=== PATIENT | male | born 1935 | race Caucasian/White ===

== ENCOUNTER 2020-01-19 13:55 | Outpatient (CLI) | payer MEDICARE, SELFPAY ==
--- NOTE | ~2020-01-19 | US_ITS ---
EXAMINATION: US arterial ankle brachial ind DATE: 01/19/2020 14:49 INDICATION: Peripheral arterial occlusive disease. TECHNIQUE: Segmental pressures and plethysmographic and Doppler waveforms of the brachial and lower e xtremity arteries were obtained. COMPARISON: 01/01/2019 FINDINGS: Right and left brachial artery pressures of 130 mm Hg and 115 mm Hg, respectively, are concordant (no rmal difference <= 30 mmHg). The right ankle-brachial index (YOVANNY) is unable to be obtained due to inability to occlude the vessel. The right great toe-brachial index (TBI) is 0.42 (normal >= 0.65). Arterial Doppler waveforms are tr iphasic with brisk systolic upstrokes at both the right posterior tibial and dorsalis pedis arteries. The left YOVANNY is unable to be obtained due to inability to occlude the vessels. The left TBI is 0.40. Arterial Doppler waveforms are triphasic with brisk systolic upstrokes at both the left posterior tib ial and dorsalis pedis arteries. IMPRESSION: 1. 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 Reviewed, dictated and finalized at location A. UNITY RECREATION PROGRAMMER IMPRESSION: 1. 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
== END 2020-01-19 13:56 | disposition home or self-care (01) ==
LOC: CHSIMG 13:56
PROVIDERS: PCP Internal Medicine; Visit Provider Internal Medicine
DX: I73.9 Peripheral vascular disease, unspecified (principal)
CPT/HCPCS: 93922

== ENCOUNTER 2020-01-27 14:07 | Outpatient (CLI) | payer MEDICARE, SELFPAY ==
--- NOTE | ~2020-01-27 | CT_ITS ---
EXAMINATION: CTA neck EXAM DATE: 01/27/2020 15:33 INDICATION: Headache. TECHNIQUE: Spiral CTA of the carotid arteries was performed with intravenous injection 100cc of Omnip aque 350. Axial, coronal, sagittal reformatted images reviewed. Additional reformatted images creat ed on dedicated 3-D workstation. NASCET comparable standard used to assess the degree of arterial st enosis. The dose-length product (DLP) for this examination was 579.59 mGy-cm. The exposure was tail ored according to patient size (auto mA exposure control), and iterative reconstruction (ASIR) was us ed as additional dose reduction technique. There is no prior study for comparison. FINDINGS: There is only minimal amount of carotid enhancement at time of imaging. There is moderate r ight, mild left carotid bulb arterial sclerosis with right carotid 45% stenosis, 0% left carotid sten osis. No cervical lymphadenopathy. Advanced cervical spondylosis. Bilateral carotid siphon arterial s clerosis. Right vertebral artery is dominant. Advanced cervical spondylosis. IMPRESSION: 1. Right carotid bulb 45% stenosis. 2. Left carotid bulb 0% stenosis. . Reviewed, dictated and finalized at location B. GER FEDERAL
--- NOTE | ~2020-01-27 | CT_ITS ---
EXAMINATION: CT brain wo/w con DATE: 01/27/2020 15:36 INDICATION: Trach. History is severe carotid stenosis. TECHNIQUE: Computed tomography (CT) of the head was performed without and with 100 mL Omnipaque-350 i ntravenous contrast. Sagittal and coronal reconstructions were performed. Stevie dose Cullen head Th e dose-length product was 605.33 mGy-cm. COMPARISON: head CT dated 11/13/2016 FINDINGS: Small old lacunar infarct at the body of the right caudate. No acute intracranial hemorrhage, acute i nfarction or abnormal extra axial fluid collection. Symmetric prominence of the sulci and subarachnoi d spaces overlying the convexities consistent with mild to moderate age-appropriate diffuse cerebral volume loss. Ventricles are normal and symmetric with normal variant cavum septum pellucidum. No mass /mass effect. No abnormally enhancing brain lesions. Intracranial calcified cerebral atherosclerosis is noted. Although not performed as a dedicated CT angiogram and contrast opacification is suboptimal , there appears to be either diminutive or absent distal portion of the intracranial left vertebral a rtery. Changes of bilateral intraocular lens replacement. The orbits, paranasal sinuses and mastoid air cells are normal. IMPRESSION: 1. No acute intracranial process or abnormally enhancing brain lesions. 2. 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 Reviewed, dictated and finalized at location A. RLEADER
--- NOTE | ~2020-01-27 | XR_ITS ---
EXAMINATION: XR hip LT min 2V DATE: 01/27/2020 14:44 INDICATION: Left hip pain. TECHNIQUE: 2 views of left hip were obtained. COMPARISON: Left hip radiographs 06/06/2016 FINDINGS: Bone alignment is normal. No fracture. There is mild left hip osteoarthritis. Surgical clip s overlie the pelvis. IMPRESSION: 1. Mild left hip osteoarthritis. Reviewed, dictated and finalized at location A. BURSEMENT CONSULTANT
[2020-01-27 14:34] LABS: Estimated Glomerular Filt Rate 56
== END 2020-01-27 14:08 | disposition home or self-care (01) ==
LOC: CHSIMG 14:10
PROVIDERS: PCP Internal Medicine; Visit Provider Internal Medicine
DX: R51 Headache (principal); M25.552 Pain in left hip
CPT/HCPCS: 70470; 70498; 73502; Q9965

== ENCOUNTER 2020-01-28 12:31 | Emergency (ER) | payer MEDICARE, SELFPAY ==
--- NOTE | ~2020-01-28 | XR_ITS ---
EXAMINATION: XR shoulder LT min 2V EXAM DATE: 01/28/2020 13:15 INDICATION: Left shoulder. Fall. TECHNIQUE: The following left shoulder projections obtained: frontal projection with internal rotatio n, frontal projection with external rotation, Grashey, and scapular Y view (4+ views). Comparison is made to prior examination from 05/11/2018. FINDINGS: No evidence of left shoulder rotator cuff calcific tendinosis. There is mild glenohumera l, moderate acromioclavicular joint primary osteoarthritis. There are no acute fractures or dislocati ons identified. There is no subcutaneous gas. The soft tissue is unremarkable. There are no radio paque foreign bodies. IMPRESSION: 1. XR shoulder LT min 2V exam without acute osseous findings. Reviewed, dictated and finalized at location B. INE FURNACE TENDER
--- NOTE | ~2020-01-28 | XR_ITS ---
EXAMINATION: XR shoulder RT min 2V EXAM DATE: 01/28/2020 13:16 INDICATION: Initial encounter following injury, with pain of the right shoulder. TECHNIQUE: The following right shoulder projections obtained: frontal projection with internal rotati on, frontal projection with external rotation, Grashey, and scapular Y view (4+ views). There is no prior study for comparison. FINDINGS: There is moderate glenohumeral and acromioclavicular joint primary osteoarthritis. There are no acute fractures or dislocations identified. There is no subcutaneous gas. The soft tissue i s unremarkable. There are no radiopaque foreign bodies. IMPRESSION: 1. XR shoulder RT min 2V exam without acute osseous findings. Reviewed, dictated and finalized at location B. ING AND CREASING PRESS OPERATOR
--- NOTE | ~2020-01-28 | CT_ITS ---
EXAMINATION: CT brain wo con, CT cervical spine wo con EXAM DATE: 01/28/2020 13:14 (accession [id number]), 01/28/2020 13:16 (accession [id number]) INDICATION: Fall, posterior skull injury. Bilateral arm numbness. TECHNIQUE: Spiral CT of the head was performed without contrast. Axial, coronal and sagittal images were reviewed. Spiral CT of the cervical spine was performed without contrast. Axial images were rev iewed. Coronal and sagittal reformatted images were also reviewed. The dose-length product (DLP) fo r this examination was 605.33 (accession [id number]), 540.57 (accession [id number]) mGy-cm. The exposure was tailored according to patient size, and iterative reconstruction (ASIR) was used as additional dose reduction technique. Comparison is made to prior examination from 01/27/2017. FINDINGS: HEAD CT: Small old right caudate lacunar infarction. There is no acute intraparenchymal hemorrhage. No evidence of intraparenchymal brain mass lesion. No evidence of acute infarction. There is mild pe riventricular and subcortical hypodensity, nonspecific but probably related to small vessel ischemic disease. There is moderate prominence of the sulci and ventricles related to cerebral atrophy. Th ere is intracranial carotid arteriosclerosis. There is no mass effect or midline shift. There is no obstructive hydrocephalus suspected. There are no extra-axial collections. There are no acute calv arial fractures. Patient has had bilateral ocular lens surgery. Moderate size posterior scalp contu sandra/hematoma. The visualized sinuses and mastoid air cells are well aerated. CERVICAL CT: There are large endplate osteophytes. There is no evidence of acute cervical fracture. The odontoid process is intact. Pre-dens space is normal. Prevertebral soft tissue is normal. Ther e are no soft tissue abnormalities identified. There is no disc space widening or traumatic vertebra l body subluxation suspected. Moderate cervical disc disease. Advanced cervical arthropathy. A deta iled level by level evaluation of spondylosis can be added as addendum if requested. IMPRESSION: 1. No acute intracranial or cervical findings. 2. Moderate posterior scalp contusion/hematoma. 3. Advanced cervical arthropathy. Reviewed, dictated and finalized at location B. NQUENCY COUNSELOR IMPRESSION: 1. No acute intracranial or cervical findings. 2. Moderate posterior scalp contusion/hematoma. 3. Advanced cervical arthropathy.
[2020-01-28 12:35] VITALS: BP 124/71; PULSE 62; RESP 15; TEMP 36.4; O2SAT 99
--- NOTE | 2020-01-28 12:35 | ED.FALL ---
HPI - Fall General Chief Complaint: Fall Stated Complaint: ambulance Time Seen by Provider: 01/28/20 12:35 Source: patient and EMS Mode of arrival: EMS Limitations: no limitations Related Data Allergies Allergy/AdvReac Type Severity Reaction Status Date / Time No Known Allergies Allergy Verified 01/28/20 12:51 Review of Systems ENT: Reports system reviewed and no additional complaints, except as documented Cardiovascular: Cardiovascular: Reports no additional cardiovascular complaints Gastrointestinal: Gastrointestinal: Reports no additional gastrointestinal complaints Musculoskeletal: Comments: Patient concerned that he does not feel like his hands are moving like they should. Neurologic: Reports system reviewed and no additional complaints, except as documented Psychiatric: Psychiatric: Reports no additional psychiatric complaints PMFSH Past Medical History Medical History (Updated 01/28/20 @ 18:19 by Pedro Crespo MD) Atrial fibrillation Coronary artery disease Depression Peripheral neuropathy Spinal stenosis Subdural hematoma Surgical History Surgical History (Updated 01/28/20 @ 18:19 by Pedro Crespo MD) History of appendectomy History of cholecystectomy History of coronary artery stent placement History of knee replacement Social History Social History (Updated 01/28/20 @ 18:19 by Pedro Crespo MD) Smoking status: Never smoker Alcohol intake: never Substance use: never Exam Const: General: healthy appearing, no acute distress and alert Nutritional Appearance: well nourished Orientation/consciousness: patient oriented x3 HENMT: Head: hematoma left occipital Ears: external ears normal and TM abnormal Mouth: Yes lip normal Eyes: Conjunctivae: conjunctivae normal Pupils: Equal, round and reactive pupils present EOM: EOMs intact bilaterally Neck: Neck: normal visual inspection and trachea midline Resp: Effort & Inspection: normal respiratory effort Auscultation: clear to auscultation bilaterally Cardio: Rate: regular rate Rhythm: abnormal rhythm irregularly irregular GI: Auscultation: normal bowel sounds Back/Spine/Pelvis: Cervical Spine: collar present ( removed following normal CT scan.), pain with cervical ROM, Cervical spine tenderness ( posterior posterior neck in the area of C5-C6 C7) and No step off deformity Skin: General skin exam: normal color Rashes: no rashes Neuro: General: patient oriented x3, moves all extremities and no focal motor deficits Speech: normal speech Extrem: General: normal to inspection and no pedal edema Psych: Appearance: grossly normal and well kempt Mental Status: mental status grossly normal Affect: normal affect Attitude: cooperative Thought content: Yes Normal thought content present Course Vital Signs Vital signs: Vital Signs Temperature 36.4 C 01/28/20 12:35 Pulse Rate 62 01/28/20 12:35 Respiratory Rate 15 01/28/20 12:35 Blood Pressure 124/71 01/28/20 12:35 Pulse Oximetry 99 01/28/20 12:35 Temperature 36.4 C 01/28/20 12:35 Pulse Rate 62 01/28/20 12:35 Respiratory Rate 15 01/28/20 12:35 Blood Pressure 142/78 H 01/28/20 15:38 Pulse Oximetry 99 01/28/20 12:35 Discharge Plan Discharge Clinical Impression: Contusion Qualifiers: Encounter type: initial encounter Contusion area: head Contusion of head detail: scalp Qualified Code(s): S00.03XA - Contusion of scalp, initial encounter Neck strain Qualifiers: Encounter type: initial encounter Qualified Code(s): S16.1XXA - Strain of muscle, fascia and tendon at neck level, initial encounter Patient Disposition: Home, Self-Care Condition: Stable Instructions: Cervical Strain (ED), Scalp Contusion in Adults (ED) Additional Instructions: follow-up with primary care physician if not significantly improved. May have to consider MRI of the neck if worsening symptoms in the arms. Use Tylenol as needed. Follow-up/Referral
[2020-01-28 14:39] VITALS: BP 128/84
[2020-01-28 15:38] VITALS: BP 142/78
== END 2020-01-28 15:40 | disposition home or self-care (01) ==
PROVIDERS: Emergency Provider Emergency Medicine; PCP Internal Medicine
DX: S00.03XA Contusion of scalp, initial encounter (principal); S16.1XXA Strain of muscle, fascia and tendon at neck level, initial encounter; I48.91 Unspecified atrial fibrillation; I25.10 Atherosclerotic heart disease of native coronary artery without angina pectoris; W19.XXXA Unspecified fall, initial encounter
CPT/HCPCS: 70450; 72125; 73030; 99282; 99284

== ENCOUNTER 2020-06-13 08:35 | Outpatient (CLI) | payer MEDICARE, SELFPAY ==
[2020-06-13 08:49] LABS: Basophils Absolute Auto 0.03 K/mm3 (0.00-0.10); Basophils Percent Auto 0.6 % (0.0-1.0); Eosinophils Absolute Auto 0.13 K/mm3 (0.02-0.50); Eosinophils Percent Auto 2.5 % (1.0-6.0); Hematocrit 34.3 % (37.0-46.0); Hemoglobin 11.4 g/dL (12.4-15.3); Immature Granulocyte Absolute 0.02 K/mm3 (0.00-0.00); Immature Granulocyte Percent A 0.4 % (0.0-0.0); Lymphocytes Absolute Auto 1.53 K/mm3 (1.10-4.50); Lymphocytes Percent Auto 29.2 % (18.0-42.0); Mean Corpuscular HGB Conc 33.2 g/dL (32.0-36.0); Mean Corpuscular Hemoglobin 33.2 pg (27.0-31.0); Mean Platelet Volume 9.3 fl (8.7-11.0); Monocytes Absolute Auto 0.36 K/mm3 (0.10-0.90); Monocytes Percent Auto 6.9 % (2.0-11.0); Neutrophils Absolute Auto 3.2 K/mm3 (1.7-7.2); Neutrophils Percent Auto 60.4 % (50.0-70.0); Platelet Count Result 110 K/mm3 (150-420); Red Blood Count 3.43 M/mm3 (4.70-6.10); Red Cell Distribution Width 12.6 % (11.6-14.4); White Blood Count 5.2 K/mm3 (4.8-10.8)
[2020-06-13 08:59] LABS: Hemoglobin A1C 6.5 % (<5.7)
[2020-06-13 09:11] LABS: BNP 77 pg/mL (0-100)
[2020-06-13 09:35] LABS: Alanine Aminotransferase 20 U/L (16-63); Albumin Level 3.6 g/dL (3.4-5.0); Alkaline Phosphatase 47 U/L (46-116); Anion Gap 6.3 mmol/L (7-16); Aspartate Amino Transferase 17 U/L (15-37); Bilirubin,Total 0.5 mg/dL (0.00-1.00); Blood Urea Nitrogen 18 mg/dL (7-18); Calcium 9.5 mg/dL (8.5-10.1); Carbon Dioxide 32 mmol/L (21-32); Chloride 101 mmol/L (98-108); Cholesterol 100 mg/dL (0-200); Creatine Kinase 95 U/L (39-308); Estimated Glomerular Filt Rate > 60; Glucose 109 mg/dL (70-99); HDL Direct 48 mg/dL (40-60); LDL Cholesterol Calculated 37 mg/dL (<130); Magnesium 1.4 mg/dL (1.8-2.4); Osmolality Calculated 282 mOsm/kg (285-295); Potassium 4.3 mmol/L (3.5-5.1); Sodium 135 mmol/L (136-145); Total Protein 6.4 g/dL (6.4-8.2); Triglycerides 74 mg/dL (0-150)
[2020-06-13 14:43] LABS: Add Urine Microscopic? YES; Appearance Urine Clear (Clear); Bilirubin Urine Negative (Negative); Blood Urine Negative (Negative); Color Urine Yellow (Yellow); Glucose Urine UA Negative (Negative); Ketones Urine Negative (Negative); Leukocyte Esterase Ur 2+ LEU/UL (Negative); Nitrate Urine Negative (Negative); Protein Urine Negative (Negative); Urobilinogen Urine 0.2 mg/dL (0.2-1.0)
[2020-06-13 14:56] LABS: Bacteria Urine Trace /hpf; RBC Urine None seen /hpf (0-2); Squamous Epithelial Cell Urine None seen /hpf (Few); WBC Urine 16-20 /hpf (0-3)
[2020-06-13 15:51] LABS: Creatinine Urine 62.34 mg/dL (40-278)
[2020-06-13 15:58] LABS: MALB Creatinine Ratio 0.1 mg/g (0-30); Microalbumin Urine Random < 0.1 mg/L
== END 2020-06-13 08:36 | disposition home or self-care (01) ==
LOC: CHSLAB 08:37
PROVIDERS: PCP Internal Medicine; Visit Provider Internal Medicine
DX: E78.5 Hyperlipidemia, unspecified (principal); E11.65 Type 2 diabetes mellitus with hyperglycemia; I10 Essential (primary) hypertension; E83.42 Hypomagnesemia; I50.9 Heart failure, unspecified; R30.9 Painful micturition, unspecified
CPT/HCPCS: 36415; 80053; 80061; 81001; 82043; 82550; 83036; 83735; 83880; 85025; 87086

== ENCOUNTER 2020-12-12 08:50 | Outpatient (CLI) | payer MEDICARE, SELFPAY ==
[2020-12-12 09:08] LABS: Basophils Absolute Auto 0.02 K/mm3 (0.00-0.10); Basophils Percent Auto 0.3 % (0.0-1.0); Eosinophils Absolute Auto 0.11 K/mm3 (0.02-0.50); Eosinophils Percent Auto 1.9 % (1.0-6.0); Hematocrit 34.5 % (37.0-46.0); Hemoglobin 11.4 g/dL (12.4-15.3); Immature Granulocyte Absolute 0.03 K/mm3 (0.00-0.00); Immature Granulocyte Percent A 0.5 % (0.0-0.0); Lymphocytes Absolute Auto 1.62 K/mm3 (1.10-4.50); Mean Corpuscular Hemoglobin 31.8 pg (27.0-31.0); Mean Corpuscular Volume 96.1 fL (78.0-102.0); Mean Platelet Volume 9.4 fl (8.7-11.0); Monocytes Absolute Auto 0.39 K/mm3 (0.10-0.90); Monocytes Percent Auto 6.7 % (2.0-11.0); Neutrophils Absolute Auto 3.6 K/mm3 (1.7-7.2); Neutrophils Percent Auto 62.6 % (50.0-70.0); Platelet Count Result 114 K/mm3 (150-420); Red Blood Count 3.59 M/mm3 (4.70-6.10); Red Cell Distribution Width 13.2 % (11.6-14.4); White Blood Count 5.8 K/mm3 (4.8-10.8)
[2020-12-12 09:09] LABS: Add Urine Microscopic? NO; Appearance Urine Clear (Clear); Bilirubin Urine Negative (Negative); Blood Urine Negative (Negative); Color Urine Yellow (Yellow); Glucose Urine UA Negative (Negative); Ketones Urine Negative (Negative); Leukocyte Esterase Ur Negative (Negative); Nitrate Urine Negative (Negative); Protein Urine Negative (Negative); Urobilinogen Urine 0.2 mg/dL (0.2-1.0)
[2020-12-12 09:41] LABS: Creatinine Urine 23.93 mg/dL (40-278)
[2020-12-12 09:45] LABS: BNP 84.2 pg/mL (0-100)
[2020-12-12 09:58] LABS: MALB Creatinine Ratio 5.4 mg/g (0-30); Microalbumin Urine Random < 1.3 mg/L
[2020-12-12 10:02] LABS: Hemoglobin A1C 6.4 % (<5.7)
[2020-12-12 10:10] LABS: Alanine Aminotransferase 22 U/L (16-63); Albumin Level 3.8 g/dL (3.4-5.0); Alkaline Phosphatase 52 U/L (46-116); Anion Gap 5 mmol/L (8-16); Aspartate Amino Transferase 17 U/L (15-37); Bilirubin,Total 0.6 mg/dL (0.00-1.00); Blood Urea Nitrogen 21 mg/dL (7-18); Calcium 9.3 mg/dL (8.5-10.1); Carbon Dioxide 30 mmol/L (21-32); Chloride 102 mmol/L (98-108); Cholesterol 133 mg/dL (0-200); Creatine Kinase 167 U/L (39-308); Estimated Glomerular Filt Rate > 60; Free T3 2.05 pg/mL (2.18-3.98); Free T4 Free Thyroxine 0.85 ng/dL (0.76-1.46); Glucose 133 mg/dL (70-99); HDL Direct 58 mg/dL (40-60); LDL Cholesterol Calculated 62 mg/dL (<130); Magnesium 1.4 mg/dL (1.8-2.4); Osmolality Calculated 289 mOsm/kg (285-295); Potassium 4.8 mmol/L (3.5-5.1); Sodium 137 mmol/L (136-145); Total Protein 6.7 g/dL (6.4-8.2); Triglycerides 64 mg/dL (0-150)
== END 2020-12-12 08:51 | disposition home or self-care (01) ==
LOC: CHSLAB 08:54
PROVIDERS: PCP Internal Medicine; Visit Provider Internal Medicine
DX: E11.40 Type 2 diabetes mellitus with diabetic neuropathy, unspecified (principal); E78.2 Mixed hyperlipidemia; I10 Essential (primary) hypertension; I50.9 Heart failure, unspecified; N30.00 Acute cystitis without hematuria; I48.19 Other persistent atrial fibrillation
CPT/HCPCS: 36415; 80053; 80061; 81003; 82043; 82550; 83036; 83735; 83880; 84439; 84443; 84481; 85025; 87077; 87086; 87088; 87186

== ENCOUNTER 2021-02-26 15:12 | Outpatient (CLI) | payer MEDICARE, SELFPAY ==
--- NOTE | ~2021-02-26 | XR_ITS ---
EXAMINATION: XR foot RT min 3V DATE: 02/26/2021 15:59 INDICATION: Right lateral foot pain. TECHNIQUE: 4 views of right foot were obtained. COMPARISON: None. FINDINGS: Bone alignment is normal. No acute fracture. There is mild osteoarthritis of first metatars ophalangeal joint and many of the interphalangeal joints and midfoot joints. There are enthesophytes at the posterior and plantar aspects of calcaneal tuberosity. There is ankle soft tissue swelling. IMPRESSION: 1. Mild polyarticular osteoarthritis. Reviewed, dictated and finalized at location A.
== END 2021-02-26 15:13 | disposition home or self-care (01) ==
LOC: CHSIMG 15:15
PROVIDERS: PCP Internal Medicine; Visit Provider Podiatrist
DX: S90.111D Contusion of right great toe without damage to nail, subsequent encounter (principal)
CPT/HCPCS: 73630

== ENCOUNTER 2021-03-20 11:07 | Outpatient (CLI) | payer MEDICARE, SELFPAY ==
[2021-03-20 12:26] LABS: Anion Gap 8 mmol/L (8-16); Blood Urea Nitrogen 33 mg/dL (7-18); Calcium 9.5 mg/dL (8.5-10.1); Carbon Dioxide 29 mmol/L (21-32); Chloride 101 mmol/L (98-108); Estimated Glomerular Filt Rate 52; Glucose 167 mg/dL (70-99); Osmolality Calculated 297 mOsm/kg (285-295); Potassium 4.3 mmol/L (3.5-5.1); Sodium 138 mmol/L (136-145)
== END 2021-03-20 11:08 | disposition home or self-care (01) ==
LOC: CHSLAB 11:10
PROVIDERS: PCP Internal Medicine
DX: R60.0 Localized edema (principal); I10 Essential (primary) hypertension; Z79.899 Other long term (current) drug therapy
CPT/HCPCS: 36415; 80048

== ENCOUNTER 2021-07-06 12:28 | Outpatient (CLI) | payer MEDICARE, SELFPAY ==
--- NOTE | ~2021-07-06 | US_ITS ---
EXAMINATION: US retroperitoneal comp DATE: 07/06/2021 13:25 INDICATION: Urinary retention. TECHNIQUE: Multiple ultrasound grayscale images of the kidneys were obtained. COMPARISON: Ultrasound 04/14/2019 FINDINGS: The right kidney measures 10.1 x 6.2 x 6.0 cm. The left kidney measures 10.7 x 5.8 x 5.5 cm. The kidn eys demonstrate normal parenchymal echogenicity. There are cysts in the kidneys measuring up to 8.8 c m on the left. There is no hydronephrosis. The bladder is normal. IMPRESSION: 1. Normal kidney sizes. No hydronephrosis. Reviewed, dictated and finalized at location A.
== END 2021-07-06 12:29 | disposition home or self-care (01) ==
PROVIDERS: PCP Internal Medicine
DX: R33.9 Retention of urine, unspecified (principal)
CPT/HCPCS: 76770

== ENCOUNTER 2021-08-20 05:36 | Observation (INO) | payer MEDICARE, SELFPAY ==
[2021-08-20] VITALS (7 sets, daily range): BP systolic 90–126; BP diastolic 61–72; PULSE 70–97; RESP 16–20; TEMP 36.5–37.1; O2SAT 93–99; BMI 26.8
--- NOTE | ~2021-08-20 | CT_ITS ---
EXAMINATION: CT facial bones wo con DATE: 08/20/2021 07:02 INDICATION: Face injury. TECHNIQUE: Computed tomography (CT) of the facial bones and maxillofacial region was performed withou t intravenous contrast. Automated exposure control and iterative reconstruction technique were employ ed. The dose-length product was 292.12 mGy-cm. COMPARISON: Neck CT 01/27/2020 FINDINGS: There are likely changes of ocular lens replacement surgeries. There is left cheek soft tis lazaro swelling. There is mild leftward deviation of the nasal septum. There is mild mucosal thickening in the paranasal sinuses. The mastoid air cells are normal. There is severe cervical spondylosis. The re is ankylosis of the uncovertebral joints and facet joints bilaterally at C3-C4. IMPRESSION: 1. No fracture. Reviewed, dictated and finalized at location A. IMPRESSION: 1. No fracture.
--- NOTE | ~2021-08-20 | CT_ITS ---
EXAMINATION: CT cervical spine wo con EXAM DATE: 08/20/2021 16:00 INDICATION: Fall from standing position pt fell this morning with pain towards neck area. hx surg 200 0 . TECHNIQUE: Spiral CT of the cervical spine was performed without contrast. Axial images were reviewe d. Coronal and sagittal reformatted images cervical spine were also reviewed. The dose-length produc t (DLP) for this examination was 369.87 mGy-cm. The exposure was tailored according to patient size (auto mA exposure control), and iterative reconstruction (ASIR) was used as additional dose reduction technique. Comparison is made to prior examination from 06/27/2020. FINDINGS: There is no evidence of acute cervical fracture. The odontoid process is intact. Pre-dens space is normal. Prevertebral soft tissue is normal. There are no soft tissue abnormalities identi fied. There is no disc space widening or traumatic vertebral body subluxation suspected. There is a nterior plate and supporting screws C5-C7, new compared to previous examination. Interbody devices at these levels. Again there is some solid bone bridging of anterior large osteophyte at C4-5 level. Th ere is advanced cervical arthropathy with significant multilevel neural foraminal stenosis. A detail ed level by level evaluation of spondylosis can be added as addendum if requested. IMPRESSION: 1. No acute cervical fracture. Intact C5-7 fusion. 2. Advanced cervical arthropathy. Reviewed, dictated and finalized at location B.
--- NOTE | ~2021-08-20 | CT_ITS ---
EXAMINATION: CT brain wo con DATE: 08/20/2021 07:03 INDICATION: Head injury. TECHNIQUE: Computed tomography (CT) of the head was performed without intravenous contrast. The mA wa s adjusted according to patient size. Iterative reconstruction technique was employed. The dose-lengt h product was 681.00 mGy-cm. 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 There are scattered areas of low a ttenuation in the cerebral white matter, which is within normal limits for the patient's age. There i s no intracranial hemorrhage, acute infarction, or abnormal intracranial mass lesion. The ventricles are normal in size. There are likely changes of ocular lens replacement surgeries. There is mild muco delmy thickening in the paranasal sinuses. There are likely changes of ocular lens replacement surgerie s. The mastoid air cells are normal. There is posterior scalp soft tissue swelling. IMPRESSION: 1. 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 Reviewed, dictated and finalized at location A.
--- NOTE | ~2021-08-20 | XR_ITS ---
EXAMINATION: XR chest 1V portable DATE: 08/20/2021 07:03 INDICATION: Fall. TECHNIQUE: A single frontal view of the chest was obtained. COMPARISON: Chest 2 views 10/20/2019, CT abdomen and pelvis 02/24/2008 FINDINGS: There is chronic mild elevation of left hemidiaphragm. Calcified right lung nodules and stephen cified right hilar lymph nodes are consistent with old granulomatous disease. There are peripheral in terstitial opacities in the lungs bilaterally. No pleural effusion or pneumothorax. The heart size is normal. IMPRESSION: 1. New peripheral interstitial opacities in the lungs bilaterally, which may be mild pulmonary edema or mild atelectasis. Reviewed, dictated and finalized at location A.
--- NOTE | ~2021-08-20 | XR_ITS ---
EXAMINATION: XR shoulder LT min 2V DATE: 08/21/2021 12:47 INDICATION: Left shoulder pain. TECHNIQUE: 5 views of left shoulder were obtained. COMPARISON: Left shoulder radiograph 01/28/2020 FINDINGS: Bone alignment is normal. No fracture. There is mild osteoarthritis of glenohumeral joint a nd severe osteoarthritis of acromioclavicular joint. IMPRESSION: 1. Polyarticular osteoarthritis. Reviewed, dictated and finalized at location A.
--- NOTE | 2021-08-20 06:04 | ED.FALL ---
HPI - Fall General Chief Complaint: Fall Stated Complaint: Fall Time Seen by Provider: 08/20/21 05:40 Source: patient, family, EMS and RN notes reviewed Mode of arrival: EMS Limitations: no limitations and other (pt was confused but explained his ear-piece function at H and P) History of Present Illness MD complaint: fall Onset (ago): hour(s) (1) Fall from: chair Fall witnessed: yes, by family Place fall occurred: home Loss of consciousness: none Prolonged down time: no Symptoms prior to fall: none Context: other (was self-catheterizing and lost his balance.) Location of injury: face Severity: mild Severity scale (1-10): 1 Quality: dull Associated symptoms (after fall): denies Related Data Home Medications Medication Instructions Recorded Confirmed apixaban [Eliquis] 5 mg PO DAILY 08/20/21 08/20/21 furosemide 20 mg PO DAILY 08/20/21 08/20/21 metformin 500 mg PO BID 08/20/21 08/20/21 metoprolol succinate 150 mg PO DAILY 08/20/21 08/20/21 rosuvastatin 10 mg PO DAILY 08/20/21 08/20/21 spironolactone 25 mg PO DAILY 08/20/21 08/20/21 Allergies Allergy/AdvReac Type Severity Reaction Status Date / Time No Known Allergies Allergy Verified 01/28/20 12:51 Review of Systems Review of Systems: All systems reviewed & are unremarkable except as noted in HPI and below PMFSH Past Medical History Medical History Atrial fibrillation Coronary artery disease Depression Peripheral neuropathy Spinal stenosis Subdural hematoma Surgical History Surgical History History of appendectomy History of cholecystectomy History of coronary artery stent placement History of knee replacement Social History Social History Smoking status: Never smoker Alcohol intake: never Substance use: never Gender identity (if verbalized by the patient): Male Sexual Orientation (if Verbalized by the Patient): Straight or Heterosexual Spiritual care concerns: No Exam Const: General: no acute distress and alert HENMT: General nose exam: Normal external nose present and Normal nares present Face and sinus: normal facial exam (left zygoma abrasion with no acute bleeding.) Mouth: Yes moist mucous membranes Eyes: Conjunctivae: conjunctivae normal Pupils: Equal, round and reactive pupils present EOM: EOMs intact bilaterally Neck: Neck: normal visual inspection Chest: Chest palpation & inspection: normal inspection of the chest Resp: Effort & Inspection: normal respiratory effort Auscultation: clear to auscultation bilaterally Cardio: Rate: regular rate Rhythm: regular rhythm GI: GI Palp: Yes Soft to palpation (non-tender.) Percussion: Yes normal to percussion : General: Yes bladder normal to palpation and Yes no CVA tenderness Testes: Testes normal Back/Spine/Pelvis: Back: no CVA tenderness Skin: General skin exam: normal color Rashes: no rashes Neuro: General: patient oriented x3, moves all extremities, no meningeal signs, no focal motor deficits and CN's II-XI intact bilaterally Extrem: General: normal to inspection and no pedal edema Psych: Appearance: grossly normal and well kempt Affect: normal affect Thought content: Yes Normal thought content present Course Course Emergency Course: no evident additional trauma. pt was stable and pain-free. pt was endorsed to Dr Galarza at 0700 Reevaluation(s) Date: 08/20/21 Time: 06:11 Vital Signs Vital signs: Vital Signs Temperature 36.9 C 08/20/21 06:37 Pulse Rate 89 08/20/21 06:37 Respiratory Rate 20 08/20/21 06:37 Blood Pressure 126/65 08/20/21 06:37 Pulse Oximetry 95 08/20/21 06:37 Temperature 36.4 C 08/21/21 04:00 Pulse Rate 79 08/21/21 04:00 Respiratory Rate 16 08/21/21 04:00 Blood Pressure 125/72 08/20/21 20:00 Pulse Oximetry 98 08/21/21 04:00
--- NOTE | 2021-08-20 06:14 | ECG_ITS ---
Measurements Intervals [place] Rate: 128 P: LA: 0 QRS: -39 QRSD: 80 T: 27 QT: 283 QTc: 414 Interpretive Statements ATRIAL FIBRILLATION WITH RAPID VENTRICULAR RESPONSE LEFT AXIS DEVIATION EARLY PRECORDIAL R/S TRANSITION BASELINE ARTIFACT- I, II, III, AVR, AVL, AVF, V6 ABNORMAL ECG Electronically Signed On 08-20-2021 7:29:08 CDT by Markus Nguyễn D.O.
[2021-08-20] MEDS: ACETAMINOPHEN 325 MG TABLET 650 MG PO (06:34)
[2021-08-20 06:35] LABS: Basophils Absolute Auto 0.04 K/mm3 (0.00-0.10); Basophils Percent Auto 0.4 % (0.0-1.0); Eosinophils Absolute Auto 0.14 K/mm3 (0.02-0.50); Eosinophils Percent Auto 1.2 % (1.0-6.0); Hematocrit 33.8 % (37.0-46.0); Hemoglobin 11.3 g/dL (12.4-15.3); Immature Granulocyte Absolute 0.07 K/mm3 (0.00-0.00); Immature Granulocyte Percent A 0.6 % (0.0-0.0); Lymphocytes Percent Auto 3.6 % (18.0-42.0); Mean Corpuscular HGB Conc 33.4 g/dL (32.0-36.0); Mean Corpuscular Hemoglobin 33.2 pg (27.0-31.0); Mean Corpuscular Volume 99.4 fL (78.0-102.0); Mean Platelet Volume 9.3 fl (8.7-11.0); Monocytes Absolute Auto 0.69 K/mm3 (0.10-0.90); Monocytes Percent Auto 6.2 % (2.0-11.0); Neutrophils Absolute Auto 9.9 K/mm3 (1.7-7.2); Platelet Count Result 124 K/mm3 (150-420); Red Cell Distribution Width 12.8 % (11.6-14.4); White Blood Count 11.2 K/mm3 (4.8-10.8)
[2021-08-20 06:50] LABS: INR 1.1; Prothrombin Time 11.4 Seconds (9.50-12.10)
[2021-08-20 07:00] LABS: Alanine Aminotransferase 29 U/L (16-63); Alkaline Phosphatase 58 U/L (46-116); Aspartate Amino Transferase 23 U/L (15-37); Bilirubin,Total 0.7 mg/dL (0.00-1.00); Blood Urea Nitrogen 26 mg/dL (7-18); Calcium 9.3 mg/dL (8.5-10.1); Carbon Dioxide 27 mmol/L (21-32); Estimated Glomerular Filt Rate 56; Glucose 202 mg/dL (70-99); Total Protein 6.3 g/dL (6.4-8.2); Troponin I 12.8 ng/L (0.00-60.4)
--- NOTE | 2021-08-20 07:20 | PC.NURSE ---
report to taylor guadarrama.
[2021-08-20 07:22] LABS: Add Urine Microscopic? NO; Appearance Urine Clear (Clear); Bilirubin Urine Negative (Negative); Blood Urine Negative (Negative); Color Urine Yellow (Yellow); Glucose Urine UA Negative (Negative); Ketones Urine Negative (Negative); Leukocyte Esterase Ur Negative (Negative); Nitrate Urine Negative (Negative); Protein Urine Negative (Negative); Specific Grav Ur 1.015 (1.010-1.020); Urobilinogen Urine 0.2 mg/dL (0.2-1.0)
[2021-08-20] MEDS: SODIUM CHLORIDE 0.9% IV 500 ML 999 ML IV CONT ×2 (07:28→08:47)
[2021-08-20 08:25] LABS: NT Pro B Type Natriuretic Pept 1317 pg/mL (0-450)
[2021-08-20 09:24] LABS: Anion Gap 7 mmol/L (8-16); Chloride 100 mmol/L (98-108); Osmolality Calculated 288 mOsm/kg (285-295); Potassium 4.7 mmol/L (3.5-5.1); Sodium 134 mmol/L (136-145)
--- NOTE | 2021-08-20 10:47 | PM.IMHP ---
H&P: HPI History of Present Illness Date/Time: 08/20/21 10:47 Jhon Ponce is an 86 year old male who is being admitted under observation after having fallen at home. Patient states he was getting ready to self catheterization. He had 1 hand on his walker and was bent over trying to get paper towels from his bottom drawer. It was at this point he fell and the only injuries to his left cheek that arose from him hitting his walker. Patient denies any lightheadedness, dizziness, feeling faint, loss of consciousness, chest pain, and palpitations prior to fall. Patient is on Eliquis and the CT of the head shows old lacunar infarct of left caudate nucleus no evidence of bleed per radiologist report. Patient denies pain at this time. Chief Complaint: Facial injury s/p fall at home Review of Systems Review of Systems: All systems reviewed & are unremarkable except as noted in HPI and below PMFSH Past Medical History Medical History Atrial fibrillation Coronary artery disease Depression Peripheral neuropathy Spinal stenosis Subdural hematoma Surgical History Surgical History History of appendectomy History of cholecystectomy History of coronary artery stent placement History of knee replacement Social History Social History Smoking status: Never smoker Alcohol intake: never Substance use: never Meds Home Medications and Allergies Home Medications Medication Instructions Recorded Confirmed Type apixaban [Eliquis] 5 mg PO DAILY 08/20/21 08/20/21 History furosemide 20 mg PO DAILY 08/20/21 08/20/21 History metformin 500 mg PO BID 08/20/21 08/20/21 History metoprolol succinate 150 mg PO DAILY 08/20/21 08/20/21 History rosuvastatin 10 mg PO DAILY 08/20/21 08/20/21 History spironolactone 25 mg PO DAILY 08/20/21 08/20/21 History Allergies Allergy/AdvReac Type Severity Reaction Status Date / Time No Known Allergies Allergy Verified 01/28/20 12:51 Vital Signs Vital Signs - 24 hr 08/20/21 06:37 08/20/21 08:07 Temperature 98.5 F 98.8 F Pulse Rate 89 97 Respiratory Rate 20 20 Blood Pressure 126/65 90/61 L Pulse Oximetry 95 93 Exam Const: General: cooperative, comfortable, no acute distress, alert, awake and Physically active Nutritional Appearance: average body habitus HENMT: Face and sinus: Facial tenderness on exam of face and sinuses (minimal) Face images: 1. Small wound no active bleeding. Resp: Effort & Inspection: normal respiratory effort Auscultation: clear to auscultation bilaterally Cardio: Rhythm: abnormal rhythm (A fib rate 80-90s) irregularly irregular GI: GI Palp: Yes Soft to palpation and No Tenderness to palpation present (GI) Auscultation: normal bowel sounds Skin: General skin exam: dry skin Wounds: wounds noted (Left cheek small, minimal tenderness, no active bleeding) Nails: other (white chalky toenails) Neuro: General: oriented to person, oriented to place and oriented to time Cranial nerves: Yes CN's II-XII intact bilaterally and Yes Other cranial nerve findings present (a bit EAGLE) Cognition (Neuro): normal cognition Speech: normal speech Extrem: General: edema bilateral (1+ pitting, Lt leg more swelling then right) Psych: Appearance: grossly normal Mental Status: mental status grossly normal Speech and movement: Normal speech and movement present Affect: normal affect Attitude: cooperative Thought process: Normal thought process present H&P: Results Labs Labs: Short CBC 08/20/21 Range/Units 06:31 WBC 11.2 H (4.8-10.8) K/mm3 Hgb 11.3 L (12.4-15.3) g/dL Hct 33.8 L (37.0-46.0) % Plt Count 124 L (150-420) K/mm3 BMP 08/20/21 06:31 Sodium 134 L Potassium 4.7 Chloride 100 Carbon Dioxide 27 BUN 26 H Creatinine 1.22 Glucose 202 H Calcium 9.3
[2021-08-20] MEDS: SODIUM CHLORIDE 0.9% IV 1,000 ML 150 ML IV CONT (11:16)
[2021-08-20 12:09] LABS: Glucose Point of Care 165 mg/dl (65-105)
--- NOTE | 2021-08-20 14:04 | PC.NURSE ---
Pt admitted to 2nd floor for weakness and fall at home. Personal belongings are in a pt bag in his room. Arrived to the floor in stable condition.
[2021-08-20] MEDS: traMADol HCL (*CRX) 50 MG TABLET PO (17:33)
[2021-08-20 18:08] LABS: Glucose Point of Care 146 mg/dl (65-105)
[2021-08-20 21:11] LABS: Glucose Point of Care 181 mg/dl (65-105)
[2021-08-20 21:11] LABS: Glucose Point of Care 172 mg/dl (65-105)
[2021-08-21] VITALS: PULSE 68
[2021-08-21] MEDS: ACETAMINOPHEN 325 MG TABLET 650 MG PO (03:13)
[2021-08-21 04:00] VITALS: PULSE 79; RESP 16; TEMP 36.4; O2SAT 98
[2021-08-21 05:42] LABS: Hematocrit 31.5 % (37.0-46.0); Hemoglobin 10.1 g/dL (12.4-15.3); Mean Corpuscular HGB Conc 32.1 g/dL (32.0-36.0); Mean Corpuscular Hemoglobin 32.6 pg (27.0-31.0); Mean Corpuscular Volume 101.6 fL (78.0-102.0); Mean Platelet Volume 9.7 fl (8.7-11.0); Platelet Count Result 131 K/mm3 (150-420); Red Cell Distribution Width 12.9 % (11.6-14.4); White Blood Count 7.4 K/mm3 (4.8-10.8)
[2021-08-21 06:07] LABS: Alanine Aminotransferase 25 U/L (16-63); Albumin Level 2.6 g/dL (3.4-5.0); Alkaline Phosphatase 47 U/L (46-116); Anion Gap 7 mmol/L (8-16); Aspartate Amino Transferase 16 U/L (15-37); Bilirubin,Total 0.5 mg/dL (0.00-1.00); Blood Urea Nitrogen 20 mg/dL (7-18); Calcium 8.8 mg/dL (8.5-10.1); Carbon Dioxide 28 mmol/L (21-32); Chloride 103 mmol/L (98-108); Estimated CRCL calculation 52 ml/min; Estimated Glomerular Filt Rate > 60; Glucose 120 mg/dL (70-99); Osmolality Calculated 289 mOsm/kg (285-295); Potassium 3.9 mmol/L (3.5-5.1); Sodium 138 mmol/L (136-145); Total Protein 5.6 g/dL (6.4-8.2)
[2021-08-21 06:08] LABS: NT Pro B Type Natriuretic Pept 1524 pg/mL (0-450)
[2021-08-21 07:30] VITALS: BP 114/85; PULSE 80; RESP 18; TEMP 36.4; O2SAT 95
[2021-08-21 08:00] VITALS: PULSE 69
[2021-08-21 08:20] LABS: Glucose Point of Care 140 mg/dl (65-105)
[2021-08-21] MEDS: ROSUVASTATIN 10 MG TABLET PO (08:37)
[2021-08-21 08:38] VITALS: PULSE 80
[2021-08-21] MEDS: FUROSEMIDE 20 MG TABLET PO (08:38)
[2021-08-21] MEDS: SPIRONOLACTONE 25 MG TABLET PO (08:38)
[2021-08-21] MEDS: METOPROLOL SUCCINATE EXT REL 50 MG TABCR 150 MG PO (08:38)
[2021-08-21] MEDS: APIXABAN 2.5 MG TABLET 5 MG PO (08:39)
--- NOTE | 2021-08-21 10:39 | PM.DS ---
DS: Admitting Diagnosis Discharge Date 08/21/2021 <Freddy De PazYARIEL grady - Last Filed: 08/21/21 13:23> Admitting Diagnosis Confusion, Fall <Freddy De PazYARIEL grady - Last Filed: 08/21/21 13:23> DS: Discharge Diagnosis Discharge Diagnosis (1) Weakness: Code(s): R53.1 - Weakness <Freddy De PazYARIEL grady - Last Filed: 08/21/21 13:23> Status: Acute <Freddy GonzalezYARIEL - Last Filed: 08/21/21 13:23> Assessment and Plan: PT requested for evaluation and treatment after fall with facial injury. If PT deems Pt is a candidate for continuation of PT and or OT then the Pt will work with PT/OT for the following goals: Relieve pain, Improve movement or ability, Prevent and/or recover from a fall and injury, Prevent disability, accident, injury, or surgery, Work on balance to prevent a slip or fall, Learn to use assistive devices like a walker or cane as needed. 08/21/2021 Daughter is requesting [facility] for PT/Detention to continue with above goals and to assist Pt with ADLs, straight cath care <Freddy Sadler YARIEL Gonzalez - Last Filed: 08/21/21 13:23> (2) Atrial fibrillation: Qualifiers: Atrial fibrillation type: unspecified Qualified Code(s): I48.91 - Unspecified atrial fibrillation <Freddy Sadler YARIEL Gonzalez - Last Filed: 08/21/21 13:23> Code(s): I48.91 - Unspecified atrial fibrillation <Freddy Sadler YARIEL Gonzalez - Last Filed: 08/21/21 13:23> Status: Acute <Freddy Sadler YARIEL Gonzalez - Last Filed: 08/21/21 13:23> Assessment and Plan: Continue Eliquis, Pt does not have any active bleeding s/p fall at home, Hims Manager, no chest pain, rate is controlled 80-90s 08/21/2021 Rate remains controlled, continue Eliquis, no active bleeding <Freddy FieldsYARIEL Yung - Last Filed: 08/21/21 13:23> (3) Diabetes: Code(s): E11.9 - Type 2 diabetes mellitus without complications <Freddy De PazSIDNEY grady-C - Last Filed: 08/21/21 13:23> Status: Acute <Freddy GonzalezSIDNEY-C - Last Filed: 08/21/21 13:23> Assessment and Plan: Continue Metformin, bedside glucose monitoring ACHS, Hypoglycemic protocol in place, glucose 202 in ER 08/21/2021 Glucose 120-172, continue to monitor, no adjustments or additional medications/interventions needed at this time <Freddy GonzalezSIDNEY-C - Last Filed: 08/21/21 13:23> (4) Hyperlipidemia: Code(s): E78.5 - Hyperlipidemia, unspecified <Freddy GonzalezSIDNEY-C - Last Filed: 08/21/21 13:23> Status: Acute <Freddy GonzalezSIDNEY-C - Last Filed: 08/21/21 13:23> Assessment and Plan: Continue Rosuvastatin <Freddy De PazSIDNEY grady-C - Last Filed: 08/21/21 13:23> (5) Hypertension: Code(s): I10 - Essential (primary) hypertension <Freddy GonzalezSIDNEY-C - Last Filed: 08/21/21 13:23> Status: Acute <Freddy GonzalezSIDNEY-C - Last Filed: 08/21/21 13:23> Assessment and Plan: Continue Metoprolol, Lasix, Spironolactone, monitor VS, make adjustments to medications as needed. BP 120-140/60-80 with a 1 time soft pressure at 90/61, will monitor and adjust medications as needed. 08/21/2021 VSS, continue with current regimen <Freddy De PazSIDNEY grady-C - Last Filed: 08/21/21 13:23> (6) Head injury without concussion or intracranial hemorrhage: Code(s): S09.90XA - Unspecified injury of head, initial encounter <Freddy FieldsTatiana BaldevSIDNEY grady-C - Last Filed: 08/21/21 13:23> Status: Acute <Freddy FieldsYARIEL Yung - Last Filed: 08/21/21 13:23> Assessment and Plan: No LOC, no confusion, CT head does not show bleed per report, small wound left cheek that is not actively bleeding and has a small band-aid in place, no facial fractures, no neurologic deficits noticed though Pt is a little [place]. 08/21/2021 Pt is A&Ox4, no confusion today, daughter is concerned about his cognitive function, will request HH through [facility] with Detention. Pt c/o left s
[2021-08-21 11:45] LABS: Glucose Point of Care 149 mg/dl (65-105)
[2021-08-21 12:00] VITALS: PULSE 78
--- NOTE | 2021-08-21 14:40 | PC.NURSE ---
Patient being discharge home with home health to follow up. All belongings gathered together to be sent home. IV site removed, tip intact, dressing applied to site. All discharge instructions and education reviewed with patient. Patient stated understanding. This nurse accompanied patient to front door via wheelchair. Patient left via private vehicle with daughter.
--- NOTE | 2021-08-23 12:00 | PC.NURSE ---
Pt states he received and understood his instructions. Instructions discussed at length with the daughter.
== END 2021-08-21 14:40 | disposition home health service (06) ==
LOC: CHSED 09:01 → CHS2ND 09:02
PROVIDERS: Admitting Provider Emergency Medicine; Emergency Provider Emergency Medicine; PCP Internal Medicine; Visit Provider Nurse Practitioner Family
DX: R41.0 Disorientation, unspecified (principal); R53.1 Weakness; S00.81XA Abrasion of other part of head, initial encounter; I48.20 Chronic atrial fibrillation, unspecified; I10 Essential (primary) hypertension; I25.10 Atherosclerotic heart disease of native coronary artery without angina pectoris; E11.42 Type 2 diabetes mellitus with diabetic polyneuropathy; E78.5 Hyperlipidemia, unspecified; M48.00 Spinal stenosis, site unspecified; M15.9 Polyosteoarthritis, unspecified; G62.9 Polyneuropathy, unspecified; F32.9 Major depressive disorder, single episode, unspecified; W19.XXXA Unspecified fall, initial encounter; Z90.49 Acquired absence of other specified parts of digestive tract; Z86.73 Personal history of transient ischemic attack (TIA), and cerebral infarction without residual deficits; Z96.659 Presence of unspecified artificial knee joint; Z95.5 Presence of coronary angioplasty implant and graft
CPT/HCPCS: 36415; 70450; 70486; 71045; 72125; 73030; 80053; 81003; 82948; 83880; 84484; 85025; 85027; 85610; 85730; 93005; 96360; 96361; 97161; 99285; A9270; G0378; J7030; J7040

== ENCOUNTER 2021-09-04 10:33 | Outpatient (CLI) | payer MEDICARE, SELFPAY ==
--- NOTE | ~2021-09-04 | XR_ITS ---
XR cervical spine 4-5V DATE: 09/04/2021 11:01 INDICATION: Degenerative disc disease. Surgery in July 2020 TECHNIQUE: AP, open-mouth, lateral, bilateral oblique views COMPARISON: 08/20/2021 CT cervical spine FINDINGS: Status post anterior and interbody surgical cervical spine fusion at C5-7. No fracture or dislocation or locked facet or prevertebral soft tissue swelling is evident. There is very prominent degenerative change at the apophyseal joints throughout the cervical spine an d at the uncovertebral joints in the mid and lower cervical spine. IMPRESSION: Status post anterior and interbody spinal fusion at C5-7 Extensive degenerative changes Reviewed, dictated and finalized at location A.
== END 2021-09-04 10:34 | disposition home or self-care (01) ==
PROVIDERS: PCP Internal Medicine
DX: M51.36 Other intervertebral disc degeneration, lumbar region (principal); Z98.1 Arthrodesis status
CPT/HCPCS: 72050

== ENCOUNTER 2021-10-09 21:50 | Inpatient (IN) | payer MEDICARE, SELFPAY ==
--- NOTE | ~2021-10-09 | CT_ITS ---
EXAMINATION: CT abdomen pelvis wo con EXAM DATE: 10/09/2021 23:38 INDICATION: gi bleeding TECHNIQUE: Spiral CT of the abdomen and pelvis was performed without contrast. Axial, coronal and s agittal images of the abdomen and pelvis were reviewed. The dose-length product (DLP) for this exami nation was 706.51 mGy-cm. The exposure was tailored according to patient size (auto mA exposure cont rol), and iterative reconstruction (ASIR) was used as additional dose reduction technique. There is no prior study for comparison. FINDINGS: The liver, spleen, adrenal glands and pancreas are unremarkable. Gallbladder not identifie d, patient likely has had cholecystectomy. There is no nephrolithiasis or hydronephrosis. There are multiple renal cysts bilaterally, largest on the left side measuring up to 8.7 cm. The prostate is unremarkable. The bladder is unremarkable. There is moderate to severe scattered arteriosclerotic d isease. There may be surgical changes from prior left inguinal hernia repair. There is high density fluid in the rectal vault, could be blood products given history provided. The stool proximal to this has lower density and appears more solid as would be expected. There could be thickening of the rectal wall, could be proctitis or anal cancer. There is nonspecific presacral brando a. There is a right inguinal lymph node which is pathologically enlarged measuring 2.0 x 1.5 cm. No p elvic or retroperitoneal lymphadenopathy. Mild scattered colonic diverticulosis. The appendix is not positively visualized. There is no pericecal inflammatory change to suggest appe ndicitis. The stomach and small bowel are unremarkable. No free intraperitoneal gas. The heart is normal in size. There are no pericardial or pleural effusions. There is mild basilar intralobula r septal thickening, probably mild chronic interstitial lung disease. There is lower thoracic diffuse idiopathic skeletal hyperostosis. There are no osteoblastic or osteolytic lesions identified. IMPRESSION: 1. High density fluid in rectal vault, could be blood. Possible distal rectal/anal wall edema, proct itis or cancer. 2. Single pathologically enlarged right inguinal lymph node, reactive versus metastatic. 3. Other chronic, surgical changes. Reviewed, dictated and finalized at location G. MANAGEMENT SUPERVISOR IMPRESSION: 1. High density fluid in rectal vault, could be blood. Possible distal rectal/ anal wall edema, proctitis or cancer. 2. Single pathologically enlarged right inguinal lymph node, reactive versus m etastatic. 3. Other chronic, surgical changes.
[2021-10-09 21:55] VITALS: BP 114/53; PULSE 80; RESP 18; TEMP 36.4; O2SAT 100
[2021-10-09 22:20] LABS: Basophils Percent Auto 0.5 % (0.2-1.2); Eosinophils Absolute Auto 0.1 K/mm3 (0-0.3); Eosinophils Percent Auto 2.2 % (0-4.4); Hematocrit 31.6 % (42.0-52.0); Hemoglobin 10.4 g/dL (14.0-18.0); Immature Granulocyte Absolute 0.02 K/mm3 (0.00-0.031); Immature Granulocyte Percent A 0.3 % (0-0.5); Lymphocytes Percent Auto 20.5 % (18.3-44.2); Mean Corpuscular HGB Conc 32.9 g/dl (32-36); Mean Corpuscular Hemoglobin 33.3 pg (26-34); Mean Corpuscular Volume 101.3 fl (80-100); Mean Platelet Volume 9.5 fl (7.4-10.4); Monocytes Absolute Auto 0.5 K/mm3 (0.1-0.6); Monocytes Percent Auto 7.1 % (2.6-8.5); Neutrophils Absolute Auto 4.4 K/mm3 (1.3-6.7); Neutrophils Percent Auto 69.4 % (45.5-73.1); Platelet Count Result 138 k/mm3 (150-375); Red Blood Count 3.12 M/mm3 (4.6-6.20); Red Cell Distribution Width 13.3 % (11.5-14.5); White Blood Count 6.3 K/mm3 (4.5-10.0)
[2021-10-09 22:29] LABS: INR 1.3; Prothrombin Time 15.6 Seconds (11.1-14.7)
[2021-10-09 22:30] LABS: Alanine Aminotransferase 16 U/L (4-50); Albumin Level 3.8 g/dL (3.5-5.1); Alkaline Phosphatase 53 U/L (38-126); Anion Gap 9 mmol/L (8-16); Aspartate Amino Transferase 26 U/L (17-59); Bilirubin,Total 0.4 mg/dL (0.2-1.3); Blood Urea Nitrogen 30 mg/dL (9-20); Calcium 9.1 mg/dL (8.4-10.2); Carbon Dioxide 24 mmol/L (22-30); Chloride 105 mmol/L (98-107); Estimated CRCL calculation 44 ml/min; Estimated Glomerular Filt Rate 58; Glucose 189 mg/dL (65-110); Partial Thromboplastin Time 29.7 SECONDS (22.3-36.8); Potassium 3.8 mmol/L (3.4-5.0); Sodium 138 mmol/L (137-145)
[2021-10-09 22:54] VITALS: PULSE 72; RESP 19; O2SAT 100
[2021-10-09 22:58] VITALS: BP 108/62; PULSE 86
[2021-10-09 22:59] VITALS: BP 112/64; PULSE 80
[2021-10-09 23:02] VITALS: BP 117/70; PULSE 84
[2021-10-09 23:17] VITALS: BP 137/69; PULSE 85; RESP 17; O2SAT 96
[2021-10-10] VITALS (9 sets, daily range): BP systolic 117–131; BP diastolic 61–85; PULSE 60–95; RESP 15–18; TEMP 36.1–36.9; O2SAT 94–100; BMI 26.3
--- NOTE | 2021-10-10 00:13 | ED.GENADULT ---
HPI - General Adult General Chief complaint: GI Bleed Stated complaint: Rectal bleeding Time Seen by Provider: 10/09/21 23:01 History of Present Illness HPI narrative: Patient 86-year-old gentleman who presents the emergency department with chief complaint of rectal bleeding. Patient reports that for about the last month he has noticed he had a little blood in his stool but this evening noticed that he started having blood mixed with the stool and had a large bloody bowel movement. Patient reports no syncopal episodes denies chest pain denies shortness of breath. Patient reports that he has had a history of hemorrhoids and reports that he is on Eliquis for atrial fibrillation. Related Data Home Medications Medication Instructions Recorded Confirmed Eliquis 5 mg PO DAILY 08/20/21 08/20/21 furosemide 20 mg PO DAILY 08/20/21 08/20/21 metformin 500 mg PO BID 08/20/21 08/20/21 metoprolol succinate 150 mg PO DAILY 08/20/21 08/20/21 rosuvastatin 10 mg PO DAILY 08/20/21 08/20/21 spironolactone 25 mg PO DAILY 08/20/21 08/20/21 Allergies Allergy/AdvReac Type Severity Reaction Status Date / Time amiodarone Allergy Rash Verified 10/09/21 23:17 iohexol Allergy Unknown Verified 10/09/21 23:17 [From contrast - CT, X-RAY] latex Allergy Unknown Verified 10/09/21 23:17 levofloxacin [From Levaquin] Allergy Unknown Verified 10/09/21 23:17 rosiglitazone [From Avandia] Allergy Unknown Verified 10/09/21 23:17 Sulfa (Sulfonamide Allergy Unknown Verified 10/09/21 23:17 Antibiotics) Review of Systems Review of Systems: A 10 system review of systems was completed on the patient and is negative except for what is stated in the HPI. Nursing and ancillary documentation was reviewed. [facility] Past Medical History Medical History Atrial fibrillation Coronary artery disease Depression Peripheral neuropathy Spinal stenosis Subdural hematoma Surgical History Surgical History History of appendectomy History of cholecystectomy History of coronary artery stent placement History of knee replacement Social History Social History Smoking status: Never smoker Alcohol intake: never Substance use: never Gender identity (if verbalized by the patient): Male Sexual Orientation (if Verbalized by the Patient): Straight or Heterosexual Spiritual care concerns: No Exam Narrative: GENERAL: Well-appearing, well-nourished, and in no acute distress. HEAD: Normocephalic, atraumatic. EYES: PERRLA and EOMI. ENT: Nares clear, no rhinorrhea or epistaxis. Mucous membranes moist. NECK: Supple. CHEST: Clear to auscultation. No respiratory distress. HEART: Regular rate and rhythm. No murmur heard. Normal peripheral pulses. ABDOMEN: Soft, nontender, nondistended, normal active bowel sounds. : Rectal exam as a palpable mass approximately 12 o'clock position. Stool is maroon-colored and guaiac positive EXTREMITIES: Normal range of motion. No edema. SKIN: Warm, dry, no rash. NEURO: No focal deficits. Alert and oriented x3. PSYCH: Normal mood and affect. Course Course Emergency Course: Hemoglobin is 10.4. Patient reports that he had a outpatient hemoglobin done recently that was in the [address] scan of the abdomen pelvis showed thickening of the rectal wall concerning for either proctitis or possible mass. Case was discussed with Dr. Gold of the GI service who will consult on the patient the patient was admitted to the hospitalist service. Vital Signs Vital signs: Vital Signs Temperature 36.4 C 10/09/21 21:55 Pulse Rate 80 10/09/21 21:55 Respiratory Rate 18 10/09/21 21:55 Blood Pressure 114/53 L 10/09/21 21:55 Pulse Oximetry 100 10/09/21 21:55 Temperature 36.4 C 10/09/21 21:55 Pulse Rate 85 10/09/21 23:17 Respirato
--- NOTE | 2021-10-10 00:43 | PM.IMHP ---
H&P: HPI History of Present Illness Date/Time: 10/10/21 00:43 Chief Complaint: Rectal bleed Narrative: This is an 86-year-old male with past medical history significant for atrial fibrillation anticoagulated, rate controlled, seasonal allergies, dyslipidemia, hypertension, congestive heart failure, coronary artery disease, peripheral neuropathy, spinal stenosis, subdural hematoma. Patient presented to the emergency room after he had a large red bright blood per rectum according to patient this has been going on on and off for the last month or so but to night before coming to the emergency room a was the worst episode with the blood mixed with stools, patient denies any syncope or near syncope or dizziness or lightheadedness, shortness of breath ,chest pain, leg swelling, palpitations, chest discomfort ,nausea, vomiting or diarrhea, no fevers ,no rigors ,no chills ,no cough ,no sputum production, denies any changes in stool character, had episode of constipation which resolved after the use of laxatives, his appetite has been good, no weight loss. Preliminary workup was significant for CT of abdomen and pelvis with rectal ball but findings and possible mass. Decision has been made to admit the patient for further assessment, evaluation and treatment. Review of Systems Review of Systems: Rectal bleeding Constitutional: Constitutional: Denies chills, Denies fatigue, Denies fever(s), Denies lethargy, Denies malaise, Denies poor appetite and Denies weakness Eyes: Eyes: Denies change in vision and Denies loss of vision ENT: Denies dysphagia, Denies vertigo, Denies dizziness, Denies nasal congestion, Denies nasal discharge and Denies odynophagia Cardiovascular: Cardiovascular: Denies chest pain with activity, Denies irregular heart rhythm, Denies claudication, Denies leg edema, Denies lightheadedness, Denies radiating jaw, neck or arm pain, Denies palpitations, Denies dyspnea, Denies dyspnea on exertion and Denies orthopnea Respiratory: Respiratory: Denies cough and Denies dyspnea Gastrointestinal: Gastrointestinal: Denies abdominal pain, Reports hematochezia, Denies change in bowel habits, Denies change in stool character, Denies dysphagia, Denies dyspepsia, Denies heartburn, Denies diarrhea, Denies nausea and Denies vomiting Genitourinary: Genitourinary: Reports other (Patient self catheterizes 5 times a day) Musculoskeletal: Musculoskeletal: Denies abnormal gait, Denies deformity, Denies arthralgias, Denies joint swelling and Denies muscle weakness Integumentary/Breasts: Skin/Breast: Denies rash Neurologic: Denies syncope, Denies focal weakness and Denies Sensory deficit (Neuro) Psychiatric: Psychiatric: Reports no additional psychiatric complaints and Reports as per HPI Endocrine: Endocrine: Reports no additional endocrine complaints and Reports as per HPI Hematologic/Lymphatic: Hematologic/Lymphatic: Reports no additional hematologic/lymphatic complaints and Reports as per HPI Allergic/Immunologic: Allergic/Immunologic: Reports no additional allergic/immunologic complaints and Reports as per HPI PMF Past Medical History Medical History (Updated 10/10/21 @ 03:32 by Natasha Fry MD) Atrial fibrillation Coronary artery disease Depression Peripheral neuropathy Spinal stenosis Subdural hematoma Surgical History Surgical History History of appendectomy History of cholecystectomy History of coronary artery stent placement History of knee replacement Family History Family History (Updated 10/10/21 @ 03:14 by Melvina Corral RN) Father Cerebrovascular accident Mother Cerebrovascular accident Mother Diabetes mellitus Sibling Acute myocardial infarction Sibling Lung cancer Social History Social History Smoking status: Never smoker Alcohol intake: never Substance use: never Gender
[2021-10-10 00:45] LABS: Hematocrit 31.4 % (42.0-52.0); Hemoglobin 10.2 g/dL (14.0-18.0)
--- NOTE | 2021-10-10 01:14 | ADMGEN ---
This patient, Jhon Ponce, was admitted to [facility] Surg Room 331-01. Patient/family oriented to hospital policies and general routines including ID bracelet, bed and alarms, visiting hours, pain management, procedures, bathroom and other care routines, personal items, smoking policy, room service/diet, and visiting hours. Information on how to activate the Rapid Response Team has been discussed. Patient/Family are encouraged to report perceived risks to care and to ask questions if they do not understand what they are told or what they should do.
[2021-10-10] MEDS: SODIUM CHLORIDE 0.9% IV 1,000 ML 125 ML IV CONT ×2 (02:45→11:30)
[2021-10-10 06:34] LABS: Hemoglobin 9.5 g/dL (14.0-18.0)
[2021-10-10 09:06] LABS: Glucose Point of Care 120 mg/dl (65-105)
[2021-10-10] MEDS: METOPROLOL SUCCINATE EXT REL 100 MG TABCR PO (09:33)
--- NOTE | 2021-10-10 10:33 | WPDGICN ---
Assessment and Plan Assessment and plan (1) Acute GI bleeding: Code(s): K92.2 - Gastrointestinal hemorrhage, unspecified Status: Acute Assessment and Plan: he has seen blood almost every day for the past few weeks and a couple days ago had a large amount of blood per rectum which was not only bright red but also some darker blood. He states that when he has had previous colonoscopies polyps were removed but he had never had rectal bleeding before. He will be scheduled for colonoscopy to be done tomorrow morning. I discussed the procedure with him including possible risks such as bleeding or perforation or the need for surgery in case of complications. I discussed the bowel prep. He is familiar with that having had several prior colonoscopies in [place] (2) Anemia: Code(s): D64.9 - Anemia, unspecified Status: Acute Assessment and Plan: it seems his blood counts run somewhat low but he has dropped from 10.4-9.5 overnight (3) Atrial fibrillation: Qualifiers: Atrial fibrillation type: unspecified Qualified Code(s): I48.91 - Unspecified atrial fibrillation Code(s): I48.91 - Unspecified atrial fibrillation Status: Acute Assessment and Plan: he has been on Eliquis because of atrial fibrillation. Until this rectal bleeding he had had no bleeding problems while on that GI Consult Note Consult date/time: 10/10/21 10:33 HPI: Jhon Ponce is a 86 year old male who has not seen blood in his stools for the past several weeks. At 1st he was he has small amount of red blood but in the last day or 2 he has past much more blood. It was right red at the beginning but would get darker after a while. He has had no abdominal pain. Denies nausea vomiting or fever. He has not had gastrointestinal bleeding in the past. His last colonoscopy was at [facility] about 4 years ago he had a polyp or 2 removed at that time. he states that occasionally he is constipated but usually not. He was not having diarrhea with his bleeding and has not had a fever Review of Systems Review of Systems: All systems reviewed & are unremarkable except as noted in HPI and below PMFSH Past Medical History Medical History Atrial fibrillation Coronary artery disease Depression Peripheral neuropathy Spinal stenosis Subdural hematoma Surgical History Surgical History History of appendectomy History of cholecystectomy History of coronary artery stent placement History of knee replacement Family History Family History Father Cerebrovascular accident Mother Cerebrovascular accident Mother Diabetes mellitus Sibling Acute myocardial infarction Sibling Lung cancer Social History Social History Smoking status: Never smoker Alcohol intake: former Substance use: never Gender identity (if verbalized by the patient): Male Sexual Orientation (if Verbalized by the Patient): Straight or Heterosexual Spiritual care concerns: No Meds Home Medications and Allergies Home Medications Medication Instructions Recorded Confirmed Type Eliquis 5 mg PO BID 08/20/21 10/10/21 History furosemide 20 mg PO DAILY 08/20/21 10/10/21 History metoprolol succinate 150 mg PO DAILY 08/20/21 10/10/21 History rosuvastatin 10 mg PO HS 08/20/21 10/10/21 History spironolactone 25 mg PO DAILY 08/20/21 10/10/21 History loratadine [Allergy Relief 10 mg PO DAILY 10/10/21 10/10/21 History (loratadine)] Allergies Allergy/AdvReac Type Severity Reaction Status Date / Time amiodarone Allergy Rash Verified 10/09/21 23:17 iohexol Allergy Unknown Verified 10/09/21 23:17 [From contrast - CT, X-RAY] latex Allergy Unknown Verified 10/09/21 23:17 levofloxacin [From
[2021-10-10 12:48] LABS: Hematocrit 29.5 % (42.0-52.0); Hemoglobin 9.7 g/dL (14.0-18.0)
--- NOTE | 2021-10-10 12:48 | PM.IMPN ---
Progress Note: A&P Assessment and Plan (1) Acute GI bleeding: Code(s): K92.2 - Gastrointestinal hemorrhage, unspecified Status: Acute Assessment and Plan: No further symptoms since being admitted -hgb stable but trending down -pt has no cp, PINZON, or lightheadedness with this -gi consulted, plan for a colonoscopy tomorrow (2) Spinal stenosis: Code(s): M48.00 - Spinal stenosis, site unspecified Status: Acute Assessment and Plan: Unchanged Tylenol as needed (3) Peripheral neuropathy: Code(s): G62.9 - Polyneuropathy, unspecified Status: Acute Assessment and Plan: chronic (4) Subdural hematoma: Code(s): S06.5X9A - Traumatic subdural hemorrhage with loss of consciousness of unspecified duration, initial encounter Status: Acute Assessment and Plan: hx of this -CT 08/20/21 without evidence of hematoma but does show old infarct. (5) Coronary artery disease: Code(s): I25.10 - Atherosclerotic heart disease of [place] coronary artery without angina pectoris Status: Acute Assessment and Plan: No CP -eliquis on hold -continue metoprolol (6) Atrial fibrillation: Qualifiers: Atrial fibrillation type: unspecified Qualified Code(s): I48.91 - Unspecified atrial fibrillation Code(s): I48.91 - Unspecified atrial fibrillation Status: Acute Assessment and Plan: Continue metoprolol -hold eliquis (7) History of urinary self-catheterization: Code(s): Z78.9 - Other specified health status Status: Acute Assessment and Plan: Pt usually self caths -he has a oseguera while he is here (8) UTI (urinary tract infection): Code(s): N39.0 - Urinary tract infection, site not specified Status: Acute Assessment and Plan: Pt is currently being treated for UTI per pcp -continue oral cipro Time Spent With Patient Time with patient: 25 - 35 minutes Subjective Date/time seen: 10/10/21 12:48 Interval history: Pt is a 86 y/o male here for rectal bleeding. patient was seen today and states he is feeling okay. He has not had any bowel movements or blood per rectum since being in the hospital. He denies lightheadedness, dizziness, Chest pain, shortness of breath or weakness. he currently has a catheter in states it is because he usually self caths at home but while in the hospital he would wanted a Oseguera catheter. Daughter called and said he is being treated for a UTI with cipro. He has had 3 doses so far. pt states he has neuropathy, has chronic leg swelling, and pain. he usually sleeps with his feet up. Review of Systems Review of Systems: All systems reviewed & are unremarkable except as noted in HPI and below Exam Narrative: General: Well developed well nourished patient in NAD HEENT: normocephalic Neck: supple Neuro: Alert and oriented x4 CV:irregularly irregular Resp:CTA Abd: Soft, non distended. No pain to palpation. Positive bowel sounds Extremities: slight swelling and pain to palpation to the LE (chronic for him) Objective Data Vital Signs Vital Signs: Vital Signs - 24 hr 10/09/21 21:55 10/09/21 22:54 10/09/21 22:58 Temperature 97.6 F Pulse Rate 80 72 86 Respiratory Rate 18 19 Blood Pressure 114/53 L 108/62 Pulse Oximetry 100 100 10/09/21 22:59 10/09/21 23:02 10/09/21 23:17 Temperature Pulse Rate 80 84 85 Respiratory Rate 17 Blood Pressure 112/64 117/70 137/69 Pulse Oximetry 96 10/10/21 00:24 10/10/21 01:02 10/10/21 01:10 Temperature 98.1 F 97.0 F L Pulse Rate 71 68 95 Respiratory Rate 15 15 18 Blood Pressure 126/85 125/69 124/64 Pulse Oximetry 94 100 100 10/10/21 06:00 10/10/21 09:33 Temperature 97.4 F L Pulse Rate 89 76 Respiratory Rate 16 Blood Pressure 118/70 Pulse Oximetry 99 Intake/Output Intake/Output: Intake & Output 10/07/21 10/08/21 10/09/21 10/10/21 2
[2021-10-10] MEDS: polyethylene glycoL 3350 238 GM BOTTLE PO (13:32)
--- NOTE | 2021-10-10 15:47 | PC.NURSE ---
On 10/10/21, the student, Blanche Monge, provided care and completed [facility] hospital documentation on this patient. I have reviewed the student's documentation and agree with the findings.
[2021-10-10] MEDS: BISACODYL 5 MG TABLET EC 10 MG PO ×2 (15:53→21:31)
[2021-10-10] MEDS: CIPROFLOXACIN 500 MG TAB PO ×2 (15:53→21:27)
--- NOTE | 2021-10-10 17:07 | WPDANESEPP ---
Anes - Eval Pre Procedure Procedure: Operation Date: 10/11/21 14:00 Proposed Procedures p Colonoscopy - Hany Gold MD Date/Time: 10/10/21 17:07 Surgeon: Asif Pre Op Diagnosis: GI Bleed Patient Data Age: 86 Gender: M Height: 1.83 m Weight: 88 kg Last Vital Signs Temp 98.1 F 10/10/21 14:50 Pulse 75 10/10/21 14:50 Resp 16 10/10/21 14:50 BP 117/74 10/10/21 14:50 Pulse Ox 100 10/10/21 14:50 Allergies Allergy/AdvReac Type Severity Reaction Status Date / Time amiodarone Allergy Rash Verified 10/09/21 23:17 iohexol Allergy Unknown Verified 10/09/21 23:17 [From contrast - CT, X-RAY] latex Allergy Unknown Verified 10/09/21 23:17 levofloxacin [From Levaquin] Allergy Unknown Verified 10/09/21 23:17 rosiglitazone [From Avandia] Allergy Unknown Verified 10/09/21 23:17 Sulfa (Sulfonamide Allergy Unknown Verified 10/09/21 23:17 Antibiotics) Home Medications Medication Instructions Recorded Confirmed Type Eliquis 5 mg PO BID 08/20/21 10/10/21 History furosemide 20 mg PO DAILY 08/20/21 10/10/21 History metoprolol succinate 150 mg PO DAILY 08/20/21 10/10/21 History rosuvastatin 10 mg PO HS 08/20/21 10/10/21 History spironolactone 25 mg PO DAILY 08/20/21 10/10/21 History ciprofloxacin HCl [Cipro] 500 mg PO Q12H 10/10/21 10/10/21 History loratadine [Allergy Relief 10 mg PO DAILY 10/10/21 10/10/21 History (loratadine)] Laboratory Tests 10/09/21 10/09/21 10/09/21 22:12 22:12 22:12 WBC 6.3 K/mm3 K/mm3 (4.5-10.0) RBC 3.12 M/mm3 L M/mm3 (4.6-6.20) Hgb 10.4 g/dL L g/dL (14.0-18.0) Hct 31.6 % L % (42.0-52.0) MCV 101.3 fl H fl (80-100) MCH 33.3 pg pg (26-34) MCHC 32.9 g/dl g/dl (32-36) RDW 13.3 % % (11.5-14.5) Plt Count 138 k/mm3 L k/mm3 (150-375) MPV 9.5 fl fl (7.4-10.4) Immature Gran % (Auto) 0.3 % % (0-0.5) Neut % (Auto) 69.4 % % (45.5-73.1) Lymph % (Auto) 20.5 % % (18.3-44.2) [place]aney % (Auto) 7.1 % % (2.6-8.5) Eos % (Auto) 2.2 % % (0-4.4) Baso % (Auto) 0.5 % % (0.2-1.2) Lymph # (Auto) 1.30 K/mm3 K/mm3 (0.9-3.2) [place] # (Auto) 0.5 K/mm3 K/mm3 (0.1-0.6) Eos # (Auto) 0.1 K/mm3 K/mm3 (0-0.3) Baso # (Auto) 0.0 K/mm3 K/mm3 (0.0-0.1) Abs Immat Gran (auto) 0.02 K/mm3 K/mm3 (0.00-0.031) Absolute Neuts (auto) 4.4 K/mm3 K/mm3 (1.3-6.7) Absolute Nucleated RBC 0.0 K/mm3 K/mm3 (0.0-0.012) Nucleated RBC % 0.0 % % (0.0-0.2) PT 15.6 Seconds H Seconds (11.1-14.7) INR 1.3 APTT 29.7 SECONDS SECONDS (22.3-36.8) Sodium 138 mmol/L mmol/L (137-145) Potassium 3.8 mmol/L mmol/L (3.4-5.0) Chloride 105 mmol/L mmol/L (98-107) Carbon Dioxide 24 mmol/L mmol/L (22-30) Anion Gap 9 mmol/L mmol/L (8-16) BUN 30 mg/dL H mg/dL (9-20) Creatinine 1.20 mg/dL mg/dL (0.7-1.3) Estim Creat Clear Calc 44 ml/min ml/min Estimated GFR 58 L (59 - ) Glucose 189 mg/dL H mg/dL (65-110) POC Capillary Glucose Calcium 9.1 mg/dL mg/dL (8.4-10.2) Total Bilirubin 0.4 mg/dL mg/dL (0.2-1.3) AST 26 U/L U/L (17-59) ALT 16 U/L U/L (4-50) Alkaline Phosphatase 53 U/L U/L (38-126) Total Protein 7.0 g/dL g/dL (6.3-8.2) Albumin 3.8 g/dL g/dL (3.5-5.1) Blood Type Antibody Screen 10/09/21 10/10/21 10/10/21 22:12 00:37 05:26 WBC RBC Hgb 10.2 g/dL L g/dL 9.5 g/dL L g/dL (14.0-18.0) (14.0-18.0) Hct 31.4 % L % 29.0 % L % (42.0-52.0) (42.0-52.0) MCV MCH MCHC RDW Plt Count MPV
[2021-10-10 19:24] LABS: Hematocrit 34.4 % (42.0-52.0); Hemoglobin 11.3 g/dL (14.0-18.0)
[2021-10-11] VITALS (10 sets, daily range): BP systolic 90–125; BP diastolic 36–70; PULSE 64–91; RESP 16–33; TEMP 36–36.3; O2SAT 99–100
[2021-10-11 07:01] LABS: Hematocrit 30.5 % (42.0-52.0); Hemoglobin 9.9 g/dL (14.0-18.0)
[2021-10-11 07:14] LABS: Anion Gap 6 mmol/L (8-16); Blood Urea Nitrogen 15 mg/dL (9-20); Carbon Dioxide 23 mmol/L (22-30); Chloride 109 mmol/L (98-107); Estimated CRCL calculation 58 ml/min; Estimated Glomerular Filt Rate > 60; Glucose 119 mg/dL (65-110); Potassium 3.4 mmol/L (3.4-5.0); Sodium 138 mmol/L (137-145)
--- NOTE | 2021-10-11 08:42 | WPDANESEFPP ---
Anes - Eval Final PreProcedure Day of Procedure 10/11/21 08:42 Patient weight: overweight Heart: regular rate and rhythm Lungs: clear to auscultation and normal air movement Airway: Mallampati scale class II Neurological: alert and oriented Last oral intake: >/= 8 hours ASA classification: III Emergent: no Anesthetic plan: proceed Anesthesia type and monitoring: general GIVS Results Review: All pre-operative results and documents have been reviewed as part of the pre-operative evaluation. Informed Consent: The patient's anesthetic plan and its attendant risks and benefits were discussed with the patient/family/POA. Questions were solicited and answers provided to the satisfaction of the patient/family/POA.
[2021-10-11] MEDS: METOPROLOL SUCCINATE EXT REL 100 MG TABCR PO (09:45)
[2021-10-11] MEDS: CIPROFLOXACIN 500 MG TAB PO ×2 (09:45→20:30)
[2021-10-11] MEDS: SODIUM CHLORIDE 0.9% IV 1,000 ML 50 ML IV CONT (09:49)
[2021-10-11] MEDS: LACTATED RINGERS 1,000 ML 150 ML IV CONT (12:59)
--- NOTE | 2021-10-11 15:44 | PM.IMPN ---
Progress Note: A&P Assessment and Plan (1) Rectal mass: Code(s): K62.89 - Other specified diseases of anus and rectum Status: Acute Assessment and Plan: Colonoscopy shows a malignant-appearing anal mass which is likely the cause of his bleeding -Dr. Gold spoke with his tubular splitting machine tender about his anticoagulation and they want him to try to continue this if his bleeding is controlled -will restart Eliquis tomorrow as well as iron -he will need to follow up with a colorectal surgeon (2) Acute GI bleeding: Code(s): K92.2 - Gastrointestinal hemorrhage, unspecified Status: Acute Assessment and Plan: Due to above -hgb stable but trending down -pt has no cp, PINZON, or lightheadedness with this (3) Spinal stenosis: Code(s): M48.00 - Spinal stenosis, site unspecified Status: Acute Assessment and Plan: Unchanged Tylenol as needed (4) Peripheral neuropathy: Code(s): G62.9 - Polyneuropathy, unspecified Status: Acute Assessment and Plan: chronic (5) Subdural hematoma: Code(s): S06.5X9A - Traumatic subdural hemorrhage with loss of consciousness of unspecified duration, initial encounter Status: Acute Assessment and Plan: hx of this -CT 08/20/21 without evidence of hematoma but does show old infarct. (6) Coronary artery disease: Code(s): I25.10 - Atherosclerotic heart disease of [place] coronary artery without angina pectoris Status: Acute Assessment and Plan: No CP -continue metoprolol -will restart his diuretics as he has 1+ pitting edema to the lower extremities (7) Atrial fibrillation: Qualifiers: Atrial fibrillation type: unspecified Qualified Code(s): I48.91 - Unspecified atrial fibrillation Code(s): I48.91 - Unspecified atrial fibrillation Status: Acute Assessment and Plan: Continue metoprolol -Eliquis restarted tomorrow (8) History of urinary self-catheterization: Code(s): Z78.9 - Other specified health status Status: Acute Assessment and Plan: Pt usually self caths -he has a oseguera while he is here (9) UTI (urinary tract infection): Code(s): N39.0 - Urinary tract infection, site not specified Status: Acute Assessment and Plan: Pt is currently being treated for UTI per pcp -continue oral cipro Subjective Date/time seen: 10/11/21 15:44 Interval history: Pt is a 86 y/o male here for rectal bleeding/mass. Patient was seen today and states he feels okay. He has no lightheadedness, dizziness, chest pain or shortness of breath. He has noticed that his legs are swelling a little bit more and is likely due to missing his diuretics and that he usually keeps his legs very elevated at night. Exam Narrative: General: Well developed well nourished patient in NAD HEENT: normocephalic Neck: supple Neuro: Alert and oriented x4 CV:irregularly irregular Resp:CTA Abd: Soft, non distended. No pain to palpation. Positive bowel sounds Extremities: 1+ pitting edema up to the knees. No pain to palpation or erythema. Objective Data Vital Signs Vital Signs: Vital Signs - 24 hr 10/10/21 20:00 10/10/21 21:22 10/10/21 22:00 Temperature 98.4 F Pulse Rate 60 75 60 Respiratory Rate 16 18 16 Blood Pressure 131/61 Pulse Oximetry 100 99 100 10/11/21 06:00 10/11/21 09:45 10/11/21 12:54 Temperature 97.1 F L 97.4 F L Pulse Rate 91 64 77 Respiratory Rate 18 18 Blood Pressure 125/57 L 125/70 Pulse Oximetry 100 10/11/21 13:55 10/11/21 14:05 10/11/21 14:15 Temperature Pulse Rate 70 79 74 Respiratory Rate 33 H 31 H 28 H Blood Pressure 90/36 L 98/50 L 101/45 L Pulse Oximetry 100 100 100 10/11/21 14:25 Temperature Pulse Rate 71 Respiratory Rate 20 Blood Pressure 105/46 L Pulse Oximetry 100 Intake/Output Intake/Output: Intake & Output 10/08/21 10/09/21 10/10/21
[2021-10-11] MEDS: FUROSEMIDE 40 MG TABLET PO (16:35)
[2021-10-11] MEDS: SPIRONOLACTONE 25 MG TABLET PO (18:23)
[2021-10-11] MEDS: APIXABAN 5 MG TABLET PO (20:30)
[2021-10-12 05:55] VITALS: BP 102/55; PULSE 79; RESP 18; TEMP 36.6; O2SAT 97
[2021-10-12 06:23] LABS: Hematocrit 30.9 % (42.0-52.0); Hemoglobin 10.1 g/dL (14.0-18.0)
[2021-10-12 06:27] LABS: Anion Gap 7 mmol/L (8-16); Blood Urea Nitrogen 14 mg/dL (9-20); Calcium 9.2 mg/dL (8.4-10.2); Carbon Dioxide 24 mmol/L (22-30); Chloride 109 mmol/L (98-107); Estimated CRCL calculation 58 ml/min; Estimated Glomerular Filt Rate > 60; Glucose 150 mg/dL (65-110); Potassium 3.4 mmol/L (3.4-5.0); Sodium 140 mmol/L (137-145)
--- NOTE | 2021-10-12 07:04 | WPDGIPROGNO ---
Progress Note: A&P Assessment and Plan (1) Rectal mass: Code(s): K62.89 - Other specified diseases of anus and rectum Status: Acute Assessment and Plan: I called and spoke with his internal combustion engine assembler in [place]. He he would prefer that the patient stay on Eliquis post he does not start bleeding again. There is a colorectal surgeon in [facility]. I gave the patient the name of Dr. Viktor Wills, . The patient states that since his last colonoscopy he has had a tendency to have seepage of stool. He has developed a habit of putting a small what of toilet tissue into his anus, which she calls a bullet and wonders if perhaps this has caused some erosion and the lesion that we are seen. Certainly that is a possibility as my 1st impression was that this was a ulceration with edema. However when I took biopsies it was rather firm and friable. At any rate he will need to see a colorectal surgeon for treatment (2) Acute GI bleeding: Code(s): K92.2 - Gastrointestinal hemorrhage, unspecified Status: Acute Assessment and Plan: his counts are stable. From my perspective he can be discharged Subjective Date/time seen: 10/12/21 07:04 He has not seen any blood in his stools since the colonoscopy. He ate dinner last night and had a bowel movement early this morning with just soft brown stool Review of Systems Review of Systems: All systems reviewed & are unremarkable except as noted in HPI and below Exam Const: General: cooperative and no acute distress Nutritional Appearance: average body habitus GI: Inspection: normal to inspection GI Palp: No abdominal tenderness Auscultation: normal bowel sounds Objective Data Vital Signs Vital Signs: Vital Signs - 24 hr 10/11/21 09:45 10/11/21 12:54 10/11/21 13:55 Temperature 36.3 C L Pulse Rate 64 77 70 Respiratory Rate 18 33 H Blood Pressure 125/70 90/36 L Pulse Oximetry 100 10/11/21 14:05 10/11/21 14:15 10/11/21 14:25 Temperature Pulse Rate 79 74 71 Respiratory Rate 31 H 28 H 20 Blood Pressure 98/50 L 101/45 L 105/46 L Pulse Oximetry 100 100 100 10/11/21 14:40 10/11/21 21:51 10/11/21 21:56 Temperature 36.0 C L 36.3 C L Pulse Rate 76 69 Respiratory Rate 16 18 Blood Pressure 124/67 98/52 L Pulse Oximetry 99 100 99 10/12/21 05:55 Temperature 36.6 C Pulse Rate 79 Respiratory Rate 18 Blood Pressure 102/55 L Pulse Oximetry 97 Intake/Output Intake/Output: Intake & Output 10/09/21 10/10/21 10/11/21 10/12/21 23:59 23:59 23:59 23:59 Intake Total 3680 2371 750 Output Total 1100 1600 1600 Balance 2580 771 -850 Meds/Results Medications: Active Medications Generic Name Dose Route Start Last Admin Trade Name Freq PRN Reason Stop Dose Admin Apixaban 5 mg 10/11/21 21:00 10/11/21 20:30 Apixaban 5 Mg Tablet PO 5 mg Q12HR MALVIN Administration Ciprofloxacin 500 mg 10/10/21 12:45 10/11/21 20:30 Ciprofloxacin 500 Mg Tab PO 500 mg Q12HR MALVIN Administration Ferrous Sulfate 324 mg 10/12/21 08:00 Ferrous Sulfate 324 Mg Tablet PO DAILY@0800 MALVIN Furosemide 20 mg 10/12/21 09:00 Furosemide 20 Mg Tablet PO DAILY MALVIN Metoprolol Succinate 100 mg 10/10/21 09:00 10/11/21 09:45 Metoprolol Succinate Ext Rel 100 Mg Tabcr PO 100 mg DAILY MALVIN Administration Ondansetron HCl 4 mg 10/10/21 00:15 Ondansetron Inj 4 Mg/2 Ml Vial IV PUSH Q4H PRN Nausea Spironolactone 25 mg 10/11/21 15:05 10/11/21 18:23 Spironolactone 25 Mg Tablet PO 25 mg DAILY MALVIN Administration Radiology Results: ITS Impressions Abdomen/Pelvis CT 10/09/21 23:54 IMPRESSION: 1. High density fluid in rectal vault, could be blood. Possible distal rectal/anal wall edema, proctitis or cancer. 2. Single pathologically enlarged right inguinal lymph node, reactive versus metastatic. 3. Other chronic, surgical changes. Labs Labs: Laborator
[2021-10-12 07:31] LABS: Hemoglobin A1C 6.3 % (<5.7)
[2021-10-12 08:29] VITALS: PULSE 78
[2021-10-12] MEDS: METOPROLOL SUCCINATE EXT REL 100 MG TABCR PO (08:29)
[2021-10-12] MEDS: CIPROFLOXACIN 500 MG TAB PO (08:29)
[2021-10-12] MEDS: APIXABAN 5 MG TABLET PO (08:30)
[2021-10-12] MEDS: FERROUS SULFATE 324 MG TABLET PO (08:30)
[2021-10-12] MEDS: SPIRONOLACTONE 25 MG TABLET PO (08:30)
--- NOTE | 2021-10-12 11:47 | PM.DS ---
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 I spoke with the patient and daughter about the plan of care. A little blood on the stool is okay but he continues to have a large amount of blood loss, this will need to be discontinued. (3) Spinal stenosis: Code(s): M48.00 - Spinal stenosis, site unspecified Status: Acute Assessment and Plan: Unchanged (4) Peripheral neuropathy: Code(s): G62.9 - Polyneuropathy, unspecified Status: Acute Assessment and Plan: chronic (5) Subdural hematoma: Code(s): S06.5X9A - Traumatic subdural hemorrhage with loss of consciousness of unspecified duration, initial encounter Status: Acute Assessment and Plan: hx of this per EMR -CT 08/20/21 without evidence of hematoma but does show old infarct. (6) Coronary artery disease: Code(s): I25.10 - Atherosclerotic heart disease of [place] coronary artery without angina pectoris Status: Acute Assessment and Plan: No CP -continue metoprolol, Lasix and spironolactone -patient's blood pressure has been on the lower side which patient states is normal. Daughter does not want adjustments in the medications until they talk to their crusher.. Since he is asymptomatic, I agree with this. (7) Atrial fibrillation: Qualifiers: Atrial fibrillation type: unspecified Qualified Code(s): I48.91 - Unspecified atrial fibrillation Code(s): I48.91 - Unspecified atrial fibrillation Status: Acute Assessment and Plan: Continue metoprolol -continue Eliquis -plan for repeat H&H in 1 week (8) History of urinary self-catheterization: Code(s): Z78.9 - Other specified health status Status: Acute Assessment and Plan: Pt usually self caths -he had a oseguera while he was here (9) UTI (urinary tract infection): Code(s): N39.0 - Urinary tract infection, site not specified Status: Acute Assessment and Plan: Pt is currently being treated for UTI per pcp -continue oral cipro at discharge DS: Summary Hospital Course Hospital Course: DOS 10/12/21 Patient is an 86-year-old male with a history AFib who presented emergency room for rectal bleeding. Vitals in the ER were temperature 36.4? C, pulse 80, respiratory rate 18, blood pressure 114/53, pulse ox 100 room air. Initial hemoglobin 10.4, hematocrit 31.6. INR 1.3. CT of the abdomen pelvis showed high-density fluid in the rectal vault which is likely blood but also shows edema which could be proctitis or cancer. There is a single pathologically enlarged right inguinal lymph node which could be reactive versus metastatic. Patient was admitted to the hospitalist service and underwent a colonoscopy which revealed a malignant-appearing mass, rectal polyps, and diverticulosis without perforation or abscess. The mass was biopsied age which revealed invasive squamous cell carcinoma. GI spoke with the patient's crusher who wanted to continue the Eliquis as long as the patient does not have significant bleeding. His hemoglobin remained stable and was 10.1 at discharge without any transfusions. He was asymptomatic and denied chest pain, dyspnea on exertion or lightheadedness. He was to
[2021-10-12] MEDS: FUROSEMIDE 20 MG TABLET PO (12:27)
--- NOTE | 2021-10-15 05:54 | WPDCDIQUERY2 ---
CDI Query Clarification Request 10/11 path report final diagnosis: anal mass bx: invasive squamous cell carcinoma and rectal polyp bx: invasive squamous cell carcinoma Please include pathology findings/diagnosis in discharge summary. Thanks
== END 2021-10-12 14:05 | disposition home health service (06) | DRG 375 ==
LOC: ANHED 10-10 00:15 → ANH3MEDSUR 10-10 00:52
PROVIDERS: Emergency Medicine; Internal Medicine Gastroenterology; Physician Assistant; Admitting Provider Internal Medicine; Emergency Provider Emergency Medicine; PCP Internal Medicine; Visit Provider Internal Medicine
PROC: 0DJD8ZZ Inspection of Lower Intestinal Tract, Via Natural or Artificial Opening Endoscopic (ICD-10-PCS; CPT 45378; principal; 2021-10-11 14:00)
DX: C20 Malignant neoplasm of rectum (principal); N39.0 Urinary tract infection, site not specified; C21.1 Malignant neoplasm of anal canal; K62.5 Hemorrhage of anus and rectum; Z23 Encounter for immunization; D12.8 Benign neoplasm of rectum; K57.30 Diverticulosis of large intestine without perforation or abscess without bleeding; M48.00 Spinal stenosis, site unspecified; G62.9 Polyneuropathy, unspecified; I25.10 Atherosclerotic heart disease of native coronary artery without angina pectoris; I48.91 Unspecified atrial fibrillation; I95.9 Hypotension, unspecified; F32.A Depression, unspecified; Z96.659 Presence of unspecified artificial knee joint; Z79.01 Long term (current) use of anticoagulants; Z90.49 Acquired absence of other specified parts of digestive tract; Z95.5 Presence of coronary angioplasty implant and graft
CPT/HCPCS: 36415; 74176; 80048; 80053; 82948; 83036; 85014; 85018; 85025; 85610; 85730; 86850; 86900; 86901; 88305; 90471; 90653; 96360; 96361; 97161; 97165; 99285; A9270; G0008; G0378; J2704; J7030; J7120

== ENCOUNTER 2021-10-19 12:16 | Outpatient (CLI) | payer MEDICARE, SELFPAY ==
[2021-10-19 12:32] LABS: Hematocrit 33.8 % (37.0-46.0); Hemoglobin 10.9 g/dL (12.4-15.3)
== END 2021-10-19 12:17 | disposition home or self-care (01) ==
LOC: CHSLAB 12:18
PROVIDERS: PCP Internal Medicine; Visit Provider Physician Assistant
DX: K92.2 Gastrointestinal hemorrhage, unspecified (principal)
CPT/HCPCS: 36415; 85014; 85018

== ENCOUNTER 2021-11-14 18:02 | Outpatient (CLI) | payer MEDICARE, SELFPAY ==
--- NOTE | ~2021-11-14 | XR_ITS ---
EXAMINATION: XR chest 2V 11/14/2021 18:36 INDICATION: Cough PROCEDURE: PA and lateral views of the chest COMPARISON: Comparison to multiple prior studies sequentially, with oldest reviewed study dated 05/13. FINDINGS: The lungs are clear. There is chronic elevation of the left diaphragm. There is atheroscler osis and ectasia of the aorta. The cardiomediastinal silhouette is within normal limits. There are n o pleural effusions. There is no pneumothorax suspected. IMPRESSION: 1: NO ACUTE CARDIOPULMONARY DISEASE. Reviewed, dictated and finalized at location A. K CHECKERER
== END 2021-11-14 18:03 | disposition home or self-care (01) ==
LOC: CHSIMG 18:03
PROVIDERS: PCP Internal Medicine; Visit Provider Internal Medicine
DX: R05.9 Cough, unspecified (principal)
CPT/HCPCS: 71046

== ENCOUNTER 2022-02-18 14:18 | Outpatient (CLI) | payer MEDICARE, SELFPAY ==
--- NOTE | ~2022-02-18 | XR_ITS ---
EXAMINATION: XR chest 2V 02/18/2022 15:18 INDICATION: Neck pain PROCEDURE: Chest pain COMPARISON: 2 view chest FINDINGS: The lungs are clear. The cardiomediastinal silhouette is within normal limits. There are no pleural effusions. There is no pneumothorax suspected. Chronic elevation of the left diaphragm. Chronic right basilar atelectasis/scarring. IMPRESSION: 1: NO ACUTE CARDIOPULMONARY DISEASE. Reviewed, dictated and finalized at location A.
--- NOTE | ~2022-02-18 | XR_ITS ---
EXAMINATION:XR_[id number]_CR DATE: 02/18/2022 15:17 INDICATION: Neck pain TECHNIQUE: AP, lateral and open-mouth and submental odontoid views of the cervical spine are provided . COMPARISON: Radiograph dated 09/04/[address] dated 08/20/2021 FINDINGS: C5-C7 anterior spinal fusion with anterior plate and screw fixation. There is solid osseous fusion ac ross the C5-C6 disc space. No significant residual lucency at the posterior two thirds of the C6-C7 d isc space with mild cystic change along the posterior inferior endplate of C6. Alignment is normal. O dontoid is intact. Normal atlantoaxial interval. Vertebral body heights are normal. Mild disc height loss with osseous bridging at the periphery of the C3-C4 disc space. Prominent nearly bridging anter ior osteophyte at C4-C5. 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 Prev ertebral soft tissues are normal. IMPRESSION: 1. C5-C7 anterior spinal fusion with anterior plate-screw fixation. 2. Moderate cervical spondylosis. Reviewed, dictated and finalized at location A.
[2022-02-18 15:00] LABS: Basophils Absolute Auto 0.03 K/mm3 (0.00-0.10); Basophils Percent Auto 0.4 % (0.0-1.0); Eosinophils Absolute Auto 0.18 K/mm3 (0.02-0.50); Eosinophils Percent Auto 2.4 % (1.0-6.0); Hematocrit 33.9 % (37.0-46.0); Immature Granulocyte Absolute 0.04 K/mm3 (0.00-0.00); Immature Granulocyte Percent A 0.5 % (0.0-0.0); Lymphocytes Percent Auto 18.5 % (18.0-42.0); Mean Corpuscular HGB Conc 32.4 g/dL (32.0-36.0); Mean Corpuscular Hemoglobin 32.6 pg (27.0-31.0); Mean Corpuscular Volume 100.6 fL (78.0-102.0); Mean Platelet Volume 9.5 fl (8.7-11.0); Monocytes Absolute Auto 0.47 K/mm3 (0.10-0.90); Monocytes Percent Auto 6.2 % (2.0-11.0); Neutrophils Absolute Auto 5.4 K/mm3 (1.7-7.2); Platelet Count Result 151 K/mm3 (150-420); Red Blood Count 3.37 M/mm3 (4.70-6.10); Red Cell Distribution Width 14.1 % (11.6-14.4); White Blood Count 7.6 K/mm3 (4.8-10.8)
[2022-02-18 15:17] LABS: Add Urine Microscopic? YES; Appearance Urine Clear (Clear); Bilirubin Urine Negative (Negative); Blood Urine Negative (Negative); Color Urine Light Yellow (Yellow); Glucose Urine UA Negative (Negative); Ketones Urine Negative (Negative); Leukocyte Esterase Ur Trace LEU/UL (Negative); Nitrate Urine Negative (Negative); Protein Urine Negative (Negative); Specific Grav Ur <= 1.005 (1.010-1.020); Urobilinogen Urine 0.2 mg/dL (0.2-1.0); pH Urine 5.5 (5.0-8.0)
[2022-02-18 15:33] LABS: Bacteria Urine None seen /hpf; RBC Urine 0-2 /hpf (0-2); Squamous Epithelial Cell Urine None seen /hpf (Few); WBC Urine 0-3 /hpf (0-3)
[2022-02-18 15:35] LABS: Hemoglobin A1C 7.5 % (<5.7)
[2022-02-18 16:00] LABS: Alanine Aminotransferase 14 U/L (16-63); Albumin Level 3.4 g/dL (3.4-5.0); Alkaline Phosphatase 62 U/L (46-116); Anion Gap 8 mmol/L (8-16); Aspartate Amino Transferase 18 U/L (15-37); Bilirubin,Total 0.4 mg/dL (0.00-1.00); Blood Urea Nitrogen 18 mg/dL (7-18); Calcium 8.9 mg/dL (8.5-10.1); Carbon Dioxide 28 mmol/L (21-32); Chloride 101 mmol/L (98-108); Estimated Glomerular Filt Rate 55; Free T3 1.97 pg/mL (2.18-3.98); Free T4 Free Thyroxine 0.85 ng/dL (0.76-1.46); Glucose 156 mg/dL (70-99); NT Pro B Type Natriuretic Pept 1350 pg/mL (0-450); Osmolality Calculated 288 mOsm/kg (285-295); Potassium 3.8 mmol/L (3.5-5.1); Sodium 137 mmol/L (136-145); Thyroid Stimulating Hormone 2.65 uIU/mL (0.36-3.74); Total Protein 6.4 g/dL (6.4-8.2)
== END 2022-02-18 14:19 | disposition home or self-care (01) ==
LOC: CHSIMG 14:21
PROVIDERS: PCP Internal Medicine; Visit Provider Internal Medicine
DX: E11.9 Type 2 diabetes mellitus without complications (principal); I10 Essential (primary) hypertension; D64.9 Anemia, unspecified; D69.3 Immune thrombocytopenic purpura; M54.2 Cervicalgia; I50.9 Heart failure, unspecified
CPT/HCPCS: 36415; 71046; 72040; 80053; 81001; 83036; 83880; 84439; 84443; 84481; 85025

== ENCOUNTER 2022-07-02 14:23 | Outpatient (CLI) | payer MEDICARE, SELFPAY ==
--- NOTE | ~2022-07-02 | XR_ITS ---
EXAM: XR ribs BI 3V w CXR 2V DATE: 07/02/2022 15:35 HISTORY: chronic falls, post chest pain, hx atrial fibrillation . COMPARISON: X-ray chest 02/18/2022. FINDINGS: Senescent change in the lungs. Persistent left hemidiaphragm elevation. Decreased mineraliz ation. No fracture or dislocation. No lytic or blastic lesion. Degenerative changes in the shoulders and thoracolumbar spine. No erosion or periosteal change. Soft tissues within normal limits. IMPRESSION: No acute osseous finding in the ribs. Reviewed, dictated and finalized at location K.
[2022-07-02 14:48] LABS: Basophils Absolute Auto 0.03 K/mm3 (0.00-0.10); Basophils Percent Auto 0.4 % (0.0-1.0); Eosinophils Absolute Auto 0.15 K/mm3 (0.02-0.50); Eosinophils Percent Auto 2.1 % (1.0-6.0); Hematocrit 34.8 % (37.0-46.0); Hemoglobin 11.1 g/dL (12.4-15.3); Immature Granulocyte Absolute 0.03 K/mm3 (0.00-0.00); Immature Granulocyte Percent A 0.4 % (0.0-0.0); Lymphocytes Absolute Auto 1.06 K/mm3 (1.10-4.50); Mean Corpuscular HGB Conc 31.9 g/dL (32.0-36.0); Mean Corpuscular Hemoglobin 33.2 pg (27.0-31.0); Mean Corpuscular Volume 104.2 fL (78.0-102.0); Mean Platelet Volume 9.7 fl (8.7-11.0); Monocytes Absolute Auto 0.45 K/mm3 (0.10-0.90); Monocytes Percent Auto 6.4 % (2.0-11.0); Neutrophils Absolute Auto 5.4 K/mm3 (1.7-7.2); Neutrophils Percent Auto 75.7 % (50.0-70.0); Platelet Count Result 148 K/mm3 (150-420); Red Blood Count 3.34 M/mm3 (4.70-6.10); Red Cell Distribution Width 13.2 % (11.6-14.4); White Blood Count 7.1 K/mm3 (4.8-10.8)
[2022-07-02 14:59] LABS: Add Urine Microscopic? YES; Appearance Urine Clear (Clear); Bilirubin Urine Negative (Negative); Blood Urine Negative (Negative); Color Urine Light Yellow (Yellow); Glucose Urine UA Negative (Negative); Ketones Urine Negative (Negative); Leukocyte Esterase Ur 1+ (Negative); Nitrate Urine Negative (Negative); Protein Urine Negative (Negative); Specific Grav Ur <= 1.005 (1.010-1.020); Urobilinogen Urine 0.2 mg/dL (0.2-1.0); pH Urine 5.5 (5.0-8.0)
[2022-07-02 15:02] LABS: Hemoglobin A1C 7.1 % (<5.7)
[2022-07-02 15:26] LABS: Bacteria Urine Trace /hpf; RBC Urine 0-2 /hpf (0-2); Squamous Epithelial Cell Urine Rare /hpf (Few)
[2022-07-02 16:02] LABS: Alanine Aminotransferase 14 U/L (16-63); Albumin Level 3.4 g/dL (3.4-5.0); Alkaline Phosphatase 69 U/L (46-116); Anion Gap 7 mmol/L (8-16); Aspartate Amino Transferase 16 U/L (15-37); Bilirubin,Total 0.5 mg/dL (0.00-1.00); Blood Urea Nitrogen 26 mg/dL (7-18); Calcium 8.9 mg/dL (8.5-10.1); Carbon Dioxide 28 mmol/L (21-32); Chloride 106 mmol/L (98-108); Estimated Glomerular Filt Rate 55; Ferritin 308 ng/mL (26-388); Free T3 1.85 pg/mL (2.18-3.98); Free T4 Free Thyroxine 0.91 ng/dL (0.76-1.46); Glucose 126 mg/dL (70-99); Iron 59 ug/dL (65-175); Osmolality Calculated 298 mOsm/kg (285-295); Sodium 141 mmol/L (136-145); Thyroid Stimulating Hormone 2.83 uIU/mL (0.36-3.74); Total Protein 6.2 g/dL (6.4-8.2)
== END 2022-07-02 14:24 | disposition home or self-care (01) ==
LOC: CHSLAB 14:27
PROVIDERS: PCP Internal Medicine; Visit Provider Internal Medicine
DX: I48.19 Other persistent atrial fibrillation (principal); C34.90 Malignant neoplasm of unspecified part of unspecified bronchus or lung; N39.0 Urinary tract infection, site not specified; A41.9 Sepsis, unspecified organism; D64.9 Anemia, unspecified; E11.9 Type 2 diabetes mellitus without complications
CPT/HCPCS: 36415; 71046; 71110; 80053; 81001; 82728; 83036; 83540; 84439; 84443; 84481; 85025; 87077; 87086; 87088; 87186

== ENCOUNTER 2022-08-16 17:05 | Inpatient (IN) | payer MEDICARE, SELFPAY ==
--- NOTE | 2022-08-16 17:43 | PC.NURSE ---
Patient admitted to room 204 per wheelchair, is alert and oriented and aware of room surroundings.
[2022-08-16 17:45] VITALS: BMI 25.3
[2022-08-16 18:04] VITALS: BP 115/58; PULSE 94; RESP 20; TEMP 36.6; O2SAT 98
--- NOTE | 2022-08-16 19:17 | PC.NURSE ---
Contact Sony Rosa NP for clarification on diet order and to notify of pharmacy clarification orders needed.
[2022-08-16] MEDS: ROSUVASTATIN 10 MG TABLET PO (21:31)
[2022-08-16] MEDS: ACETAMINOPHEN 500 MG TABLET PO (21:31)
[2022-08-16 21:37] LABS: Glucose Point of Care 188 mg/dl (65-105)
--- NOTE | 2022-08-16 23:14 | PC.NURSE ---
Sleeping with head of bed up 20 degrees. Bed alarm on. No distress noted.
[2022-08-16 23:49] VITALS: BP 112/63; PULSE 84; RESP 18; TEMP 36.6; O2SAT 95
--- NOTE | 2022-08-17 06:11 | PC.NURSE ---
Addendum entered by Odette Terry RN 08/17/22 06:33: Patient states he has a rash all over his body; during turning, skin of lower extremities and lower torso visualized and inspected no signs of rash noted except redness on sacrum and buttocks. Original Note: Patient states he thinks thickener is causing his rash and wants to quit using it. Explained need to use thickner to aid in swallowing. Patient states he would like a swallowing study to confirm need for it because his throat surgeon said nothing was wrong with his throat and he does not understand why he needs it. Also complains of itching and generalized rash that he has had and wants an other the counter cream he has used in the past for the same. Assisted by 2 to reposition in bed and buttocks and sacral areas visualized and cleansed with wipes and barrier cream reapplied. Patient states area is production machine tender to touch. Redness to sacral area and buttocks remains. Patient then asked if nurse could get him Nystatin powder to put on area. States worked well on his stoma and would like some for his bottom. Continues to turn side to side. Pillow placed behind back and between legs. Head of Bed up 15 degrees. Isamar leadership development manager informed of patient multiple concerns.
--- NOTE | 2022-08-17 06:36 | PC.NURSE ---
Called to room by patient, states he can not locate his cell phone. Reminded patient phone is plugged up on bedside table. Nurse gave patient his phone. Patient states he is calling his daughter and getting her ass out of bed because he needs this taken care of . Reminded patient hospitalist will be here at around 8am and this nurse informed Isamar Masters RN of patient concerns and left note in chart regarding his concerns. Isamar Masters RN informed. This nurse reviewed patient transfer records and unable to find note about rash or any over the counter product patient used. Isamar Masters RN informed.
--- NOTE | 2022-08-17 07:05 | PC.NURSE ---
Sweatshirt removed with assist of two. Slight Rash noted left anterior chest wall. No rash noted to back or arms. Patient states rash is all over. He spoke with daughter regarding her laundry soap and she would look into it. Asked for cream the doctor at ordered at [place]. Explained to patient DC orders did not include cream and hospitalist will address this when they arrive. Report to Hector at bedside.
[2022-08-17 07:26] VITALS: BP 90/53; PULSE 82; RESP 16; TEMP 36.4; O2SAT 96
[2022-08-17 07:54] LABS: Glucose Point of Care 139 mg/dl (65-105)
[2022-08-17] MEDS: INSULIN GLARGINE (*BKC) 100 UNITS/ML 15 UNITS SUB-Q (08:08)
[2022-08-17 08:09] LABS: Hematocrit 30.4 % (37.0-46.0); Hemoglobin 9.8 g/dL (12.4-15.3); Immature Platelet Fraction Pct 2.2 % (1.0-7.0); Mean Corpuscular HGB Conc 32.2 g/dL (32.0-36.0); Mean Corpuscular Hemoglobin 31.9 pg (27.0-31.0); Mean Platelet Volume 9.7 fl (8.7-11.0); Platelet Count Result 105 K/mm3 (150-420); Red Blood Count 3.07 M/mm3 (4.70-6.10); White Blood Count 5.2 K/mm3 (4.8-10.8)
--- NOTE | 2022-08-17 08:10 | PC.NURSE ---
Lung sounds CTA with diminished sounds in RLL.
[2022-08-17] MEDS: PANTOPRAZOLE 40 MG TABLET PO ×2 (08:11→20:58)
[2022-08-17] MEDS: NITROFURANTOIN MONOHYD MACROCR 100 MG CAP PO (08:12)
[2022-08-17] MEDS: FINASTERIDE 5 MG TABLET PO (08:12)
[2022-08-17] MEDS: CHOLECALCIFEROL 400 UNITS TABLET (VIT D) PO (08:12)
[2022-08-17] MEDS: ACETAMINOPHEN 500 MG TABLET PO ×2 (08:12→20:58)
[2022-08-17] MEDS: APIXABAN 2.5 MG TABLET 5 MG PO ×2 (08:14→20:57)
[2022-08-17] MEDS: LORATADINE 10 MG TABLET PO (08:14)
[2022-08-17 08:15] VITALS: PULSE 86
[2022-08-17] MEDS: metFORMIN HCL 500 MG TABLET PO (08:15)
[2022-08-17] MEDS: DIGOXIN TAB 125 MCG TABLET PO (08:15)
[2022-08-17 08:22] VITALS: PULSE 86
[2022-08-17 08:24] LABS: Anion Gap 5 mmol/L (8-16); Blood Urea Nitrogen 14 mg/dL (7-18); Calcium 9.1 mg/dL (8.5-10.1); Carbon Dioxide 28 mmol/L (21-32); Chloride 102 mmol/L (98-108); Estimated CRCL calculation 55 ml/min; Estimated Glomerular Filt Rate > 60; Glucose 136 mg/dL (70-99); Osmolality Calculated 282 mOsm/kg (285-295); Potassium 3.8 mmol/L (3.5-5.1); Sodium 135 mmol/L (136-145)
--- NOTE | 2022-08-17 08:33 | PM.IMHP ---
H&P: HPI History of Present Illness Date/Time: 08/17/22 08:33 Chief Complaint: Weakness, atrial fibrillation, hypotension, pain Narrative: This is a 81-year-old male with the presents to our swing bed as he has been admitted and discharged from [facility] with sepsis he had a day stay there and has been previously hospitalized several different hospitals over the past 90 days. Patient was admitted on 05/24/2022 to 05/28/2020 to [facility] due to weakness and abdominal pain was found to be in septic shock requiring vasopressor, was transferred to [facility] for management. Patient was then discharged due to improvement of to rehab physical therapy and to complete his antibiotics which she completed and was discharged home. Patient was then admitted on 07 08-07 22 to [facility] and was found to be in septic shock again from acute cystitis patient self catheterizes self which may be the source of some of the infection patient's echo where was found that he had right ventricle systolic function was normal and a EF of 68%. Patient has a ascending aorta was 4.3 cm there was a mild mitral valve regurgitation mild mitral stenosis. Patient at that time tested positive for C. difficile he was seen by the radiation oncology there and received treatment and completed and went home on 07/31/2022 patient also had a EGD there with a dilation for dysphagia. 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 patient also has diabetes thrombocytopenia coronary artery disease status post PCI to RCA, LAD, PDA, prostate cancer status posttreatment condition urinary retention and self-catheterization, CHF hypertension, dyslipidemia patient sees Dr. Morley. Patient has the antigen for C. difficile but is not positive for C. difficile with no symptoms. At this time sepsis has been resolved UTI has been resolved he has several outpatient appointments where he will follow-up with we will swing him and see him with physical therapy occupational therapy and evaluated by speech therapy we will monitor patient's H&H as well. Patient has complaints of rash that he has had for a long while more than 2 to 3 weeks. Review of Systems Review of Systems: Weakness, rehab All systems reviewed & are unremarkable except as noted in HPI and below PMFSH Past Medical History Medical History Acute GI bleeding Anemia Atrial fibrillation Coronary artery disease Depression Diabetes Hyperlipidemia Hypertension Peripheral neuropathy Spinal stenosis Subdural hematoma UTI (urinary tract infection) Surgical History Surgical History History of appendectomy History of cholecystectomy History of coronary artery stent placement History of knee replacement Family History Family History Father Cerebrovascular accident Mother Cerebrovascular accident Mother Diabetes mellitus Sibling Acute myocardial infarction Sibling Lung cancer Social History Social History Smoking status: Never smoker Second hand tobacco smoke exposure: No Alcohol intake: never Substance use: never Substance use type: does not use Ge
--- NOTE | 2022-08-17 08:45 | PC.NURSE ---
Patient c/o itching all over his body. Faint rash present on trunk, both front and back, but is transient. Patient refuses to use thickener for liquids stating that he believes that is what he is allergic to .
[2022-08-17 11:54] LABS: Glucose Point of Care 166 mg/dl (65-105)
--- NOTE | 2022-08-17 12:01 | PC.NURSE ---
Cooler Operator provided education regarding thickened liquids and patient has agreed to use thickner to prevent aspiration.
--- NOTE | 2022-08-17 12:55 | PC.NURSE ---
message left erickson stahl change attendant re: patient wanting something for rash and itching
[2022-08-17 16:00] VITALS: BP 95/56; PULSE 78; RESP 16; TEMP 36.2; O2SAT 97
[2022-08-17 16:41] LABS: Glucose Point of Care 123 mg/dl (65-105)
[2022-08-17 19:48] VITALS: PULSE 78; RESP 16; O2SAT 97
[2022-08-17] MEDS: ROSUVASTATIN 10 MG TABLET PO (20:58)
[2022-08-17 21:12] LABS: Glucose Point of Care 143 mg/dl (65-105)
--- NOTE | 2022-08-17 22:59 | PC.NURSE ---
Order Editor called to pt room, pt c/o burning at stoma site, states it has been burning since 10pm, colostomy bag noted to have liquid BM and gas, bag emptied, 200mL brown liquid stool obtained. Pt requesting Nystatin powder be applied, instructed pt that an order is required for that medication, will update hospitalist in the AM, pt displeased, wanting FIREWORKS ASSEMBLY SUPERVISOR updated now, instructed pt that he is in stable condition, no change noted to stoma site. Pt states understanding.
[2022-08-18] VITALS: BP 96/54; PULSE 97; RESP 16; TEMP 36.3; O2SAT 98
[2022-08-18 07:44] LABS: Glucose Point of Care 119 mg/dl (65-105)
[2022-08-18 07:59] VITALS: BP 102/56; PULSE 83; RESP 16; TEMP 36.3; O2SAT 96
[2022-08-18] MEDS: INSULIN GLARGINE (*BKC) 100 UNITS/ML 15 UNITS SUB-Q (08:12)
[2022-08-18 08:14] VITALS: PULSE 83
[2022-08-18] MEDS: DIGOXIN TAB 125 MCG TABLET PO (08:14)
[2022-08-18] MEDS: PANTOPRAZOLE 40 MG TABLET PO ×2 (08:14→20:26)
[2022-08-18] MEDS: FINASTERIDE 5 MG TABLET PO (08:15)
[2022-08-18] MEDS: APIXABAN 2.5 MG TABLET 5 MG PO ×2 (08:15→20:26)
[2022-08-18] MEDS: metFORMIN HCL 500 MG TABLET PO (08:15)
[2022-08-18] MEDS: NITROFURANTOIN MONOHYD MACROCR 100 MG CAP PO (08:16)
[2022-08-18] MEDS: CHOLECALCIFEROL 400 UNITS TABLET (VIT D) PO (08:16)
[2022-08-18] MEDS: LORATADINE 10 MG TABLET PO (08:16)
[2022-08-18] MEDS: ACETAMINOPHEN 500 MG TABLET PO ×2 (08:24→20:26)
[2022-08-18 11:52] LABS: Glucose Point of Care 148 mg/dl (65-105)
[2022-08-18 13:48] LABS: Glucose Point of Care 150 mg/dl (65-105)
--- NOTE | 2022-08-18 13:51 | PC.NURSE ---
patient in bed. called to room by his nurse. hr manually palpated goes from 80-120's. stock sheets cleaner inspector called and told of findings with patient's c/o feeling heart racing. and his nurse holding metoprolol this am due to bp 86/52 in bed and once up 102/56 and hr 80. told to give metoprolol now
--- NOTE | 2022-08-18 13:58 | PC.NURSE ---
Patient visibly shaking while sign writer letterer or painter was checking in on him. Case Resolution Specialist assessed VS and found BS 150, BP 146/96, P 128 manual apical, R 18 and T 97.9. Case Resolution Specialist notified charge nurse, who notified HYBRID DERIVATIVES TRADER and was given orders to administer PO Metoprolol 25 mg .
[2022-08-18 14:01] VITALS: PULSE 83
--- NOTE | 2022-08-18 14:05 | PC.NURSE ---
Willower administered metoprolol succinate ER 25 mg per JET HANDLER order, will continue to monitor patient.
--- NOTE | 2022-08-18 14:37 | PC.NURSE ---
Patient's HR in the 90s and irregular. Patient no longer shaking and states that he is feeling better.
--- NOTE | 2022-08-18 15:04 | PC.NURSE ---
Patient resting comfortably. BP 126/57 P 109 and irregular. Denies pain.
[2022-08-18 16:00] VITALS: BP 121/70; PULSE 106; RESP 16; TEMP 37.1; O2SAT 95
[2022-08-18 16:44] LABS: Glucose Point of Care 136 mg/dl (65-105)
[2022-08-18 20:00] VITALS: PULSE 106; RESP 16; O2SAT 95
[2022-08-18] MEDS: ROSUVASTATIN 10 MG TABLET PO (20:26)
[2022-08-18 20:34] LABS: Glucose Point of Care 184 mg/dl (65-105)
--- NOTE | 2022-08-18 21:02 | PC.NURSE ---
Increased confusion noted, communications writer had been in room to set pt up for snack, refilled water on left side table, within less than 10 min pt called for more water, pt had moved water to right side table and could not find it. Pt A&Ox4, water placed back on left side table for pt convenience. VS stable, no distress noted.
[2022-08-19] VITALS: BP 112/56; PULSE 96; RESP 16; TEMP 37; O2SAT 96
--- NOTE | 2022-08-19 01:53 | PC.NURSE ---
resting comfortably in bed, Heart rate remains irregular at rate 95-115, SPO2 at 96% on room air, no distress noted, no complaints voiced.
--- NOTE | 2022-08-19 03:28 | PC.NURSE ---
Pt confusion continues, pt called speech writer to room, requested speech writer place gauze on his wrist, pt unable to say why he requests this, gauze placed on wrist, pt reorientated to time, pt denies complaints at this time, no distress noted.
[2022-08-19 05:19] LABS: Basophils Absolute Auto 0.04 K/mm3 (0.00-0.10); Basophils Percent Auto 0.3 % (0.0-1.0); Eosinophils Absolute Auto 0.34 K/mm3 (0.02-0.50); Eosinophils Percent Auto 2.6 % (1.0-6.0); Hematocrit 29.2 % (37.0-46.0); Hemoglobin 9.8 g/dL (12.4-15.3); Immature Granulocyte Absolute 0.08 K/mm3 (0.00-0.00); Immature Granulocyte Percent A 0.6 % (0.0-0.0); Lymphocytes Absolute Auto 1.02 K/mm3 (1.10-4.50); Lymphocytes Percent Auto 7.8 % (18.0-42.0); Mean Corpuscular HGB Conc 33.6 g/dL (32.0-36.0); Mean Corpuscular Hemoglobin 32.6 pg (27.0-31.0); Mean Platelet Volume 9.6 fl (8.7-11.0); Neutrophils Absolute Auto 11.2 K/mm3 (1.7-7.2); Neutrophils Percent Auto 85.7 % (50.0-70.0); Platelet Count Result 105 K/mm3 (150-420); Red Blood Count 3.01 M/mm3 (4.70-6.10); Red Cell Distribution Width 13.9 % (11.6-14.4); White Blood Count 13.1 K/mm3 (4.8-10.8)
[2022-08-19 05:37] LABS: Alanine Aminotransferase 10 U/L (16-63); Albumin Level 2.4 g/dL (3.4-5.0); Alkaline Phosphatase 65 U/L (46-116); Anion Gap 6 mmol/L (8-16); Aspartate Amino Transferase < 10 U/L (15-37); Bilirubin,Total 0.4 mg/dL (0.00-1.00); Blood Urea Nitrogen 16 mg/dL (7-18); Calcium 8.7 mg/dL (8.5-10.1); Carbon Dioxide 24 mmol/L (21-32); Chloride 98 mmol/L (98-108); Estimated CRCL calculation 44 ml/min; Estimated Glomerular Filt Rate 59; Glucose 174 mg/dL (70-99); Osmolality Calculated 271 mOsm/kg (285-295); Potassium 4.1 mmol/L (3.5-5.1); Sodium 128 mmol/L (136-145); Total Protein 5.1 g/dL (6.4-8.2)
[2022-08-19 08:00] VITALS: BP 99/50; PULSE 79; RESP 14; TEMP 36.5; O2SAT 95
[2022-08-19 08:11] LABS: Add Urine Microscopic? NO; Appearance Urine Clear (Clear); Bilirubin Urine Negative (Negative); Blood Urine Negative (Negative); Color Urine Yellow (Yellow); Glucose Urine UA Negative (Negative); Ketones Urine Negative (Negative); Leukocyte Esterase Ur Negative (Negative); Nitrate Urine Negative (Negative); Protein Urine Negative (Negative); Specific Grav Ur 1.015 (1.010-1.020); Urobilinogen Urine 0.2 mg/dL (0.2-1.0); pH Urine 5.5 (5.0-8.0)
--- NOTE | 2022-08-19 08:28 | IDPHARM ---
[facility] was consulted by Viviana Rosa regarding infectious diseases for Jhon Ponce. Jhon Ponce is a 87 year old M with concerns regarding sepsis and previous infectious history. Background The patient is currently receiving nitrofurantoin. The patient's PMH includes having multiple episodes of shock and septic shock in last few weeks per provider. Additionally, the patients WBC has increased from 5.2 to 13.1 and has an SCr of 1.17 mg/dL. Assessment/Recommendation/Discussion Discussed with the provider that potentially this may be leading towards an infection given the rise of WBC. Additionally, given the patient's age, perhaps serum creatinine does not provide the most accurate description of patient's creatinine clearance and may report a falsely elevated creatinine clearance. This may indicate that the nitrofurantoin does not penetrate the bladder in desired concentrations which may lead to not to be able to suppress this patient's susceptible pathogen(s). Discussed with provider that, given his allergies and pathogen resistance profiles, upon their evaluation, the patient may benefit from IV ertapenem renally adjusted to 500 mg q8h. Thank you for the interesting consult. Jose Juan Silverio, PharmD Infectious Disease/Antimicrobial Stewardship Pharmacist 08/19/22; [id number]
[2022-08-19] MEDS: PANTOPRAZOLE 40 MG TABLET PO ×2 (09:29→20:35)
[2022-08-19] MEDS: APIXABAN 2.5 MG TABLET 5 MG PO ×2 (09:29→20:35)
[2022-08-19 09:30] VITALS: PULSE 77
[2022-08-19] MEDS: metFORMIN HCL 500 MG TABLET PO (09:30)
[2022-08-19] MEDS: CHOLECALCIFEROL 400 UNITS TABLET (VIT D) PO (09:30)
[2022-08-19] MEDS: METOPROLOL SUCCINATE EXT REL 25 MG TABCR PO (09:30)
[2022-08-19] MEDS: FINASTERIDE 5 MG TABLET PO (09:30)
[2022-08-19] MEDS: LORATADINE 10 MG TABLET PO (09:30)
[2022-08-19] MEDS: DIGOXIN TAB 125 MCG TABLET PO (09:30)
[2022-08-19] MEDS: INSULIN GLARGINE (*BKC) 100 UNITS/ML 15 UNITS SUB-Q (09:31)
[2022-08-19] MEDS: NITROFURANTOIN MONOHYD MACROCR 100 MG CAP PO (09:31)
--- NOTE | 2022-08-19 11:16 | PM.EVENT ---
Event Note Event Note Event Note: Call placed to infectious disease doctor pharmacist this morning as patient over the past few days has been doing been displaying some hypotension had episodes of tachycardia although he does have atrial fibrillation is had his beta-meghna held for the past couple days due to low blood pressure. Discussion had with the nurses to reevaluate patient at a later time as he will need to have the beta-meghna is Heart able to tolerate days without it for rate control. Patient also has had some confusion concern is that patient may be septic again he has been in ICU 3 times over the past 90 days at this time we will draw blood cultures urine has been sent off and I will start patient on imipenem 500 mg every 8 hours. We will continue to monitor discussion also had with patient's daughter for about 20 minutes and I assessed the patient as she is concerned that patient is becoming septic he is displaying the signs and symptoms he did previously. Patient buttock is breaking down and is sore. antifungal has been started today with some clear barrier spray .
[2022-08-19 11:44] LABS: Glucose Point of Care 178 mg/dl (65-105)
--- NOTE | 2022-08-19 13:19 | PC.NURSE ---
Pt has fungal infection on his butt. Osvaldo color, blanches easily. He does have 3 tiny open areas. Zinc oxide DC'D. We are using Aloe [place] antifungal and spray barrier BID and prn. These items are at the bedside.
[2022-08-19 17:00] VITALS: BP 123/55; PULSE 98; RESP 18; TEMP 36.1; O2SAT 98
[2022-08-19 17:09] LABS: Glucose Point of Care 131 mg/dl (65-105)
[2022-08-19 19:43] VITALS: PULSE 98; RESP 18; O2SAT 98
[2022-08-19] MEDS: MELATONIN 5 MG TABLET PO (20:35)
[2022-08-19] MEDS: ROSUVASTATIN 10 MG TABLET PO (20:35)
[2022-08-19] MEDS: ACETAMINOPHEN 500 MG TABLET PO (20:36)
[2022-08-19 20:40] LABS: Glucose Point of Care 191 mg/dl (65-105)
--- NOTE | 2022-08-19 23:35 | PC.NURSE ---
Pt requesting 2 lidocaine patches for left shoulder and upper back area d/t soreness, states he has had this medication before and it was effective, charge nurse updated, will request order with HOSIERY OPERATOR when on unit.
[2022-08-19 23:57] VITALS: BP 103/57; PULSE 97; RESP 16; TEMP 36.3; O2SAT 98
[2022-08-20 07:57] VITALS: BP 99/58; PULSE 78; RESP 14; TEMP 36.2; O2SAT 97
[2022-08-20 07:59] LABS: Glucose Point of Care 151 mg/dl (65-105)
--- NOTE | 2022-08-20 08:37 | PM.EVENT ---
Event Note Event Note Event Note: Patient is complaining of some pain and i have added Lidocaine patches as he is having pain there but blood pressure is low and I do not want to lower any more. I also added a probiotic to patient while he is on antibiotics
[2022-08-20] MEDS: INSULIN GLARGINE (*BKC) 100 UNITS/ML 15 UNITS SUB-Q (08:55)
[2022-08-20] MEDS: CHOLECALCIFEROL 400 UNITS TABLET (VIT D) PO (08:56)
[2022-08-20 08:57] VITALS: PULSE 106
[2022-08-20] MEDS: LORATADINE 10 MG TABLET PO (08:57)
[2022-08-20] MEDS: PANTOPRAZOLE 40 MG TABLET PO ×2 (08:57→20:03)
[2022-08-20] MEDS: APIXABAN 2.5 MG TABLET 5 MG PO ×2 (08:57→20:01)
[2022-08-20] MEDS: metFORMIN HCL 500 MG TABLET PO (08:57)
[2022-08-20] MEDS: DIGOXIN TAB 125 MCG TABLET PO (08:57)
[2022-08-20] MEDS: SACCHAROMYCES BOULARDII 250 MG CAPSULE PO ×2 (08:57→18:19)
[2022-08-20] MEDS: FINASTERIDE 5 MG TABLET PO (08:58)
[2022-08-20] MEDS: SODIUM CHLORIDE 0.9% IV 1,000 ML 75 ML IV CONT ×2 (09:34→22:47)
[2022-08-20] MEDS: LIDOCAINE 5% PATCH 2 PATCH TRANSDERM (09:42)
[2022-08-20 11:40] VITALS: BP 106/51; PULSE 76; RESP 14; TEMP 36.2; O2SAT 98
[2022-08-20 11:46] LABS: Glucose Point of Care 199 mg/dl (65-105)
[2022-08-20 11:57] VITALS: PULSE 76
[2022-08-20] MEDS: METOPROLOL SUCCINATE EXT REL 25 MG TABCR PO (11:57)
--- NOTE | 2022-08-20 12:04 | PC.NURSE ---
Metoprolol held at 0900 because of low blood pressure, 80/40 and pulse of 116. VS at 1130 as follows 106/51, 76, 97.2 and 14. Metoprolol given at 1130.
[2022-08-20 16:28] LABS: Glucose Point of Care 170 mg/dl (65-105)
[2022-08-20 16:40] VITALS: BP 94/50; PULSE 77; RESP 18; TEMP 36.3; O2SAT 99
--- NOTE | 2022-08-20 19:45 | PC.NURSE ---
Pt assisted w/emptying and rinsing out ostomy bag. Pt tolerated well and performed the intervention mostly independently.
[2022-08-20] MEDS: ACETAMINOPHEN 500 MG TABLET PO (20:01)
[2022-08-20] MEDS: MELATONIN 5 MG TABLET PO (20:03)
[2022-08-20] MEDS: ROSUVASTATIN 10 MG TABLET PO (20:03)
[2022-08-20 20:20] LABS: Glucose Point of Care 165 mg/dl (65-105)
--- NOTE | 2022-08-20 21:24 | PC.NURSE ---
Pt assisted w/expelling air from ostomy bag. Pt was given gloves to maintain hygiene w/handling ostomy bag. Call light w/in reach; side railsx3; night light on; and bed in lowest position for pt safety.
--- NOTE | 2022-08-20 22:24 | PC.NURSE ---
Pt assisted w/straight catheter procedure. Pt was given sterile gloves due to wanting to perform the intervention independently. Pt performed fairly and nearly broke sterile field several times, but was given instruction to prevent this from occurring. Pt's tip of penis cleansed w/betadine swab and pt inserted pre-lubricated catheter brought from home. Pt had 300 mL of yellow urine that had some cloudiness in appearance. Once procedure was completed pt was given a hygiene wipe to clean the lloyd-area. Pillows adjusted for comfort and pt verbalized appreciation of the assistance provided and reiterated his prior knowledge of the procedure process from home. Call light w/in reach;side railsx3; night light and bed alarm on; and bed in lowest position for pt safety.
[2022-08-20 23:01] VITALS: BP 95/48; PULSE 73; RESP 15; TEMP 36.2; O2SAT 95
--- NOTE | 2022-08-21 00:36 | PC.NURSE ---
Pt assisted w/emptying and rising out ostomy bag. Pt needed only minimal assist. Stool was light brown in color. Pt given gloves to maintain hygiene when rinsing out ostomy bag. Once intervention completed this RN and Rajeev RN from ED moved the pt closer to the HOB. HOB put in position for pt comfort. Heels elevated w/2 pillows and pillow b/w knees per pt request. Call light placed w/in reach; side railsx3; bed alarm and night light on; and bed in lowest position for pt safety.
[2022-08-21 05:08] LABS: Hematocrit 26.1 % (37.0-46.0); Hemoglobin 8.7 g/dL (12.4-15.3); Immature Platelet Fraction Pct 2.4 % (1.0-7.0); Mean Corpuscular HGB Conc 33.3 g/dL (32.0-36.0); Mean Corpuscular Hemoglobin 32.7 pg (27.0-31.0); Mean Corpuscular Volume 98.1 fL (78.0-102.0); Mean Platelet Volume 9.6 fl (8.7-11.0); Platelet Count Result 103 K/mm3 (150-420); Red Blood Count 2.66 M/mm3 (4.70-6.10); White Blood Count 4.9 K/mm3 (4.8-10.8)
[2022-08-21 05:36] LABS: Alanine Aminotransferase 8 U/L (16-63); Albumin Level 2.2 g/dL (3.4-5.0); Alkaline Phosphatase 60 U/L (46-116); Anion Gap 3 mmol/L (8-16); Aspartate Amino Transferase 10 U/L (15-37); Bilirubin,Total 0.3 mg/dL (0.00-1.00); Blood Urea Nitrogen 14 mg/dL (7-18); Calcium 8.3 mg/dL (8.5-10.1); Carbon Dioxide 28 mmol/L (21-32); Chloride 101 mmol/L (98-108); Estimated CRCL calculation 55 ml/min; Estimated Glomerular Filt Rate > 60; Potassium 3.9 mmol/L (3.5-5.1); Sodium 132 mmol/L (136-145); Total Protein 4.9 g/dL (6.4-8.2)
[2022-08-21 05:37] LABS: Digoxin 1.1 ng/mL (0.9-2.0)
[2022-08-21 05:42] LABS: Glucose 142 mg/dL (70-99); Osmolality Calculated 276 mOsm/kg (285-295)
--- NOTE | 2022-08-21 06:49 | PC.NURSE ---
Stage II pressure ulcer found on pt's R buttock near the coccyx. Photos taken and being uploaded w/dimensions. Area wiped clean w/hygiene wipe and aloe vera antifungal cream applied to area. Then barrier spray was applied to area and surrounding skin, and finally a foam mepilex applied to area that is initialed; dated; and timed. Pt educated on why photos are taken and process of how the RN's will track wound progression.
[2022-08-21 08:00] VITALS: BP 117/62; PULSE 89; RESP 14; TEMP 36.2; O2SAT 99
[2022-08-21] MEDS: LIDOCAINE 5% PATCH 2 PATCH TRANSDERM (09:19)
[2022-08-21] MEDS: SACCHAROMYCES BOULARDII 250 MG CAPSULE PO ×2 (09:19→17:43)
[2022-08-21] MEDS: CHOLECALCIFEROL 400 UNITS TABLET (VIT D) PO (09:20)
[2022-08-21] MEDS: metFORMIN HCL 500 MG TABLET PO (09:20)
[2022-08-21] MEDS: APIXABAN 2.5 MG TABLET 5 MG PO ×2 (09:20→20:56)
[2022-08-21] MEDS: LORATADINE 10 MG TABLET PO (09:20)
[2022-08-21] MEDS: FINASTERIDE 5 MG TABLET PO (09:21)
[2022-08-21] MEDS: PANTOPRAZOLE 40 MG TABLET PO ×2 (09:22→20:55)
--- NOTE | 2022-08-21 09:24 | PC.NURSE ---
messages left for juvenal zamora in st for bedside swalloweval
[2022-08-21] MEDS: INSULIN GLARGINE (*BKC) 100 UNITS/ML 15 UNITS SUB-Q (09:35)
--- NOTE | 2022-08-21 09:50 | P.PN_ITS ---
Progress Note: A&P Assessment and Plan (1) Rectal cancer: Code(s): C20 - Malignant neoplasm of rectum Status: Acute Assessment and Plan: * secondary to rectal Ca * monitor for S/S of bleeding, hgb 9.8>9.8>8.7 * patient has appointment today (2) Diabetes: Code(s): E11.9 - Type 2 diabetes mellitus without complications Status: Acute Assessment and Plan: * Blood sugar stable * continue Accu-Cheks with sliding scale and hypoglycemic protocol * Will adjust medication as needed * A1C 6.4 on 07/08/2022 (3) Hypertension: Code(s): I10 - Essential (primary) hypertension Status: Acute Assessment and Plan: * Patient currently hypotensive * Previous provider spoke with [employer] bowling centre manager who recommends that patient take beta-meghna and digoxin later in the day when his blood pressure is not hypotensive. Patient will take metoprolol at 5:00 PM and digoxin at 12:00 noon. We will closely monitor patient. * Patient quickly goes into A. fib without his beta-meghna * Her previous provider patient [employer] manager recommended that we give patient normal saline at 75 mL for 24 hours. Completed (4) Anemia: Code(s): D64.9 - Anemia, unspecified Status: Acute Assessment and Plan: * Acute on chronic anemia * possible secondary to rectal bleeding due to rectal cancer * Trend H&H will transfuse <7.0 * Closely monitor hemoglobin and hematocrit (5) History of urinary self-catheterization: Code(s): Z78.9 - Other specified health status Status: Acute Assessment and Plan: * Will have nurse monitor patient while he self cath to ensure he is using a sterile technique (6) Weakness: Code(s): R53.1 - Weakness Status: Acute Assessment and Plan: ? Exhibit tolerance during physical activity as evidenced by a normal fluctuation of vital signs during physical activity. ? Patient will be ability to perform required activities of daily living. ? Provide appropriate nutrition for healing and strength. ? Use appropriate to prevent falls. ? Continue physical therapy/occupational therapy. (7) Atrial fibrillation: Qualifiers: Atrial fibrillation type: unspecified Qualified Code(s): I48.91 - Unspecified atrial fibrillation Code(s): I48.91 - Unspecified atrial fibrillation Status: Acute Assessment and Plan: * Rate controlled * continue home apixaban * continue beta meghna * hold if SBP is 90 or less (8) Depression: Code(s): F32.9 - Major depressive disorder, single episode, unspecified Status: Acute Assessment and Plan: * continue home medication (9) Acquired thrombocytopenia: Code(s): D69.6 - Thrombocytopenia, unspecified Status: Acute Assessment and Plan: * PLt 105> 103 * possible secondary to CA (10) UTI (urinary tract infection): Code(s): N39.0 - Urinary tract infection, site not specified Status: Acute Assessment and Plan: * Chronic * Patient has had multiple hospitalizations due to urosepsis * Patient will discharge home with antibiotic for preventative measure * Patient currently on imipenemX7 days Possible reoccurring UTI * UA culture from 08/18/2022 without growth * wbc 13.1>4.9 * Spoke with pharmacy we will continueImipenem x7 days then Transition to fosfomycin For 1 week 3 times a week,Afterward patient was discharged on amoxicillin 500 mg every 12 hours. * (11)
--- NOTE | 2022-08-21 09:50 | WPDPN ---
Progress Note: A&P Assessment and Plan (1) Rectal cancer: Code(s): C20 - Malignant neoplasm of rectum Status: Acute Assessment and Plan: secondary to rectal Ca monitor for S/S of bleeding, hgb 9.8>9.8>8.7 patient has appointment today (2) Diabetes: Code(s): E11.9 - Type 2 diabetes mellitus without complications Status: Acute Assessment and Plan: Blood sugar stable continue Accu-Cheks with sliding scale and hypoglycemic protocol Will adjust medication as needed A1C 6.4 on 07/08/2022 (3) Hypertension: Code(s): I10 - Essential (primary) hypertension Status: Acute Assessment and Plan: Patient currently hypotensive Previous provider spoke with data coordinator who recommends that patient take beta-meghna and digoxin later in the day when his blood pressure is not hypotensive. Patient will take metoprolol at 5:00 PM and digoxin at 12:00 noon. We will closely monitor patient. Patient quickly goes into A. fib without his beta-meghna Her previous provider patient data coordinator recommended that we give patient normal saline at 75 mL for 24 hours. Completed (4) Anemia: Code(s): D64.9 - Anemia, unspecified Status: Acute Assessment and Plan: Acute on chronic anemia possible secondary to rectal bleeding due to rectal cancer Trend H&H will transfuse <7.0 Closely monitor hemoglobin and hematocrit (5) History of urinary self-catheterization: Code(s): Z78.9 - Other specified health status Status: Acute Assessment and Plan: Will have nurse monitor patient while he self cath to ensure he is using a sterile technique (6) Weakness: Code(s): R53.1 - Weakness Status: Acute Assessment and Plan: ? Exhibit tolerance during physical activity as evidenced by a normal fluctuation of vital signs during physical activity. ? Patient will be ability to perform required activities of daily living. ? Provide appropriate nutrition for healing and strength. ? Use appropriate to prevent falls. ? Continue physical therapy/occupational therapy. (7) Atrial fibrillation: Qualifiers: Atrial fibrillation type: unspecified Qualified Code(s): I48.91 - Unspecified atrial fibrillation Code(s): I48.91 - Unspecified atrial fibrillation Status: Acute Assessment and Plan: Rate controlled continue home apixaban continue beta meghna hold if SBP is 90 or less (8) Depression: Code(s): F32.9 - Major depressive disorder, single episode, unspecified Status: Acute Assessment and Plan: continue home medication (9) Acquired thrombocytopenia: Code(s): D69.6 - Thrombocytopenia, unspecified Status: Acute Assessment and Plan: PLt 105> 103 possible secondary to CA (10) UTI (urinary tract infection): Code(s): N39.0 - Urinary tract infection, site not specified Status: Acute Assessment and Plan: Chronic Patient has had multiple hospitalizations due to urosepsis Patient will discharge home with antibiotic for preventative measure Patient currently on imipenemX7 days Possible reoccurring UTI UA culture from 08/18/2022 without growth wbc 13.1>4.9 Spoke with pharmacy we will continueImipenem x7 days then Transition to fosfomycin For 1 week 3 times a week,Afterward patient was discharged on amoxicillin 500 mg every 12 hours. (11) Dysphagia: Code(s): R13.10 - Dysphagia, unspecified Status: Acute Assessment and Plan: EGD with Dilatation for dysphagia completed within the last three month. Exact date unknown. Speech therapy consulted for bedside swallow eval Patient currently on nectar thickened liquids (12) Rectal bleeding: Code(s): K62.5 - Hemorrhage of anus and rectum Status: Acute Assessment and Plan: Secondary to anal squamous cell carcinoma status post immunotherapy and radiation therapy therap
[2022-08-21 11:44] LABS: Glucose Point of Care 163 mg/dl (65-105)
[2022-08-21 12:28] VITALS: PULSE 80
[2022-08-21] MEDS: DIGOXIN TAB 125 MCG TABLET PO (12:28)
--- NOTE | 2022-08-21 14:33 | PC.NURSE ---
Pt is no longer on fluid restriction or IV fluids. He does continue to drink the necter thick liquids. Pt had an esophageal proceedure done 2 weeks ago to widen the esophageal passage. Swallow study has been ordered for pt.
[2022-08-21 16:50] VITALS: BP 124/62; PULSE 92; RESP 17; TEMP 36.5; O2SAT 99
--- NOTE | 2022-08-21 16:50 | PC.NURSE ---
Pt returned from 's appointment with daughter via wheelchair. Pt clothing changed and assisted into bed.
[2022-08-21] MEDS: METOPROLOL SUCCINATE EXT REL 25 MG TABCR PO (17:43)
[2022-08-21 17:47] LABS: Glucose Point of Care 223 mg/dl (65-105)
[2022-08-21] MEDS: MELATONIN 5 MG TABLET PO (20:56)
[2022-08-21] MEDS: ROSUVASTATIN 10 MG TABLET PO (20:56)
[2022-08-21] MEDS: traZODone HCL 25 MG TABLET PO (20:56)
[2022-08-21 21:00] LABS: Glucose Point of Care 218 mg/dl (65-105)
[2022-08-22] VITALS: BP 122/56; PULSE 70; RESP 18; TEMP 35.8; O2SAT 96
[2022-08-22 05:14] LABS: Hematocrit 26.9 % (37.0-46.0); Hemoglobin 8.9 g/dL (12.4-15.3); Mean Corpuscular HGB Conc 33.1 g/dL (32.0-36.0); Mean Corpuscular Hemoglobin 31.9 pg (27.0-31.0); Mean Corpuscular Volume 96.4 fL (78.0-102.0); Mean Platelet Volume 9.7 fl (8.7-11.0); Platelet Count Result 114 K/mm3 (150-420); Red Blood Count 2.79 M/mm3 (4.70-6.10); Red Cell Distribution Width 13.9 % (11.6-14.4); White Blood Count 5.2 K/mm3 (4.8-10.8)
[2022-08-22 05:23] LABS: Anion Gap 5 mmol/L (8-16); Blood Urea Nitrogen 11 mg/dL (7-18); Calcium 8.6 mg/dL (8.5-10.1); Carbon Dioxide 26 mmol/L (21-32); Chloride 99 mmol/L (98-108); Estimated CRCL calculation 61 ml/min; Estimated Glomerular Filt Rate > 60; Glucose 129 mg/dL (70-99); Osmolality Calculated 271 mOsm/kg (285-295); Potassium 3.7 mmol/L (3.5-5.1); Sodium 130 mmol/L (136-145)
[2022-08-22 07:35] LABS: Glucose Point of Care 123 mg/dl (65-105)
[2022-08-22 07:53] VITALS: BP 123/61; PULSE 72; RESP 16; TEMP 36.4; O2SAT 95
[2022-08-22] MEDS: INSULIN GLARGINE (*BKC) 100 UNITS/ML 15 UNITS SUB-Q (08:31)
[2022-08-22] MEDS: metFORMIN HCL 500 MG TABLET PO (08:33)
[2022-08-22] MEDS: APIXABAN 2.5 MG TABLET 5 MG PO ×2 (08:33→20:58)
[2022-08-22] MEDS: SACCHAROMYCES BOULARDII 250 MG CAPSULE PO ×2 (08:33→17:01)
[2022-08-22] MEDS: ACETAMINOPHEN 325 MG TABLET 650 MG PO (08:34)
[2022-08-22] MEDS: LORATADINE 10 MG TABLET PO (08:35)
[2022-08-22] MEDS: FINASTERIDE 5 MG TABLET PO (08:36)
[2022-08-22] MEDS: PANTOPRAZOLE 40 MG TABLET PO ×2 (08:36→20:58)
[2022-08-22] MEDS: LIDOCAINE 5% PATCH 2 PATCH TRANSDERM (08:36)
[2022-08-22] MEDS: CHOLECALCIFEROL 400 UNITS TABLET (VIT D) PO (08:36)
[2022-08-22 11:43] VITALS: PULSE 78
[2022-08-22] MEDS: DIGOXIN TAB 125 MCG TABLET PO (11:43)
[2022-08-22 11:58] LABS: Glucose Point of Care 211 mg/dl (65-105)
[2022-08-22 16:00] VITALS: BP 123/71; PULSE 60; RESP 16; TEMP 36.2; O2SAT 99
[2022-08-22 16:38] LABS: Glucose Point of Care 97 mg/dl (65-105)
[2022-08-22 17:00] VITALS: PULSE 60
[2022-08-22] MEDS: METOPROLOL SUCCINATE EXT REL 25 MG TABCR PO (17:00)
--- NOTE | 2022-08-22 18:32 | PC.NURSE ---
Patient has 3 very small open areas on his R upper buttock measuring from top wound down, 0.8 x 0.5, 0.5 x 0.2 and 0.2 x 0.1. Areas were cleansed and a 3 day foam mepilex placed for comfort and protection.
--- NOTE | 2022-08-22 20:27 | PC.NURSE ---
Patient iv abt scanned and started at correct time but MAR will not allow ending to be cfharted for 1 hour althoug it is ordered to run for 20 minutes.
[2022-08-22] MEDS: traZODone HCL 25 MG TABLET PO (20:58)
[2022-08-22] MEDS: MELATONIN 5 MG TABLET PO (20:58)
[2022-08-22] MEDS: ROSUVASTATIN 10 MG TABLET PO (20:58)
[2022-08-22 21:04] LABS: Glucose Point of Care 128 mg/dl (65-105)
[2022-08-22 23:53] VITALS: BP 114/55; PULSE 76; RESP 18; TEMP 35.6; O2SAT 97
[2022-08-23 05:08] LABS: Hematocrit 25.8 % (37.0-46.0); Hemoglobin 8.6 g/dL (12.4-15.3); Mean Corpuscular HGB Conc 33.3 g/dL (32.0-36.0); Mean Corpuscular Hemoglobin 32.3 pg (27.0-31.0); Mean Platelet Volume 9.6 fl (8.7-11.0); Platelet Count Result 110 K/mm3 (150-420); Red Blood Count 2.66 M/mm3 (4.70-6.10); White Blood Count 5.1 K/mm3 (4.8-10.8)
[2022-08-23 05:21] LABS: Anion Gap 4 mmol/L (8-16); Blood Urea Nitrogen 11 mg/dL (7-18); Calcium 8.8 mg/dL (8.5-10.1); Carbon Dioxide 28 mmol/L (21-32); Chloride 99 mmol/L (98-108); Estimated CRCL calculation 63 ml/min; Estimated Glomerular Filt Rate > 60; Glucose 136 mg/dL (70-99); Osmolality Calculated 273 mOsm/kg (285-295); Potassium 3.9 mmol/L (3.5-5.1); Sodium 131 mmol/L (136-145)
[2022-08-23 07:43] LABS: Glucose Point of Care 114 mg/dl (65-105)
[2022-08-23 07:46] VITALS: BP 113/53; PULSE 78; RESP 18; TEMP 36.6; O2SAT 98
[2022-08-23] MEDS: LORATADINE 10 MG TABLET PO (09:12)
[2022-08-23] MEDS: APIXABAN 2.5 MG TABLET 5 MG PO ×2 (09:12→20:29)
[2022-08-23] MEDS: FINASTERIDE 5 MG TABLET PO (09:12)
[2022-08-23] MEDS: PANTOPRAZOLE 40 MG TABLET PO ×2 (09:12→20:29)
[2022-08-23] MEDS: INSULIN GLARGINE (*BKC) 100 UNITS/ML 15 UNITS SUB-Q (09:12)
[2022-08-23] MEDS: SACCHAROMYCES BOULARDII 250 MG CAPSULE PO ×2 (09:12→17:02)
[2022-08-23] MEDS: metFORMIN HCL 500 MG TABLET PO (09:12)
[2022-08-23] MEDS: CHOLECALCIFEROL 400 UNITS TABLET (VIT D) PO (09:12)
[2022-08-23] MEDS: LIDOCAINE 5% PATCH 2 PATCH TRANSDERM (09:13)
[2022-08-23 11:40] VITALS: PULSE 68
[2022-08-23] MEDS: DIGOXIN TAB 125 MCG TABLET PO (11:40)
[2022-08-23 11:49] LABS: Glucose Point of Care 175 mg/dl (65-105)
[2022-08-23 16:00] VITALS: BP 111/59; PULSE 88; RESP 16; TEMP 36.4; O2SAT 99
[2022-08-23 16:56] LABS: Glucose Point of Care 138 mg/dl (65-105)
[2022-08-23 17:01] VITALS: PULSE 88
[2022-08-23] MEDS: METOPROLOL SUCCINATE EXT REL 25 MG TABCR PO (17:01)
[2022-08-23] MEDS: traMADol HCL (*CRX) 25 MG TABLET PO (19:47)
[2022-08-23] MEDS: MELATONIN 5 MG TABLET PO (20:29)
[2022-08-23] MEDS: ROSUVASTATIN 10 MG TABLET PO (20:29)
[2022-08-23] MEDS: traZODone HCL 25 MG TABLET PO (20:30)
[2022-08-23 20:31] LABS: Glucose Point of Care 158 mg/dl (65-105)
--- NOTE | 2022-08-23 23:18 | PC.NURSE ---
Pt assisted w/straight cath process. Pt voided 300 mL of clear, pale yellow urine. Pt was educated on trying to not break sterile field w/intervention and verbalized understanding and returned demonstration. Pt requested a sterile urine sample be taken to see if UTI is still present. This RN vocalized this request to Christina JENSENN (charge nurse.) Pt raised up in bed and cooperated w/process. Pt's feet elevated w/2 pillows per request and a pillow placed b/w knees. Bed placed in lowest position; side railsx3; night light on; and call light w/in reach for pt safety.
[2022-08-23 23:22] VITALS: BP 91/44; PULSE 80; RESP 19; TEMP 36.2; O2SAT 97
[2022-08-24 05:06] LABS: Hematocrit 25.5 % (37.0-46.0); Hemoglobin 8.3 g/dL (12.4-15.3); Mean Corpuscular HGB Conc 32.5 g/dL (32.0-36.0); Mean Corpuscular Hemoglobin 31.8 pg (27.0-31.0); Mean Corpuscular Volume 97.7 fL (78.0-102.0); Mean Platelet Volume 9.5 fl (8.7-11.0); Platelet Count Result 102 K/mm3 (150-420); Red Blood Count 2.61 M/mm3 (4.70-6.10); Red Cell Distribution Width 14.1 % (11.6-14.4); White Blood Count 4.9 K/mm3 (4.8-10.8)
[2022-08-24 05:19] LABS: Anion Gap 3 mmol/L (8-16); Blood Urea Nitrogen 11 mg/dL (7-18); Calcium 8.8 mg/dL (8.5-10.1); Carbon Dioxide 28 mmol/L (21-32); Chloride 100 mmol/L (98-108); Estimated CRCL calculation 57 ml/min; Estimated Glomerular Filt Rate > 60; Glucose 153 mg/dL (70-99); Osmolality Calculated 274 mOsm/kg (285-295); Sodium 131 mmol/L (136-145)
[2022-08-24] MEDS: ACETAMINOPHEN 325 MG TABLET 650 MG PO ×2 (07:05→21:27)
[2022-08-24 07:37] VITALS: BP 95/46; PULSE 72; RESP 18; TEMP 36.4; O2SAT 97
[2022-08-24] MEDS: APIXABAN 2.5 MG TABLET 5 MG PO ×2 (09:14→21:26)
[2022-08-24] MEDS: LIDOCAINE 5% PATCH 2 PATCH TRANSDERM (09:15)
[2022-08-24] MEDS: FINASTERIDE 5 MG TABLET PO (09:15)
[2022-08-24] MEDS: PANTOPRAZOLE 40 MG TABLET PO ×2 (09:15→21:27)
[2022-08-24] MEDS: LORATADINE 10 MG TABLET PO (09:15)
[2022-08-24] MEDS: metFORMIN HCL 500 MG TABLET PO (09:15)
[2022-08-24] MEDS: CHOLECALCIFEROL 400 UNITS TABLET (VIT D) PO (09:16)
[2022-08-24] MEDS: SACCHAROMYCES BOULARDII 250 MG CAPSULE PO ×2 (09:16→16:58)
[2022-08-24] MEDS: INSULIN GLARGINE (*BKC) 100 UNITS/ML 15 UNITS SUB-Q (09:27)
[2022-08-24 11:57] LABS: Glucose Point of Care 162 mg/dl (65-105)
[2022-08-24 13:06] VITALS: PULSE 78
[2022-08-24] MEDS: DIGOXIN TAB 125 MCG TABLET PO (13:06)
[2022-08-24 16:45] VITALS: BP 111/47; PULSE 96; RESP 18; TEMP 36.2; O2SAT 97
[2022-08-24 16:58] VITALS: PULSE 96
[2022-08-24] MEDS: METOPROLOL SUCCINATE EXT REL 25 MG TABCR PO (16:58)
[2022-08-24 17:03] LABS: Glucose Point of Care 147 mg/dl (65-105)
[2022-08-24 20:27] LABS: Glucose Point of Care 147 mg/dl (65-105)
[2022-08-24] MEDS: traZODone HCL 25 MG TABLET PO (21:26)
[2022-08-24] MEDS: MELATONIN 5 MG TABLET PO (21:26)
[2022-08-24] MEDS: ROSUVASTATIN 10 MG TABLET PO (21:27)
[2022-08-24 23:03] VITALS: BP 100/50; PULSE 86; RESP 16; TEMP 36.2; O2SAT 95
[2022-08-25 06:37] LABS: Hematocrit 28.5 % (37.0-46.0); Hemoglobin 9.3 g/dL (12.4-15.3); Immature Platelet Fraction Pct 2.2 % (1.0-7.0); Mean Corpuscular HGB Conc 32.6 g/dL (32.0-36.0); Mean Corpuscular Volume 97.9 fL (78.0-102.0); Mean Platelet Volume 9.6 fl (8.7-11.0); Platelet Count Result 126 K/mm3 (150-420); Red Blood Count 2.91 M/mm3 (4.70-6.10)
[2022-08-25 06:43] LABS: Anion Gap 2 mmol/L (8-16); Blood Urea Nitrogen 11 mg/dL (7-18); Calcium 8.7 mg/dL (8.5-10.1); Carbon Dioxide 30 mmol/L (21-32); Chloride 100 mmol/L (98-108); Estimated CRCL calculation 61 ml/min; Estimated Glomerular Filt Rate > 60; Glucose 114 mg/dL (70-99); Osmolality Calculated 274 mOsm/kg (285-295); Potassium 4.1 mmol/L (3.5-5.1); Sodium 132 mmol/L (136-145)
[2022-08-25 07:48] LABS: Glucose Point of Care 119 mg/dl (65-105)
[2022-08-25 07:56] VITALS: BP 101/51; PULSE 64; RESP 14; TEMP 36.4; O2SAT 94
[2022-08-25] MEDS: APIXABAN 2.5 MG TABLET 5 MG PO ×2 (09:25→20:26)
[2022-08-25] MEDS: metFORMIN HCL 500 MG TABLET PO (09:27)
[2022-08-25] MEDS: FINASTERIDE 5 MG TABLET PO (09:27)
[2022-08-25] MEDS: SACCHAROMYCES BOULARDII 250 MG CAPSULE PO ×2 (09:27→17:46)
[2022-08-25] MEDS: LIDOCAINE 5% PATCH 2 PATCH TRANSDERM (09:27)
[2022-08-25] MEDS: LORATADINE 10 MG TABLET PO (09:27)
[2022-08-25] MEDS: SODIUM CHLORIDE 500 MG TABLET PO (09:27)
[2022-08-25] MEDS: PANTOPRAZOLE 40 MG TABLET PO ×2 (09:28→20:26)
[2022-08-25] MEDS: CHOLECALCIFEROL 400 UNITS TABLET (VIT D) PO (09:28)
[2022-08-25] MEDS: INSULIN GLARGINE (*BKC) 100 UNITS/ML 15 UNITS SUB-Q (09:35)
[2022-08-25 11:55] LABS: Glucose Point of Care 159 mg/dl (65-105)
[2022-08-25 13:10] VITALS: PULSE 80
[2022-08-25] MEDS: DIGOXIN TAB 125 MCG TABLET PO (13:10)
[2022-08-25 16:45] VITALS: BP 116/63; PULSE 89; RESP 18; TEMP 36.2; O2SAT 96
[2022-08-25 16:51] LABS: Glucose Point of Care 179 mg/dl (65-105)
[2022-08-25 17:46] VITALS: PULSE 89
[2022-08-25] MEDS: METOPROLOL SUCCINATE EXT REL 25 MG TABCR PO (17:46)
[2022-08-25] MEDS: MELATONIN 5 MG TABLET PO (20:26)
[2022-08-25] MEDS: traZODone HCL 25 MG TABLET PO (20:26)
[2022-08-25] MEDS: ROSUVASTATIN 10 MG TABLET PO (20:26)
[2022-08-25 20:34] LABS: Glucose Point of Care 203 mg/dl (65-105)
[2022-08-25 23:24] VITALS: BP 105/61; PULSE 68; RESP 17; TEMP 36.4; O2SAT 96
[2022-08-26] MEDS: ACETAMINOPHEN 325 MG TABLET 650 MG PO ×2 (04:42→20:28)
[2022-08-26 05:22] LABS: Hematocrit 26.6 % (37.0-46.0); Hemoglobin 8.7 g/dL (12.4-15.3); Mean Corpuscular HGB Conc 32.7 g/dL (32.0-36.0); Mean Corpuscular Hemoglobin 31.9 pg (27.0-31.0); Mean Corpuscular Volume 97.4 fL (78.0-102.0); Mean Platelet Volume 9.3 fl (8.7-11.0); Platelet Count Result 116 K/mm3 (150-420); Red Blood Count 2.73 M/mm3 (4.70-6.10); Red Cell Distribution Width 14.1 % (11.6-14.4); White Blood Count 5.2 K/mm3 (4.8-10.8)
[2022-08-26 05:32] LABS: Anion Gap 5 mmol/L (8-16); Blood Urea Nitrogen 12 mg/dL (7-18); Calcium 8.6 mg/dL (8.5-10.1); Carbon Dioxide 27 mmol/L (21-32); Chloride 99 mmol/L (98-108); Estimated CRCL calculation 56 ml/min; Estimated Glomerular Filt Rate > 60; Glucose 141 mg/dL (70-99); Osmolality Calculated 273 mOsm/kg (285-295); Sodium 131 mmol/L (136-145)
[2022-08-26 07:47] LABS: Glucose Point of Care 120 mg/dl (65-105)
[2022-08-26 07:50] VITALS: BP 98/55; PULSE 82; RESP 16; TEMP 36.4; O2SAT 99
[2022-08-26] MEDS: LIDOCAINE 5% PATCH 2 PATCH TRANSDERM (08:19)
[2022-08-26] MEDS: INSULIN GLARGINE (*BKC) 100 UNITS/ML 15 UNITS SUB-Q (08:20)
[2022-08-26] MEDS: PANTOPRAZOLE 40 MG TABLET PO ×2 (08:22→20:30)
[2022-08-26] MEDS: SACCHAROMYCES BOULARDII 250 MG CAPSULE PO ×2 (08:22→17:07)
[2022-08-26] MEDS: CHOLECALCIFEROL 400 UNITS TABLET (VIT D) PO (08:22)
[2022-08-26] MEDS: APIXABAN 2.5 MG TABLET 5 MG PO ×2 (08:23→20:30)
[2022-08-26] MEDS: FINASTERIDE 5 MG TABLET PO (08:23)
[2022-08-26] MEDS: LORATADINE 10 MG TABLET PO (08:23)
[2022-08-26] MEDS: metFORMIN HCL 500 MG TABLET PO (08:23)
[2022-08-26] MEDS: SODIUM CHLORIDE 500 MG TABLET PO (08:24)
--- NOTE | 2022-08-26 09:17 | PC.NURSE ---
Patient straight cathed self with stand by assist. 350 ml clear yellow urine out.
--- NOTE | 2022-08-26 09:32 | PM.EVENT ---
Event Note Event Note Event Note: Patient oncologist recommend that he follows up with wound care for his sacral breakdown and infectious disease due to reoccurring UTI and sepsis
--- NOTE | 2022-08-26 11:15 | PC.NURSE ---
Wound clinic here to see patient and ordered zinc and foam mepilex for buttocks. Discussed with patient the importance of turning and positioning. Per wound clinic nurses, do not use antifungal cream or barrier spray at this time.
[2022-08-26 11:43] LABS: Glucose Point of Care 130 mg/dl (65-105)
[2022-08-26 11:59] VITALS: PULSE 82
[2022-08-26] MEDS: DIGOXIN TAB 125 MCG TABLET PO (11:59)
--- NOTE | 2022-08-26 14:20 | PC.NURSE ---
Ostomy collection bag changed due to small leak. Patient tolerated well.
[2022-08-26 16:00] VITALS: BP 103/48; PULSE 72; RESP 16; TEMP 36.1; O2SAT 96
[2022-08-26 17:07] VITALS: PULSE 72
[2022-08-26] MEDS: METOPROLOL SUCCINATE EXT REL 25 MG TABCR PO (17:07)
[2022-08-26 17:11] LABS: Glucose Point of Care 128 mg/dl (65-105)
[2022-08-26] MEDS: ROSUVASTATIN 10 MG TABLET PO (20:29)
[2022-08-26] MEDS: MELATONIN 5 MG TABLET PO (20:30)
[2022-08-26] MEDS: traZODone HCL 25 MG TABLET PO (20:30)
[2022-08-26 20:42] LABS: Glucose Point of Care 148 mg/dl (65-105)
[2022-08-27] VITALS: BP 112/51; PULSE 79; RESP 18; TEMP 36.5; O2SAT 95
[2022-08-27 07:38] LABS: Glucose Point of Care 137 mg/dl (65-105)
[2022-08-27 08:00] VITALS: BP 109/52; PULSE 74; RESP 16; TEMP 36.5; O2SAT 96
[2022-08-27] MEDS: INSULIN GLARGINE (*BKC) 100 UNITS/ML 15 UNITS SUB-Q (08:37)
[2022-08-27] MEDS: LIDOCAINE 5% PATCH 2 PATCH TRANSDERM (08:38)
[2022-08-27] MEDS: LORATADINE 10 MG TABLET PO (08:40)
[2022-08-27] MEDS: SODIUM CHLORIDE 500 MG TABLET PO (08:40)
[2022-08-27] MEDS: APIXABAN 2.5 MG TABLET 5 MG PO ×2 (08:41→20:31)
[2022-08-27] MEDS: SACCHAROMYCES BOULARDII 250 MG CAPSULE PO ×2 (08:41→17:12)
[2022-08-27] MEDS: metFORMIN HCL 500 MG TABLET PO (08:41)
[2022-08-27] MEDS: ACETAMINOPHEN 325 MG TABLET 650 MG PO (08:42)
[2022-08-27] MEDS: PANTOPRAZOLE 40 MG TABLET PO ×2 (08:42→20:31)
[2022-08-27] MEDS: FINASTERIDE 5 MG TABLET PO (08:42)
[2022-08-27] MEDS: CHOLECALCIFEROL 400 UNITS TABLET (VIT D) PO (08:42)
--- NOTE | 2022-08-27 10:15 | PC.NURSE ---
Assisted patient with straight cath with 350 ml dark yellow, clear urine out. Patient tolerated well.
[2022-08-27 11:54] LABS: Glucose Point of Care 137 mg/dl (65-105)
[2022-08-27 12:23] VITALS: PULSE 80
[2022-08-27] MEDS: DIGOXIN TAB 125 MCG TABLET PO (12:23)
--- NOTE | 2022-08-27 12:25 | PC.NURSE ---
Quail Farmer discovered patient sliding to the front of his recliner with his buttocks almost on the footrest with the recliner in the reclined position. 2 staff assisted patient back into his seat. Patient could not explain how he got into the position he was in.
--- NOTE | 2022-08-27 13:31 | PC.NURSE ---
Patient's daughter brought in from home, lymphedema boots that patient has used at home since January. Patient currently in bed with boots on and activated.
--- NOTE | 2022-08-27 14:15 | PC.NURSE ---
Lymphedema treatment completed, with little noted change to edema in BLE. Patient in bed on R side at this time.
[2022-08-27 16:00] VITALS: BP 98/48; PULSE 73; RESP 16; TEMP 36.6; O2SAT 97
[2022-08-27 16:39] LABS: Glucose Point of Care 138 mg/dl (65-105)
--- NOTE | 2022-08-27 17:08 | PC.NURSE ---
Development Eng assisted patient to straight cath. 400 ml clear yellow urine out. Patient tolerated well.
[2022-08-27 17:12] VITALS: PULSE 78
[2022-08-27] MEDS: METOPROLOL SUCCINATE EXT REL 25 MG TABCR PO (17:12)
[2022-08-27] MEDS: MELATONIN 5 MG TABLET PO (20:31)
[2022-08-27] MEDS: traZODone HCL 25 MG TABLET PO (20:31)
[2022-08-27] MEDS: ROSUVASTATIN 10 MG TABLET PO (20:31)
[2022-08-27 20:43] LABS: Glucose Point of Care 165 mg/dl (65-105)
[2022-08-28] VITALS: BP 97/41; PULSE 71; RESP 16; TEMP 35.9; O2SAT 96
[2022-08-28 07:37] LABS: Glucose Point of Care 126 mg/dl (65-105)
[2022-08-28 08:00] VITALS: BP 106/58; PULSE 82; RESP 18; TEMP 36.3; O2SAT 98
--- NOTE | 2022-08-28 09:12 | P.PNCROSS_ITS ---
Event Note Event Note Event Note: I was informed that patient st. cath himself three times in the middle of the n ight and wanted to st. cath a 4th time as he has been feeling like he has to urinate. I had a conversation with patient and we will place a indwelling catheter at this time as there is always a chance for infection but continously st. cathing 5-7x a day in introducing way more than I am comfortable with .
[2022-08-28] MEDS: SODIUM CHLORIDE 500 MG TABLET PO (09:22)
[2022-08-28] MEDS: PANTOPRAZOLE 40 MG TABLET PO ×2 (09:22→20:10)
[2022-08-28] MEDS: CHOLECALCIFEROL 400 UNITS TABLET (VIT D) PO (09:22)
[2022-08-28] MEDS: SACCHAROMYCES BOULARDII 250 MG CAPSULE PO ×2 (09:22→17:31)
[2022-08-28] MEDS: APIXABAN 2.5 MG TABLET 5 MG PO ×2 (09:23→20:10)
[2022-08-28] MEDS: metFORMIN HCL 500 MG TABLET PO (09:23)
[2022-08-28] MEDS: FINASTERIDE 5 MG TABLET PO (09:23)
[2022-08-28] MEDS: LORATADINE 10 MG TABLET PO (09:24)
[2022-08-28] MEDS: LIDOCAINE 5% PATCH 2 PATCH TRANSDERM (09:24)
[2022-08-28] MEDS: INSULIN GLARGINE (*BKC) 100 UNITS/ML 15 UNITS SUB-Q (09:29)
[2022-08-28 11:23] VITALS: PULSE 82
[2022-08-28] MEDS: DIGOXIN TAB 125 MCG TABLET PO (11:23)
[2022-08-28 11:28] LABS: Glucose Point of Care 189 mg/dl (65-105)
[2022-08-28] MEDS: FOSFOMYCIN TROMETHAMINE 3 GM PACKET PO (11:35)
--- NOTE | 2022-08-28 15:41 | PC.NURSE ---
Patient refused Power catheter at this time. Stated therapy said they were returning at 3:30 and he did not want to miss therapy. Patient straight cathed self and obtained 475 mls of clear yellow urine.
[2022-08-28 15:44] VITALS: BP 118/64; PULSE 90; RESP 18; TEMP 36.7; O2SAT 98
--- NOTE | 2022-08-28 16:52 | PC.NURSE ---
Power catheter initiated. return of 50 mls of light yellow urine. tolerated procedure well
--- NOTE | 2022-08-28 17:01 | PC.NURSE ---
Patient's daughter noted right forearm is reddened. Removed coban on right wrist around catheter site.
[2022-08-28 17:06] LABS: Glucose Point of Care 179 mg/dl (65-105)
[2022-08-28 17:31] VITALS: PULSE 90
[2022-08-28] MEDS: METOPROLOL SUCCINATE EXT REL 25 MG TABCR PO (17:31)
--- NOTE | 2022-08-28 18:42 | PC.NURSE ---
Lymphedema boots put on per daughters instructions
[2022-08-28] MEDS: ROSUVASTATIN 10 MG TABLET PO (20:10)
[2022-08-28] MEDS: traZODone HCL 25 MG TABLET PO (20:11)
[2022-08-28] MEDS: MELATONIN 5 MG TABLET PO (20:11)
[2022-08-28 20:13] LABS: Glucose Point of Care 158 mg/dl (65-105)
[2022-08-28] MEDS: ACETAMINOPHEN 325 MG TABLET 650 MG PO (20:19)
[2022-08-29] VITALS: BP 112/57; PULSE 62; RESP 20; TEMP 36.4; O2SAT 94
[2022-08-29 07:55] VITALS: BP 106/59; PULSE 80; RESP 18; TEMP 36.2; O2SAT 96
[2022-08-29 08:26] LABS: Glucose Point of Care 133 mg/dl (65-105)
[2022-08-29] MEDS: APIXABAN 2.5 MG TABLET 5 MG PO ×2 (09:40→21:19)
[2022-08-29] MEDS: FINASTERIDE 5 MG TABLET PO (09:40)
[2022-08-29] MEDS: metFORMIN HCL 500 MG TABLET PO (09:40)
[2022-08-29] MEDS: INSULIN GLARGINE (*BKC) 100 UNITS/ML 15 UNITS SUB-Q (09:40)
[2022-08-29] MEDS: PANTOPRAZOLE 40 MG TABLET PO ×2 (09:40→21:20)
[2022-08-29] MEDS: CHOLECALCIFEROL 400 UNITS TABLET (VIT D) PO (09:40)
[2022-08-29] MEDS: LIDOCAINE 5% PATCH 2 PATCH TRANSDERM (09:40)
[2022-08-29] MEDS: LORATADINE 10 MG TABLET PO (09:40)
[2022-08-29] MEDS: SODIUM CHLORIDE 500 MG TABLET PO (09:41)
[2022-08-29] MEDS: SACCHAROMYCES BOULARDII 250 MG CAPSULE PO ×2 (09:41→17:02)
[2022-08-29 11:49] LABS: Glucose Point of Care 172 mg/dl (65-105)
[2022-08-29 13:22] VITALS: PULSE 68
[2022-08-29] MEDS: DIGOXIN TAB 125 MCG TABLET PO (13:22)
[2022-08-29 16:45] VITALS: BP 106/59; PULSE 80; RESP 18; TEMP 36.2; O2SAT 96
[2022-08-29 17:01] LABS: Glucose Point of Care 111 mg/dl (65-105)
[2022-08-29 17:02] VITALS: PULSE 80
[2022-08-29] MEDS: METOPROLOL SUCCINATE EXT REL 25 MG TABCR PO (17:02)
[2022-08-29] MEDS: traZODone HCL 25 MG TABLET PO (21:19)
[2022-08-29] MEDS: MELATONIN 5 MG TABLET PO (21:20)
[2022-08-29] MEDS: ROSUVASTATIN 10 MG TABLET PO (21:20)
[2022-08-29] MEDS: ACETAMINOPHEN 325 MG TABLET 650 MG PO (21:29)
[2022-08-29 21:32] LABS: Glucose Point of Care 121 mg/dl (65-105)
[2022-08-30] VITALS: BP 109/44; PULSE 80; RESP 16; TEMP 36.5; O2SAT 95
[2022-08-30] MEDS: ACETAMINOPHEN 325 MG TABLET 650 MG PO (05:13)
[2022-08-30 07:40] VITALS: BP 103/54; PULSE 71; RESP 18; TEMP 36.3; O2SAT 95
[2022-08-30 08:12] LABS: Glucose Point of Care 124 mg/dl (65-105)
[2022-08-30] MEDS: LIDOCAINE 5% PATCH 2 PATCH TRANSDERM (09:18)
[2022-08-30] MEDS: LORATADINE 10 MG TABLET PO (09:19)
[2022-08-30] MEDS: APIXABAN 2.5 MG TABLET 5 MG PO ×2 (09:19→21:35)
[2022-08-30] MEDS: SACCHAROMYCES BOULARDII 250 MG CAPSULE PO ×2 (09:19→17:08)
[2022-08-30] MEDS: INSULIN GLARGINE (*BKC) 100 UNITS/ML 15 UNITS SUB-Q (09:19)
[2022-08-30] MEDS: CHOLECALCIFEROL 400 UNITS TABLET (VIT D) PO (09:19)
[2022-08-30] MEDS: SODIUM CHLORIDE 500 MG TABLET PO (09:19)
[2022-08-30] MEDS: metFORMIN HCL 500 MG TABLET PO (09:19)
[2022-08-30] MEDS: FINASTERIDE 5 MG TABLET PO (09:19)
[2022-08-30] MEDS: PANTOPRAZOLE 40 MG TABLET PO ×2 (09:19→21:35)
[2022-08-30] MEDS: FOSFOMYCIN TROMETHAMINE 3 GM PACKET PO (12:00)
[2022-08-30 12:04] VITALS: PULSE 70
[2022-08-30] MEDS: DIGOXIN TAB 125 MCG TABLET PO (12:04)
[2022-08-30 12:38] LABS: Glucose Point of Care 149 mg/dl (65-105)
[2022-08-30 16:35] VITALS: BP 110/60; PULSE 74; RESP 18; TEMP 36.3; O2SAT 95
[2022-08-30 17:08] VITALS: PULSE 75
[2022-08-30] MEDS: METOPROLOL SUCCINATE EXT REL 25 MG TABCR PO (17:08)
[2022-08-30 17:10] LABS: Glucose Point of Care 132 mg/dl (65-105)
--- NOTE | 2022-08-30 20:00 | PC.NURSE ---
Inflatable leg compression boots applied and set at low pressure per pt request. Pt is A&O x3 and assists c his care. Pt drained colostomy bag of its contents and cleaned bag. Call avila at pt side.
[2022-08-30] MEDS: ROSUVASTATIN 10 MG TABLET PO (21:34)
[2022-08-30] MEDS: MELATONIN 5 MG TABLET PO (21:34)
[2022-08-30] MEDS: traZODone HCL 25 MG TABLET PO (21:34)
[2022-08-30 21:44] LABS: Glucose Point of Care 185 mg/dl (65-105)
--- NOTE | 2022-08-30 22:09 | PC.NURSE ---
Assisted pt in draining colostomy bag, pt repositioned and lights dimmed, call avila in pt reach.
[2022-08-31] VITALS: BP 100/52; PULSE 86; RESP 20; TEMP 36.3; O2SAT 95
[2022-08-31 08:00] VITALS: BP 98/48; PULSE 71; RESP 16; TEMP 36.6; O2SAT 94
[2022-08-31 08:18] LABS: Glucose Point of Care 116 mg/dl (65-105)
[2022-08-31] MEDS: INSULIN GLARGINE (*BKC) 100 UNITS/ML 15 UNITS SUB-Q (08:41)
[2022-08-31] MEDS: LIDOCAINE 5% PATCH 2 PATCH TRANSDERM (08:43)
[2022-08-31] MEDS: SACCHAROMYCES BOULARDII 250 MG CAPSULE PO ×2 (08:46→17:10)
[2022-08-31] MEDS: SODIUM CHLORIDE 500 MG TABLET PO (08:46)
[2022-08-31] MEDS: APIXABAN 2.5 MG TABLET 5 MG PO ×2 (08:46→20:26)
[2022-08-31] MEDS: LORATADINE 10 MG TABLET PO (08:47)
[2022-08-31] MEDS: FINASTERIDE 5 MG TABLET PO (08:47)
[2022-08-31] MEDS: PANTOPRAZOLE 40 MG TABLET PO ×2 (08:48→20:27)
[2022-08-31] MEDS: metFORMIN HCL 500 MG TABLET PO (08:48)
[2022-08-31] MEDS: CHOLECALCIFEROL 400 UNITS TABLET (VIT D) PO (08:48)
[2022-08-31 11:52] LABS: Glucose Point of Care 184 mg/dl (65-105)
[2022-08-31 12:12] VITALS: PULSE 71
[2022-08-31] MEDS: DIGOXIN TAB 125 MCG TABLET PO (12:12)
[2022-08-31 16:00] VITALS: BP 116/64; PULSE 80; RESP 16; TEMP 36.7; O2SAT 97
[2022-08-31 16:47] LABS: Glucose Point of Care 151 mg/dl (65-105)
[2022-08-31 17:10] VITALS: PULSE 80
[2022-08-31] MEDS: METOPROLOL SUCCINATE EXT REL 25 MG TABCR PO (17:10)
[2022-08-31] MEDS: MELATONIN 5 MG TABLET PO (20:27)
[2022-08-31] MEDS: traZODone HCL 25 MG TABLET PO (20:27)
[2022-08-31] MEDS: ROSUVASTATIN 10 MG TABLET PO (20:28)
[2022-08-31 20:31] LABS: Glucose Point of Care 167 mg/dl (65-105)
[2022-09-01] VITALS: BP 128/63; PULSE 80; RESP 20; TEMP 36.2; O2SAT 99
[2022-09-01 07:41] LABS: Glucose Point of Care 130 mg/dl (65-105)
[2022-09-01 08:00] VITALS: BP 125/55; PULSE 74; RESP 16; TEMP 36.7; O2SAT 96
[2022-09-01] MEDS: INSULIN GLARGINE (*BKC) 100 UNITS/ML 15 UNITS SUB-Q (08:41)
[2022-09-01] MEDS: LIDOCAINE 5% PATCH 2 PATCH TRANSDERM (08:42)
[2022-09-01] MEDS: APIXABAN 2.5 MG TABLET 5 MG PO ×2 (08:45→20:28)
[2022-09-01] MEDS: metFORMIN HCL 500 MG TABLET PO (08:45)
[2022-09-01] MEDS: CHOLECALCIFEROL 400 UNITS TABLET (VIT D) PO (08:46)
[2022-09-01] MEDS: LORATADINE 10 MG TABLET PO (08:46)
[2022-09-01] MEDS: FINASTERIDE 5 MG TABLET PO (08:46)
[2022-09-01] MEDS: PANTOPRAZOLE 40 MG TABLET PO ×2 (08:46→21:32)
[2022-09-01] MEDS: SACCHAROMYCES BOULARDII 250 MG CAPSULE PO ×2 (08:47→17:23)
[2022-09-01] MEDS: SODIUM CHLORIDE 500 MG TABLET PO (08:47)
[2022-09-01 11:21] LABS: Glucose Point of Care 194 mg/dl (65-105)
[2022-09-01] MEDS: FOSFOMYCIN TROMETHAMINE 3 GM PACKET PO (11:27)
[2022-09-01 11:28] VITALS: PULSE 74
[2022-09-01] MEDS: DIGOXIN TAB 125 MCG TABLET PO (11:28)
[2022-09-01 16:00] VITALS: BP 131/74; PULSE 74; RESP 16; TEMP 36.6; O2SAT 98
[2022-09-01 16:18] LABS: Glucose Point of Care 146 mg/dl (65-105)
[2022-09-01 17:23] VITALS: PULSE 74
[2022-09-01] MEDS: METOPROLOL SUCCINATE EXT REL 25 MG TABCR PO (17:23)
--- NOTE | 2022-09-01 18:46 | PC.NURSE ---
Layout Worker attempted to keep patient awake more today, but patient insisted on lying in bed other than during meals. Layout Worker turned television on and patient was able to watch some TV, but at one point turned the volume down and laid there.
[2022-09-01] MEDS: MELATONIN 5 MG TABLET PO (20:27)
[2022-09-01] MEDS: ROSUVASTATIN 10 MG TABLET PO (20:27)
[2022-09-01] MEDS: traZODone HCL 25 MG TABLET PO (20:27)
[2022-09-01 20:33] LABS: Glucose Point of Care 155 mg/dl (65-105)
[2022-09-02] VITALS: BP 116/61; PULSE 89; RESP 18; TEMP 36.6; O2SAT 98
[2022-09-02 07:43] LABS: Glucose Point of Care 130 mg/dl (65-105)
[2022-09-02 07:46] VITALS: BP 123/61; PULSE 85; RESP 16; TEMP 36.4; O2SAT 98
[2022-09-02] MEDS: LIDOCAINE 5% PATCH 2 PATCH TRANSDERM (09:15)
[2022-09-02] MEDS: SACCHAROMYCES BOULARDII 250 MG CAPSULE PO ×2 (09:16→16:54)
[2022-09-02] MEDS: SODIUM CHLORIDE 500 MG TABLET PO (09:17)
[2022-09-02] MEDS: FINASTERIDE 5 MG TABLET PO (09:17)
[2022-09-02] MEDS: LORATADINE 10 MG TABLET PO (09:17)
[2022-09-02] MEDS: metFORMIN HCL 500 MG TABLET PO (09:17)
[2022-09-02] MEDS: PANTOPRAZOLE 40 MG TABLET PO ×2 (09:17→21:30)
[2022-09-02] MEDS: CHOLECALCIFEROL 400 UNITS TABLET (VIT D) PO (09:17)
[2022-09-02] MEDS: APIXABAN 2.5 MG TABLET 5 MG PO ×2 (09:20→09:25)
[2022-09-02] MEDS: INSULIN GLARGINE (*BKC) 100 UNITS/ML 15 UNITS SUB-Q (09:22)
--- NOTE | 2022-09-02 10:04 | PC.NURSE ---
Pt walking giraldo c PT, doing well c PT and then assisted back to chair. Pt given sponge bath and has call avila in reach, voices no c/o at this time.
--- NOTE | 2022-09-02 10:37 | PC.NURSE ---
Wound care nurses in to evaluate pt and instructions received to keep depends off and no mepilex dressing due to moisture. Lubrication of zinc paste was applied per wound care nurses and no covering, wound left open to air, pt lying on Lt side c pillows behind his back. Call avila in pt reach.
--- NOTE | 2022-09-02 11:38 | PC.NURSE ---
BS reading at 170.
[2022-09-02 11:39] LABS: Glucose Point of Care 170 mg/dl (65-105)
[2022-09-02 11:52] VITALS: PULSE 81
[2022-09-02] MEDS: DIGOXIN TAB 125 MCG TABLET PO (11:52)
[2022-09-02 16:00] VITALS: BP 110/41; PULSE 75; RESP 18; TEMP 36.7; O2SAT 96
[2022-09-02 16:23] LABS: Glucose Point of Care 162 mg/dl (65-105)
[2022-09-02 16:54] VITALS: PULSE 72
[2022-09-02] MEDS: METOPROLOL SUCCINATE EXT REL 25 MG TABCR PO (16:54)
[2022-09-02] MEDS: MELATONIN 5 MG TABLET PO (21:29)
[2022-09-02] MEDS: ROSUVASTATIN 10 MG TABLET PO (21:29)
[2022-09-02] MEDS: traZODone HCL 25 MG TABLET PO (21:29)
[2022-09-03] VITALS: BP 109/56; PULSE 77; RESP 18; TEMP 36.6; O2SAT 93
[2022-09-03 00:23] LABS: Glucose Point of Care 162 mg/dl (65-105)
[2022-09-03 07:59] LABS: Glucose Point of Care 107 mg/dl (65-105)
[2022-09-03 08:00] VITALS: BP 107/54; PULSE 90; RESP 18; TEMP 36.6; O2SAT 97
[2022-09-03] MEDS: CHOLECALCIFEROL 400 UNITS TABLET (VIT D) PO (08:30)
[2022-09-03] MEDS: APIXABAN 2.5 MG TABLET 5 MG PO ×2 (08:30→21:11)
[2022-09-03] MEDS: FINASTERIDE 5 MG TABLET PO (08:31)
[2022-09-03] MEDS: LIDOCAINE 5% PATCH 2 PATCH TRANSDERM (08:31)
[2022-09-03] MEDS: metFORMIN HCL 500 MG TABLET PO (08:31)
[2022-09-03] MEDS: LORATADINE 10 MG TABLET PO (08:31)
[2022-09-03] MEDS: PANTOPRAZOLE 40 MG TABLET PO ×2 (08:32→21:12)
[2022-09-03] MEDS: SODIUM CHLORIDE 500 MG TABLET PO (08:32)
[2022-09-03] MEDS: SACCHAROMYCES BOULARDII 250 MG CAPSULE PO ×2 (08:32→16:53)
[2022-09-03] MEDS: INSULIN GLARGINE (*BKC) 100 UNITS/ML 15 UNITS SUB-Q (08:42)
[2022-09-03 11:33] LABS: Glucose Point of Care 150 mg/dl (65-105)
[2022-09-03 12:33] VITALS: PULSE 80
[2022-09-03] MEDS: DIGOXIN TAB 125 MCG TABLET PO (12:33)
[2022-09-03 16:00] VITALS: BP 107/54; PULSE 80; RESP 18; TEMP 36.2; O2SAT 96
[2022-09-03] MEDS: METOPROLOL SUCCINATE EXT REL 25 MG TABCR PO (16:53)
[2022-09-03 16:56] LABS: Glucose Point of Care 158 mg/dl (65-105)
[2022-09-03] MEDS: MELATONIN 5 MG TABLET PO (21:11)
[2022-09-03] MEDS: traZODone HCL 25 MG TABLET PO (21:12)
[2022-09-03] MEDS: ROSUVASTATIN 10 MG TABLET PO (21:12)
[2022-09-03 21:27] LABS: Glucose Point of Care 136 mg/dl (65-105)
[2022-09-03 23:01] VITALS: BP 111/61; PULSE 83; RESP 16; TEMP 36.4; O2SAT 96
[2022-09-04 07:49] LABS: Glucose Point of Care 140 mg/dl (65-105)
[2022-09-04 08:00] VITALS: BP 112/56; PULSE 76; RESP 14; TEMP 36.6; O2SAT 97
[2022-09-04] MEDS: DICLOFENAC SODIUM 1% 100 GM GEL (*BKC) 1 APPLIC TOPICAL ×4 (09:10→21:26)
[2022-09-04] MEDS: INSULIN GLARGINE (*BKC) 100 UNITS/ML 15 UNITS SUB-Q (09:11)
--- NOTE | 2022-09-04 09:15 | P.PN_ITS ---
Progress Note: A&P Assessment and Plan (1) Rectal cancer: Code(s): C20 - Malignant neoplasm of rectum Status: Acute Assessment and Plan: * secondary to rectal Ca * monitor for S/S of bleeding, hgb 9.8>9.8>8.7 * patient has appointment today (2) Diabetes: Code(s): E11.9 - Type 2 diabetes mellitus without complications Status: Acute Assessment and Plan: * Blood sugar stable * continue Accu-Cheks with sliding scale and hypoglycemic protocol * Will adjust medication as needed * A1C 6.4 on 07/08/2022 (3) Hypertension: Code(s): I10 - Essential (primary) hypertension Status: Acute Assessment and Plan: * Better controlled * Previous provider spoke with financial coach who recommends that patient take beta-meghna and digoxin later in the day when his blood pressure is not hypotensive. Patient will take metoprolol at 5:00 PM and digoxin at 12:00 noon. We will closely monitor patient. * Patient quickly goes into A. fib without his beta-meghna * Her previous provider patient financial coach recommended that we give patient normal saline at 75 mL for 24 hours. Completed (4) Anemia: Code(s): D64.9 - Anemia, unspecified Status: Acute Assessment and Plan: * Stable * Acute on chronic anemia * possible secondary to rectal bleeding due to rectal cancer * Trend H&H will transfuse <7.0 (5) History of urinary self-catheterization: Code(s): Z78.9 - Other specified health status Status: Acute Assessment and Plan: * Patient with a continuous Power * Unsure patient was contaminating catheter patient also has a ostomy bag (6) Weakness: Code(s): R53.1 - Weakness Status: Acute Assessment and Plan: ? Exhibit tolerance during physical activity as evidenced by a normal fluctuation of vital signs during physical activity. ? Patient will be ability to perform required activities of daily living. ? Provide appropriate nutrition for healing and strength. ? Use appropriate to prevent falls. ? Continue physical therapy/occupational therapy. (7) Atrial fibrillation: Qualifiers: Atrial fibrillation type: unspecified Qualified Code(s): I48.91 - Unspecified atrial fibrillation Code(s): I48.91 - Unspecified atrial fibrillation Status: Acute Assessment and Plan: * Rate controlled * continue home apixaban * continue beta meghna * hold if SBP is 90 or less (8) Depression: Code(s): F32.9 - Major depressive disorder, single episode, unspecified Status: Acute Assessment and Plan: * continue home medication (9) Acquired thrombocytopenia: Code(s): D69.6 - Thrombocytopenia, unspecified Status: Acute Assessment and Plan: * PLt 105> 103 * possible secondary to CA (10) UTI (urinary tract infection): Code(s): N39.0 - Urinary tract infection, site not specified Status: Acute Assessment and Plan: * Chronic * Patient has had multiple hospitalizations due to urosepsis * Patient will discharge home with antibiotic for preventative measure * Patient currently on imipenemX7 days Possible reoccurring UTI * UA culture from 08/18/2022 without growth * wbc 13.1>4.9 * Spoke with pharmacy we will continueImipenem x7 days then Transition to fosfomycin For 1 week 3 times a week,Afterward patient was discharged on amoxicillin 500 mg every 12 hours. * Per previous provider notesID pharmacist joel
--- NOTE | 2022-09-04 09:15 | WPDPN ---
Progress Note: A&P Assessment and Plan (1) Rectal cancer: Code(s): C20 - Malignant neoplasm of rectum Status: Acute Assessment and Plan: secondary to rectal Ca monitor for S/S of bleeding, hgb 9.8>9.8>8.7 patient has appointment today (2) Diabetes: Code(s): E11.9 - Type 2 diabetes mellitus without complications Status: Acute Assessment and Plan: Blood sugar stable continue Accu-Cheks with sliding scale and hypoglycemic protocol Will adjust medication as needed A1C 6.4 on 07/08/2022 (3) Hypertension: Code(s): I10 - Essential (primary) hypertension Status: Acute Assessment and Plan: Better controlled Previous provider spoke with steward/stewardess third class who recommends that patient take beta-meghna and digoxin later in the day when his blood pressure is not hypotensive. Patient will take metoprolol at 5:00 PM and digoxin at 12:00 noon. We will closely monitor patient. Patient quickly goes into A. fib without his beta-meghna Her previous provider patient steward/stewardess third class recommended that we give patient normal saline at 75 mL for 24 hours. Completed (4) Anemia: Code(s): D64.9 - Anemia, unspecified Status: Acute Assessment and Plan: Stable Acute on chronic anemia possible secondary to rectal bleeding due to rectal cancer Trend H&H will transfuse <7.0 (5) History of urinary self-catheterization: Code(s): Z78.9 - Other specified health status Status: Acute Assessment and Plan: Patient with a continuous Power Unsure patient was contaminating catheter patient also has a ostomy bag (6) Weakness: Code(s): R53.1 - Weakness Status: Acute Assessment and Plan: ? Exhibit tolerance during physical activity as evidenced by a normal fluctuation of vital signs during physical activity. ? Patient will be ability to perform required activities of daily living. ? Provide appropriate nutrition for healing and strength. ? Use appropriate to prevent falls. ? Continue physical therapy/occupational therapy. (7) Atrial fibrillation: Qualifiers: Atrial fibrillation type: unspecified Qualified Code(s): I48.91 - Unspecified atrial fibrillation Code(s): I48.91 - Unspecified atrial fibrillation Status: Acute Assessment and Plan: Rate controlled continue home apixaban continue beta meghna hold if SBP is 90 or less (8) Depression: Code(s): F32.9 - Major depressive disorder, single episode, unspecified Status: Acute Assessment and Plan: continue home medication (9) Acquired thrombocytopenia: Code(s): D69.6 - Thrombocytopenia, unspecified Status: Acute Assessment and Plan: PLt 105> 103 possible secondary to CA (10) UTI (urinary tract infection): Code(s): N39.0 - Urinary tract infection, site not specified Status: Acute Assessment and Plan: Chronic Patient has had multiple hospitalizations due to urosepsis Patient will discharge home with antibiotic for preventative measure Patient currently on imipenemX7 days Possible reoccurring UTI UA culture from 08/18/2022 without growth wbc 13.1>4.9 Spoke with pharmacy we will continueImipenem x7 days then Transition to fosfomycin For 1 week 3 times a week,Afterward patient was discharged on amoxicillin 500 mg every 12 hours. Per previous provider notesID pharmacist recommends fosfomycinEvery 48 hours x3 more doses (11) Dysphagia: Code(s): R13.10 - Dysphagia, unspecified Status: Acute Assessment and Plan: EGD with Dilatation for dysphagia completed within the last three month. Exact date unknown. Speech therapy consulted for bedside swallow eval Patient currently on nectar thickened liquids (12) Rectal bleeding: Code(s): K62.5 - Hemorrhage of anus and rectum Status: Acute Assessment and Plan: Secondary to anal squamous cell carci
[2022-09-04] MEDS: SODIUM CHLORIDE 500 MG TABLET PO (09:39)
[2022-09-04] MEDS: SIMETHICONE 80 MG TAB.CHEW PO ×4 (09:39→21:01)
[2022-09-04] MEDS: SACCHAROMYCES BOULARDII 250 MG CAPSULE PO ×2 (09:39→17:51)
[2022-09-04] MEDS: APIXABAN 2.5 MG TABLET 5 MG PO ×2 (09:39→21:01)
[2022-09-04] MEDS: LIDOCAINE 5% PATCH 2 PATCH TRANSDERM (09:39)
[2022-09-04] MEDS: metFORMIN HCL 500 MG TABLET PO (09:40)
[2022-09-04] MEDS: LORATADINE 10 MG TABLET PO (09:40)
[2022-09-04] MEDS: PANTOPRAZOLE 40 MG TABLET PO ×2 (09:40→21:03)
[2022-09-04] MEDS: CHOLECALCIFEROL 400 UNITS TABLET (VIT D) PO (09:40)
[2022-09-04] MEDS: FINASTERIDE 5 MG TABLET PO (09:40)
[2022-09-04 12:00] LABS: Glucose Point of Care 173 mg/dl (65-105)
[2022-09-04 12:05] VITALS: PULSE 78
[2022-09-04] MEDS: DIGOXIN TAB 125 MCG TABLET PO (12:05)
--- NOTE | 2022-09-04 15:00 | PC.NURSE ---
Report received from previous nurse, therapy in with patient, therapist reports patient had large amount of blood and clots on the pad he was sitting on, nurse Karla reports that patient has also been feeling fatigued . Charge nurse made aware and request made to obtain CBC to evaluate H&H. Awaiting orders.
[2022-09-04 16:00] VITALS: BP 104/48; PULSE 73; RESP 16; TEMP 36.3; O2SAT 96
[2022-09-04 17:05] LABS: Glucose Point of Care 135 mg/dl (65-105)
[2022-09-04 17:51] VITALS: PULSE 70
[2022-09-04] MEDS: METOPROLOL SUCCINATE EXT REL 25 MG TABCR PO (17:51)
[2022-09-04] MEDS: traZODone HCL 25 MG TABLET PO (21:03)
[2022-09-04] MEDS: ROSUVASTATIN 10 MG TABLET PO (21:03)
[2022-09-04] MEDS: MELATONIN 5 MG TABLET PO (21:04)
[2022-09-04 21:16] LABS: Glucose Point of Care 180 mg/dl (65-105)
--- NOTE | 2022-09-04 21:49 | PC.NURSE ---
Viktoriya King, Hospitalist, notified of blood sugar level of 301 @ HS. New order received to give Lispro 6 untis now x1.
[2022-09-05] VITALS: BP 134/65; PULSE 74; RESP 16; TEMP 36.6; O2SAT 97
[2022-09-05] MEDS: ACETAMINOPHEN 325 MG TABLET 650 MG PO (04:14)
[2022-09-05 05:19] LABS: Hematocrit 28.4 % (37.0-46.0); Immature Platelet Fraction Pct 1.8 % (1.0-7.0); Mean Corpuscular HGB Conc 31.7 g/dL (32.0-36.0); Mean Corpuscular Hemoglobin 31.6 pg (27.0-31.0); Mean Corpuscular Volume 99.6 fL (78.0-102.0); Mean Platelet Volume 9.7 fl (8.7-11.0); Platelet Count Result 100 K/mm3 (150-420); Red Blood Count 2.85 M/mm3 (4.70-6.10); Red Cell Distribution Width 14.6 % (11.6-14.4)
[2022-09-05 05:32] LABS: Anion Gap 5 mmol/L (8-16); Blood Urea Nitrogen 18 mg/dL (7-18); Calcium 9.1 mg/dL (8.5-10.1); Carbon Dioxide 28 mmol/L (21-32); Chloride 99 mmol/L (98-108); Estimated CRCL calculation 56 ml/min; Estimated Glomerular Filt Rate > 60; Glucose 155 mg/dL (70-99); Osmolality Calculated 278 mOsm/kg (285-295); Potassium 4.5 mmol/L (3.5-5.1); Sodium 132 mmol/L (136-145)
[2022-09-05 07:26] LABS: Glucose Point of Care 119 mg/dl (65-105)
[2022-09-05 08:00] VITALS: BP 137/68; PULSE 64; RESP 16; TEMP 36.8; O2SAT 96
[2022-09-05] MEDS: INSULIN GLARGINE (*BKC) 100 UNITS/ML 15 UNITS SUB-Q (08:22)
[2022-09-05] MEDS: LIDOCAINE 5% PATCH 2 PATCH TRANSDERM (08:24)
[2022-09-05] MEDS: DICLOFENAC SODIUM 1% 100 GM GEL (*BKC) 1 APPLIC TOPICAL ×4 (08:26→21:13)
[2022-09-05] MEDS: SODIUM CHLORIDE 500 MG TABLET PO (08:27)
[2022-09-05] MEDS: PANTOPRAZOLE 40 MG TABLET PO ×2 (08:27→21:14)
[2022-09-05] MEDS: APIXABAN 2.5 MG TABLET 5 MG PO ×2 (08:28→21:12)
[2022-09-05] MEDS: LORATADINE 10 MG TABLET PO (08:28)
[2022-09-05] MEDS: SACCHAROMYCES BOULARDII 250 MG CAPSULE PO ×2 (08:29→17:13)
[2022-09-05] MEDS: SIMETHICONE 80 MG TAB.CHEW PO ×4 (08:29→21:14)
[2022-09-05] MEDS: metFORMIN HCL 500 MG TABLET PO (08:29)
[2022-09-05] MEDS: CHOLECALCIFEROL 400 UNITS TABLET (VIT D) PO (08:30)
[2022-09-05] MEDS: FINASTERIDE 5 MG TABLET PO (08:30)
[2022-09-05 11:45] LABS: Glucose Point of Care 176 mg/dl (65-105)
[2022-09-05 11:47] VITALS: PULSE 74
[2022-09-05] MEDS: DIGOXIN TAB 125 MCG TABLET PO (11:47)
[2022-09-05 16:00] VITALS: BP 129/59; PULSE 67; RESP 16; TEMP 36.1; O2SAT 98
[2022-09-05 16:36] LABS: Glucose Point of Care 144 mg/dl (65-105)
[2022-09-05 17:14] VITALS: PULSE 76
[2022-09-05] MEDS: METOPROLOL SUCCINATE EXT REL 25 MG TABCR PO (17:14)
[2022-09-05] MEDS: ROSUVASTATIN 10 MG TABLET PO (21:13)
[2022-09-05] MEDS: MELATONIN 5 MG TABLET PO (21:13)
[2022-09-05] MEDS: traZODone HCL 25 MG TABLET PO (21:14)
[2022-09-05 21:24] LABS: Glucose Point of Care 159 mg/dl (65-105)
[2022-09-06] VITALS: BP 121/56; PULSE 78; RESP 18; TEMP 36.5; O2SAT 98
[2022-09-06 07:35] LABS: Glucose Point of Care 118 mg/dl (65-105)
[2022-09-06 08:00] VITALS: BP 132/67; PULSE 75; RESP 16; TEMP 36.6; O2SAT 98
[2022-09-06] MEDS: INSULIN GLARGINE (*BKC) 100 UNITS/ML 15 UNITS SUB-Q (08:24)
[2022-09-06] MEDS: SIMETHICONE 80 MG TAB.CHEW PO ×4 (08:25→21:26)
[2022-09-06] MEDS: SODIUM CHLORIDE 500 MG TABLET PO (08:25)
[2022-09-06] MEDS: APIXABAN 2.5 MG TABLET 5 MG PO ×2 (08:26→21:27)
[2022-09-06] MEDS: SACCHAROMYCES BOULARDII 250 MG CAPSULE PO ×2 (08:26→17:11)
[2022-09-06] MEDS: metFORMIN HCL 500 MG TABLET PO (08:26)
[2022-09-06] MEDS: FINASTERIDE 5 MG TABLET PO (08:26)
[2022-09-06] MEDS: LORATADINE 10 MG TABLET PO (08:26)
[2022-09-06] MEDS: LIDOCAINE 5% PATCH 2 PATCH TRANSDERM (08:27)
[2022-09-06] MEDS: CHOLECALCIFEROL 400 UNITS TABLET (VIT D) PO (08:27)
[2022-09-06] MEDS: PANTOPRAZOLE 40 MG TABLET PO ×2 (08:27→21:28)
[2022-09-06] MEDS: DICLOFENAC SODIUM 1% 100 GM GEL (*BKC) 1 APPLIC TOPICAL ×4 (08:28→21:29)
--- NOTE | 2022-09-06 10:08 | PC.NURSE ---
Patient has had multiple complaints related to care today. Patient stated that he believed he had been left up in his chair for more than 2 and a half hours, but software writer witnessed patient on bedside getting his morning bath at 0730 and then after his bath was assisted to his chair for breakfast and medication administration. After medication administration and breakfast PT worked with patient and took him for a walk and did exercises. It was 0930 at the time that patient complained. Patient stated that he is not supposed to sit at all, but is made to get up for his meals. There are no restrictions on patient as far as sitting. PT and software writer explained that this is part of his therapy. Patient complained that he was made to bathe himself this morning. PT and software writer explained that this is also part of his therapy. Patient did not wish to turn to his side in bed. Golf Caddy reminded him that he c/o his bottom hurting, and that it would be best to lay side to side. Patient reluctantly agreed. Patient called nurses station and asked about TV channels. A TV guide was given to patient and patient said, it's like reading a Italian newspaper . Golf Caddy stayed in room and went through the channels on the television with patient and attempted to find something for patient to watch. Patient in bed with eyes closed on his L side at this time.
[2022-09-06 11:57] VITALS: PULSE 65
[2022-09-06] MEDS: DIGOXIN TAB 125 MCG TABLET PO (11:57)
[2022-09-06 12:02] LABS: Glucose Point of Care 157 mg/dl (65-105)
[2022-09-06 14:19] LABS: Add Urine Microscopic? YES; Appearance Urine Slightly Cloudy (Clear); Bilirubin Urine Negative (Negative); Blood Urine 3+ (Negative); Color Urine Yellow (Yellow); Glucose Urine UA Negative (Negative); Ketones Urine Trace (Negative); Leukocyte Esterase Ur 2+ LEU/UL (Negative); Nitrate Urine Positive (Negative); Protein Urine 2+ (Negative); Specific Grav Ur 1.025 (1.010-1.020); Urobilinogen Urine 0.2 mg/dL (0.2-1.0)
[2022-09-06 14:24] LABS: Bacteria Urine 1+ /hpf; Squamous Epithelial Cell Urine Rare /hpf (Few); WBC Urine 16-20 /hpf (0-3)
[2022-09-06] MEDS: AMOXICILLIN/CLAVULANATE K 875-125 MG TAB 1 TABLET PO ×2 (15:08→21:27)
[2022-09-06 16:00] VITALS: BP 119/57; PULSE 79; RESP 16; TEMP 36.4; O2SAT 98
[2022-09-06 16:32] LABS: Glucose Point of Care 119 mg/dl (65-105)
[2022-09-06] MEDS: ACETAMINOPHEN 325 MG TABLET 650 MG PO (17:11)
[2022-09-06 17:12] VITALS: PULSE 74
[2022-09-06] MEDS: METOPROLOL SUCCINATE EXT REL 25 MG TABCR PO (17:12)
[2022-09-06] MEDS: MELATONIN 5 MG TABLET PO (21:28)
[2022-09-06] MEDS: ROSUVASTATIN 10 MG TABLET PO (21:28)
[2022-09-06] MEDS: traZODone HCL 25 MG TABLET PO (21:29)
[2022-09-06 22:12] LABS: Glucose Point of Care 131 mg/dl (65-105)
[2022-09-07] VITALS: BP 118/58; PULSE 81; RESP 15; TEMP 36.4; O2SAT 97
--- NOTE | 2022-09-07 05:33 | P.DS_ITS ---
DS: Admitting Diagnosis Discharge Date 09/07/2022 Admitting Diagnosis weakness rehab DS: Discharge Diagnosis Discharge Diagnosis (1) Rectal cancer: Code(s): C20 - Malignant neoplasm of rectum Status: Acute Assessment and Plan: * secondary to rectal Ca * monitor for S/S of bleeding, hgb 9.8>9.8>8.7 * (2) Diabetes: Code(s): E11.9 - Type 2 diabetes mellitus without complications Status: Acute Assessment and Plan: * Blood sugar stable * Continue home medication * A1C 6.4 on 07/08/2022 (3) Hypertension: Code(s): I10 - Essential (primary) hypertension Status: Acute Assessment and Plan: * Better controlled * Previous provider spoke with neuropsychology director who recommends that patient take beta-meghna and digoxin later in the day when his blood pressure is not hypotensive. Patient will take metoprolol at 5:00 PM and digoxin at 12:00 noon. We will closely monitor patient. * Patient quickly goes into A. fib without his beta-meghna * Her previous provider patient neuropsychology director recommended that we give patient normal saline at 75 mL for 24 hours. Completed * Patient will discharge home with home medication and adjustment with time (4) Anemia: Code(s): D64.9 - Anemia, unspecified Status: Acute Assessment and Plan: * Stable * Acute on chronic anemia * possible secondary to rectal bleeding due to rectal cancer * Trend H&H will transfuse <7.0 (5) History of urinary self-catheterization: Code(s): Z78.9 - Other specified health status Status: Acute Assessment and Plan: * Patient with a continuous Power * Unsure patient was contaminating catheter patient also has a ostomy bag * spoke with patient's urology agree that Patient Should Go Home with a indwelling Power versus self-catheterization * It was reported by nursing staff the patient did not use a sterile technique well catheterizating (6) Weakness: Code(s): R53.1 - Weakness Status: Acute Assessment and Plan: ? Exhibit tolerance during physical activity as evidenced by a normal fluctuation of vital signs during physical activity. ? Patient will be ability to perform required activities of daily living. ? Provide appropriate nutrition for healing and strength. ? Use appropriate to prevent falls. ? Continue physical therapy/occupational therapy. (7) Atrial fibrillation: Qualifiers: Atrial fibrillation type: unspecified Qualified Code(s): I48.91 - Unspecified atrial fibrillation Code(s): I48.91 - Unspecified atrial fibrillation Status: Acute Assessment and Plan: * Rate controlled * continue home apixaban * continue beta meghna * Follow-up with cardiology (8) Depression: Code(s): F32.9 - Major depressive disorder, single episode, unspecified Status: Acute Assessment and Plan: * continue home medication (9) Acquired thrombocytopenia: Code(s): D69.6 - Thrombocytopenia, unspecified Status: Acute Assessment and Plan: * PLt 105> 103 * possible secondary to CA (10) UTI (urinary tract infection): Code(s): N39.0 - Urinary tract infection, site not specified Status: Acute Assessment and Plan: * Chronic * Patient has had multiple hospitalizations due to urosepsis * Patient will discharge home with antibiotic for preventative measure * Patient currently on imipenemX7 days Possible reoc
--- NOTE | 2022-09-07 05:33 | PM.DS ---
DS: Admitting Diagnosis Discharge Date 09/07/2022 Admitting Diagnosis weakness rehab DS: Discharge Diagnosis Discharge Diagnosis (1) Rectal cancer: Code(s): C20 - Malignant neoplasm of rectum Status: Acute Assessment and Plan: secondary to rectal Ca monitor for S/S of bleeding, hgb 9.8>9.8>8.7 (2) Diabetes: Code(s): E11.9 - Type 2 diabetes mellitus without complications Status: Acute Assessment and Plan: Blood sugar stable Continue home medication A1C 6.4 on 07/08/2022 (3) Hypertension: Code(s): I10 - Essential (primary) hypertension Status: Acute Assessment and Plan: Better controlled Previous provider spoke with milieu counselor who recommends that patient take beta-meghna and digoxin later in the day when his blood pressure is not hypotensive. Patient will take metoprolol at 5:00 PM and digoxin at 12:00 noon. We will closely monitor patient. Patient quickly goes into A. fib without his beta-meghna Her previous provider patient milieu counselor recommended that we give patient normal saline at 75 mL for 24 hours. Completed Patient will discharge home with home medication and adjustment with time (4) Anemia: Code(s): D64.9 - Anemia, unspecified Status: Acute Assessment and Plan: Stable Acute on chronic anemia possible secondary to rectal bleeding due to rectal cancer Trend H&H will transfuse <7.0 (5) History of urinary self-catheterization: Code(s): Z78.9 - Other specified health status Status: Acute Assessment and Plan: Patient with a continuous Power Unsure patient was contaminating catheter patient also has a ostomy bag spoke with patient's urology agree that Patient Should Go Home with a indwelling Power versus self-catheterization It was reported by nursing staff the patient did not use a sterile technique well catheterizating (6) Weakness: Code(s): R53.1 - Weakness Status: Acute Assessment and Plan: ? Exhibit tolerance during physical activity as evidenced by a normal fluctuation of vital signs during physical activity. ? Patient will be ability to perform required activities of daily living. ? Provide appropriate nutrition for healing and strength. ? Use appropriate to prevent falls. ? Continue physical therapy/occupational therapy. (7) Atrial fibrillation: Qualifiers: Atrial fibrillation type: unspecified Qualified Code(s): I48.91 - Unspecified atrial fibrillation Code(s): I48.91 - Unspecified atrial fibrillation Status: Acute Assessment and Plan: Rate controlled continue home apixaban continue beta meghna Follow-up with cardiology (8) Depression: Code(s): F32.9 - Major depressive disorder, single episode, unspecified Status: Acute Assessment and Plan: continue home medication (9) Acquired thrombocytopenia: Code(s): D69.6 - Thrombocytopenia, unspecified Status: Acute Assessment and Plan: PLt 105> 103 possible secondary to CA (10) UTI (urinary tract infection): Code(s): N39.0 - Urinary tract infection, site not specified Status: Acute Assessment and Plan: Chronic Patient has had multiple hospitalizations due to urosepsis Patient will discharge home with antibiotic for preventative measure Patient currently on imipenemX7 days Possible reoccurring UTI UA culture from 08/18/2022 without growth wbc 13.1>4.9 Spoke with pharmacy we will continueImipenem x7 days then Transition to fosfomycin For 1 week 3 times a week,Afterward patient was discharged on amoxicillin 500 mg every 12 hours. Per previous provider notesID pharmacist recommends fosfomycinEvery 48 hours x3 more doses Discharge home with Amoxicillin (11) Dysphagia: Code(s): R13.10 - Dysphagia, unspecified Status: Acute Assessment and Plan: EGD with Dilatation for dysphagia completed
[2022-09-07 08:00] VITALS: BP 118/60; PULSE 81; RESP 16; TEMP 36.4; O2SAT 97
[2022-09-07 08:16] LABS: Glucose Point of Care 177 mg/dl (65-105)
[2022-09-07] MEDS: AMOXICILLIN/CLAVULANATE K 875-125 MG TAB 1 TABLET PO (08:19)
[2022-09-07] MEDS: metFORMIN HCL 500 MG TABLET PO (09:15)
[2022-09-07] MEDS: LIDOCAINE 5% PATCH 2 PATCH TRANSDERM (09:18)
[2022-09-07] MEDS: APIXABAN 2.5 MG TABLET 5 MG PO (09:20)
[2022-09-07] MEDS: SACCHAROMYCES BOULARDII 250 MG CAPSULE PO (09:20)
[2022-09-07] MEDS: SIMETHICONE 80 MG TAB.CHEW PO ×2 (09:21→13:39)
[2022-09-07] MEDS: LORATADINE 10 MG TABLET PO (09:21)
[2022-09-07] MEDS: FINASTERIDE 5 MG TABLET PO (09:22)
[2022-09-07] MEDS: CHOLECALCIFEROL 400 UNITS TABLET (VIT D) PO (09:22)
[2022-09-07] MEDS: PANTOPRAZOLE 40 MG TABLET PO (09:23)
[2022-09-07] MEDS: DICLOFENAC SODIUM 1% 100 GM GEL (*BKC) 1 APPLIC TOPICAL ×2 (09:27→13:39)
[2022-09-07] MEDS: SODIUM CHLORIDE 500 MG TABLET PO (10:19)
[2022-09-07 11:56] LABS: Glucose Point of Care 175 mg/dl (65-105)
[2022-09-07] MEDS: INSULIN GLARGINE (*BKC) 100 UNITS/ML 15 UNITS SUB-Q (12:27)
[2022-09-07 12:30] VITALS: PULSE 81
[2022-09-07] MEDS: DIGOXIN TAB 125 MCG TABLET PO (12:30)
--- NOTE | 2022-09-07 13:50 | PC.NURSE ---
Daughter Kaye called to notify that patient is ready to be discharge. No answer, message left for daughter. Patient aware this nurse attempted to call daughter.
--- NOTE | 2022-09-07 15:35 | PC.NURSE ---
Addendum entered by Natalie Echavarria RN 09/07/22 19:12: Oseguera catheter left in place due to retention per GOVERNMENT CLERK order. PMD will follow care of oseguera. Original Note: Patient discharged home. Accompanied to front door via wheelchair by nurse Acosta. Patient left via private vehicle with son-in-law. Sent home with discharge paper work. Instructions Reviewed with patient and son by Nurse Acosta. Discharge instructions faxed to [facility] at discharge.
--- NOTE | 2022-09-10 10:55 | PC.NURSE ---
Daughter states patient has been admitted at another hospital for the continued UTI.
== END 2022-09-07 15:30 | disposition home health service (06) | DRG 948 ==
PROVIDERS: Nurse Practitioner; Nurse Practitioner Family; Admitting Provider Internal Medicine; PCP Internal Medicine; Visit Provider Internal Medicine
DX: R53.1 Weakness (principal); I48.20 Chronic atrial fibrillation, unspecified; N39.0 Urinary tract infection, site not specified; T83.518A Infection and inflammatory reaction due to other urinary catheter, initial encounter; L89.312 Pressure ulcer of right buttock, stage 2; I25.10 Atherosclerotic heart disease of native coronary artery without angina pectoris; I10 Essential (primary) hypertension; C61 Malignant neoplasm of prostate; E78.5 Hyperlipidemia, unspecified; E11.42 Type 2 diabetes mellitus with diabetic polyneuropathy; D69.6 Thrombocytopenia, unspecified; D64.9 Anemia, unspecified; M48.00 Spinal stenosis, site unspecified; R13.10 Dysphagia, unspecified; R33.9 Retention of urine, unspecified; F32.9 Major depressive disorder, single episode, unspecified; Z96.659 Presence of unspecified artificial knee joint; Z93.3 Colostomy status; Z85.048 Personal history of other malignant neoplasm of rectum, rectosigmoid junction, and anus; Z79.4 Long term (current) use of insulin; Z79.84 Long term (current) use of oral hypoglycemic drugs; Z79.01 Long term (current) use of anticoagulants; Z95.5 Presence of coronary angioplasty implant and graft
CPT/HCPCS: 36415; 80048; 80053; 80162; 81001; 81003; 82948; 85025; 85027; 85055; 87040; 87077; 87086; 87088; 87186; 92526; 92610; 97110; 97112; 97116; 97161; 97165; 97530; 97535; 99214; A9270; G0463; J0743; J1815; J7030

== ENCOUNTER 2022-09-02 10:36 | Outpatient (RCR) | payer MEDICARE, SELFPAY | END 2022-10-02 23:59 | disposition home or self-care (01) | LOC: CHSWOUND 10:36 | PROVIDERS: PCP Internal Medicine; Visit Provider Nurse Practitioner Acute Care | DX: L89.312 Pressure ulcer of right buttock, stage 2 (principal); I48.20 Chronic atrial fibrillation, unspecified; I25.10 Atherosclerotic heart disease of native coronary artery without angina pectoris; I10 Essential (primary) hypertension; E78.5 Hyperlipidemia, unspecified; E11.9 Type 2 diabetes mellitus without complications; D64.9 Anemia, unspecified; D69.6 Thrombocytopenia, unspecified; C61 Malignant neoplasm of prostate; R33.9 Retention of urine, unspecified; Z95.5 Presence of coronary angioplasty implant and graft; Z85.048 Personal history of other malignant neoplasm of rectum, rectosigmoid junction, and anus | CPT/HCPCS: 99213; G0463 ==